=== PATIENT | male | born 1945 | race Caucasian/White ===

== ENCOUNTER 2016-10-30 10:42 | Inpatient (IN) | payer MEDICARE, OTHER ==
[~2016-10-30] VITALS: Ht 182.9 cm; Wt 93.4 kg
[~2016-10-30 10:42] MED LIST: AMPICILLIN 2 GM/2 G1 IV; ASPIRIN 81 MG E81 MG PO; ASPIRIN EC81 M1 PO; CATAPRES TTS-10.1 MG TD; CIPRO500 MG PO; COLACE100 MG PO; CORDARONE200 MG PO; CUBICIN500 MG IV; DEXTROSE 50%/WA50 M2 IV; DILAUD1MGAMP IV; DILAUDID 012 MG/30 M IV; DILAUDID2 MG PO; ELECTROLYTE MISC; ELIQUIS2.5 MG PO; FLORAJEN3 CAPS460 MG PO; FUROSEMIDE10 MG/M1 IV; FUROSEMIDE20 MG PO; FUROSEMIDE40 MG PO; GLUCAGEN1 MG/VIAL IM; GLUCAGEN1 MG/VIAL SC; GLUCOPHAGE1000 MG PO; GLUTOSE 1537.5 GM PO; HEP LOCK F IV; HUMALOG 30100 UNITS/ SC; HYDRALAZINE HCL25 MG PO; HYDRALAZINE20 MG/ML IV; HYDROCODONE-APA1 TAB PO; HYTRIN5 MG PO; HYZAAR 100-25 T1 TAB PO; IPRAT-ALBUT 0.5-3 ML UPD; K-DUR20 MEQ PO; K-TAB10 MEQ PO; KEFLEX500 MG PO; LOVENOX60 MG/0.6 SC; LYRICA75 MG PO; MAXIPIME 2 GM/D52 G1 IV; MERREM 1 GM/NS 11 G1 IV; MIRALAX17 GM PO; NALOXONE HC0.4 MG/M2 IV; NORCO 10/325 TA1 TA1; NYSTATIN1 PWD TOPICAL; OXYBUTYNIN CHLOR5 MG PO; OXYCODONE HCL5 MG PO; PERCOCET 10/3251 TA1 PO; PLAVIX75 MG PO; PRAVACHOL40 MG PO; PRINIVIL20 MG PO; PROTONIX40 MG PO; PROZAC40 MG PO; ROBAXIN500 MG PO; ROXICODONE15 MG PO; SALINE FLUSH10 ML IV; SANTYL30 GM TP; SLOW-MAG 64 MG64 MG PO; THERAGRAN M [BK1 TAB PO; TRICOR145 MG PO; VIBRAMYCIN 100100 MG PO; VIBRAMYCIN50 MG PO; XANAX0.25 MG PO; XANAX1 MG PO; ZOFRAN4 MG PO; ZOLOFT100 MG PO; ZYPREXA2.5 MG PO
[2016-10-30] MEDS ORDERED: ACIDOPHILUS LAC1 CAP PO (10:54)
[2016-10-30] MEDS ORDERED: MAG-OXIDE400 MG PO (10:56)
[2016-10-30] MEDS ORDERED: THEREMS-M1 TAB PO (10:57)
[2016-10-30] MEDS ORDERED: ESTER-C 500 MG1 TAB PO (10:59)
[2016-10-30] MEDS ORDERED: VITAMIN D5000 UNIT PO (11:00)
[2016-10-30] MEDS ORDERED: ARGININE500 MG PO (11:03)
[2016-10-30] MEDS ORDERED: ARGININE1 GM PO (11:06)
[2016-10-30] MEDS ORDERED: PRAVACHOL40 MG PO (11:09)
[2016-10-30] MEDS ORDERED: ZYPREXA5 MG PO (11:11)
[2016-10-30] MEDS ORDERED: CYMBALTA60 MG PO (11:13)
[2016-10-30] MEDS ORDERED: HYDRALAZINE HCL25 MG PO (11:14)
[2016-10-30] MEDS ORDERED: IPRAT-ALBUT 0.5-3 ML UPD (11:17)
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
[2016-10-30 13:51] VITALS: BP 162/70
--- NOTE | 2016-10-30 14:44 | NUR ---
WOUND CARE CONSULT: PT HAS OPEN WOUND ON RIGHT AKA SITE. MEASURES 5.5CM X 5.5CM X 0.5CM. WOUND BED IS RED/BEEFY. SURROUNDING SKIN IS NORMAL. NO TENDON, MUSCLE OR BONE EXPOSED. APPLIED WOUND VAC DRESSING. SETTINGS: -125MMHG/MOD/CONTINUOUS. ALSO NOTED STAGE 3 PRESSURE INJURY TO COCCYX 3.5CM X 2.5CM X 0.5CM ALSO STAGE 3 PRESSURE INJURY TO ISCHIAL TUBEROSITY MEASURING 2.1CM X 1CM X 0.4CM RECOMMEND MAXORB AG TO PRESSURE INJURIES. WILL CONTINUE TO MONITOR.
[2016-10-30 14:59] VITALS: BP 162/70
[2016-10-30 16:12] LABS: BASOPHILS 0.2 % (0.0-2.0); EOSINOPHILS 0.9 % (0-7); HEMATOCRIT 34.9 % (42.0-54.0); HEMOGLOBIN 11.1 g/dL (13.5-17.5); IMMATURE GRANULOCYTES 0.4 % (0-5); LYMPHOCYTES 18.6 % (15-50); MCH 28.6 pg (26.0-34.0); MCHC 31.8 g/dL (31.0-37.0); MCV 89.9 fL (80.0-100.0); MEAN PLATELET VOLUME 10.4 fL (7.4-10.4); MONOCYTES 7.8 % (2-11); NEUTROPHILS 72.1 % (40-80); PLATELET COUNT 195 10x3/uL (130-400); RBC 3.88 10x6/uL (4.20-6.10); RDW 17.4 % (11.5-14.5); WBC 4.5 10x3/uL (4.8-10.8)
[2016-10-30 16:34] LABS: HEMOGLOBIN A1C 5.7 % (4.8-6.0)
[2016-10-30 16:41] LABS: ALBUMIN 2.1 g/dL (3.4-5.0); ALKALINE PHOSPHATASE 54 U/L (46-116); ALT (SGPT) 15 U/L (10-68); BILIRUBIN - TOTAL 0.29 mg/dL (0.2-1.3); CALC OSMOLALITY 283 mosm/kg (275-300); CALCIUM 9.3 mg/dL (8.5-10.1); CARBON DIOXIDE 26.6 mmol/L (21.0-32.0); CHLORIDE - SERUM 108 mmol/L (98-107); CHOL - HDL RATIO 1.9 ratio (2.3-4.9); CHOLESTEROL, TOTAL 103 mg/dL (0-200); GLUCOSE 105 mg/dL (74-106); HDL CHOLESTEROL 53 mg/dL (32-96); LDL CHOLESTEROL 28 mg/dL (0-100); LDL-HDL RATIO 0.5 ratio (1.5-3.5); POTASSIUM - SERUM 3.8 mmol/L (3.5-5.1); PROTEIN - SERUM 6.4 g/dL (6.4-8.2); SODIUM 142 mmol/L (136-145); TRIGLYCERIDE 114 mg/dL (30-200); UREA NITROGEN 14 mg/dL (7-18); eGFR NON AFRICAN AMERICAN 78 mL/min (90-120)
--- NOTE | 2016-10-30 23:45 | NUR ---
B) Recieved laying in bed in his room, alert and oriented, calm and cooperative with assessment, tired and sleeping frequently, I) Administered perscribed medications whole with water, assessed wound vac. assessed FSBS, R) Medications compliant, friendly and pleasant, P) Continue plan of care, continue to monitor.
[2016-10-31 09:27] VITALS: BP 128/56
[2016-10-31 11:54] VITALS: Ht 182.9 cm; Wt 93.4 kg
--- NOTE | 2016-10-31 13:37 | NUR ---
RECEIVED IN BED THIS AM.WOUNDVAC TO RT.AKA INTACT WITH SCANT AMT.OF BLD TINGED DRAINAGE.DRESSING CHANGES DONE TO WOUNDS ON COCCYX AND LT BUTTOCK WITH MEPILEX DRESSING PER BERENICE DIGITAL PRINTER NURSE.IS ORIENTED ONLY TO SELF.STATES"WE ARE IN ASSISTED OR HALF-WAY." ATTEMPTS TO REORIENT TO PLACE AND TIME WITH POOR RESPONSE.LATER IN MORNING ASK "WHAT HAVE THEY CHARGED ME WITH?"IS CALM AND COOPERATIVE.WILL CONTINUE WITH PLAN OF CARE,MONITOR FOR CHANGES AND SAFETY.
--- NOTE | 2016-10-31 15:13 | NUR ---
PATIENT C/O BACK PAIN RATES PAIN 06/03, 15 MG OXYCONTIN PO PROVIDED N OW, WILL MONITOR.
--- NOTE | 2016-10-31 16:20 | NUR ---
SPOKE TO PATIENTS SPOUSE, SON AND DAUGHTER ABOUT PATIENTS STAY HERE AND THE MEDICATIONS, DID PRINT A MEDICATION LIST FOR THEM TO VIEW THE SON WAS VERY CURIOUS AND UPSET TO WHY HE IS ON ZYPREXA, ASKING "WELL, THAT'S FOR SCHIZOPHRENIA OR BIPOLAR, WOULD HE HAVE DEVELOPED IT?" TRIED TO REASSURE SON THAT ZYPREXA'S USE IN HIS DAD'S CASE IS TO HELP WITH THE HALLUCINATIONS AND THE AGGRESSION, EXPLAINED THAT ALL STAFF ARE MONITORING HIS BEHAVIOR AND WE WILL RELAY ALL ISSUES TO THE PSYCHIATRIST. FAMILY DO NO WANT PATIENT TO BE ON 17 MEDICATIONS AND THEY ARE IN HOPES THAT THE MEDICATIONS WILL BE DECREASED SOONER THAN LATER. REASSURED FAMILY THAT THE PSYCHIATRIST WILL ADJUST MEDICATIONS BASED ON HIS FINDINGS AND STAFF DO A REPORT WITH THE DAILY AND HE WILL SEE THE PATIENT DAILY EXCEPT TODAY. FAMILY VERBALIZED UNDERSTANDING.
[2016-10-31 19:45] VITALS: BP 140/56
--- NOTE | 2016-11-01 02:48 | NUR ---
B) Recieved sitting in a nae chair in the day room watching TV, Alert and oriented X 4, calm and cooperative with care, I) Administered perscribed medications, dressing changed on wound vac. two person assist to transfer with a dennis lift. R) medication compliant, resting quietly now, P) Continue plan of care, continue to monitor.
[2016-11-01 08:01] VITALS: BP 162/65
--- NOTE | 2016-11-01 14:26 | NUR ---
B) PATIENT IS AWAKE AND ALERT, ORIENTED TO PERSON AND TIME, I ASKED HIM "HOW ARE YOU" HE SAID "I ASKED MY WHY I COULDN'T GET OUT ON BAIL" EXPLAINED TO HIM THAT "YOU ARE NOT IN SNF, YOU ARE IN THE HOSPITAL, WE ARE TRYING TO MONITOR YOUR MEDICATIONS, THAT'S WHY YOU ARE HERE BECAUSE YOU WERE HALLUCINATING AND PARANOID AND AGGRESSIVE" HE NODDED HIS HEAD "YES". PATIENT IS CALM, BUT SEEING SOME CONFUSION TODAY. HE IS IN A [facility] CHAIR IN THE DAY ROOM, HE HAS RIGHT ABOVE THE KNEE AMPUTATION WITH WOUND VAC ON WOUND. I) PROVIDE PRESCRIBED MEDS, REDIRECT NEEDED. R) PATIENT IS COMPLIANT WITH MEDS, HE DID SHAVE AND BRUSH HIS TEETH. HE SAID HIS BOTTOM HURTS SO BAD THAT IF IT DIDN'T GET WELL SOON, HE WOULD JUST KILL HIMSELF, BUT HE SAID "IT JUST HURTS SO BAD, I HAVE TO SEE A SPECIALIST TO GET IT FIXED". P) CONTINUE PLAN OF CARE.
--- NOTE | 2016-11-01 17:50 | NUR ---
HAD MHT'S BRING PATIENT TO ROOM AND PUT HIM ON HIS SIDE HE IS STILL C/O PAIN IN HIS BUTTOCKS RATES IT 8/10 THE SAME PRIOR TO RECEIVING PAIN MEDICATION.
--- NOTE | 2016-11-01 18:03 | NUR ---
PATIENT IS IN HIS ROOM AND HE IS ON HIS LEFT SIDE OFF HIS BUTTOCKS, HE SAYS HIS BOTTOM IS EASING, BUT IT IS STILL PAINING HIM.
--- NOTE | 2016-11-01 21:16 | NUR ---
RECEIVED IN BEDROOM. LAYING IN BED WITH EYES CLOSED. RESPONDS TO VOICE. CALM AND COOPERATIVE WITH CARE AND ASSESSMENT. NO SIGNS OF HALLUCINATIONS. NO SIGNS OF PARANOIA. CONFUSED. REDIRECT AND REORIENT NEEDED. RESTING IN BED EYES CLOSED AT THIS TIME. CONTINUE PLAN OF CARE
--- NOTE | 2016-11-02 04:56 | NUR ---
In and out Goss cat to relieve urine at 0130, 850 ml laura colored urine collected.At 0212 gave PRN oxycodone 15 mg for back pain 8 of 10.
[2016-11-02 09:11] VITALS: BP 133/61
--- NOTE | 2016-11-02 10:15 | NUR ---
B.) Alert and oriented times three this am, answers questions appropriately. I.) Administer medications and monitor compliance, monitor for any abnormal behavior, redirect and reorient as need. R.) Compliant with medications, no aggression, calm and cooperative. Wound vac dressing in place to right AKA, chair alarm in place and functioning properly. P.) Continue plan of care.
[2016-11-02 12:12] LABS: VITAMIN D 25 HYDROXY 42.6 ng/mL (30.0-100.0)
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
[2016-11-02 20:34] VITALS: BP 135/55
--- NOTE | 2016-11-03 02:17 | NUR ---
RECEIVED IN BEDROOM. LAYING ON BED WITH EYES OPEN. NO SIGNS OF HALLUCINATIONS. NO SIGNS OF PARANOIA. CALM AND COOPERATIVE WITH CARE AND ASSESSMENT. NO SIGNS OF AGGRESSION. WOUND VAC ON. AIR MATTRESS ON. REINFORCE FALLS SAFETY. PM MEDS GIVEN ORDERED. RESTING EYES CLOSED AT THIS TIME. CONTINUE PLAN OF CARE
[2016-11-03 03:08] LABS: RAPID PLASMA REAGIN Non Reactive (Non Reactive)
[2016-11-03 06:13] LABS: FOLATE (FOLIC ACID) - SERUM 9.8 ng/mL (>3.0)
--- NOTE | 2016-11-03 09:19 | NUR ---
Nutrition Follow Up: Chart reviewed. Pt is well known to this RD from multiple previous admits. Pt has refused to eat Diabetic diet in the past and po intake greatly improved when diet was changed to Regular. Diet: Diabetic; Glucerna and Aaron BID PO Intake: 44% (9 meal avg) Stage III ulcer to coccyx; Open wound to R AKA site Wt stable +BM 11/03/16 Labs noted Meds: Humalog, Zofran, Vit D Pt with poor po intake at this time. Pt is not meeting est nutritional needs. Rec changing diet to Regular to promote po intake. Rec Zinc, MV, Vit C supplement daily to promote wound healing. Will continue to send Aaron and Glucerna BID. RD following.
[2016-11-03 12:33] VITALS: BP 131/67
--- NOTE | 2016-11-03 14:37 | NUR ---
(B)RECEIVED PATIENT SITTING IN A CHAIR AT THE NURSES STATION. ORIENTED TO SELF ONLY AEB RELATING HE IS IN "[facility] IN [place]" DAY "WEDNESDAY" AND MONTH "SEPTEMBER." POOR INSIGHT INTO THE REASON FOR HOSPITALIZATION RELATING "CAUSE I'M HURTING." WOUND VAC TO RIGHT AKA. STAGE 3 TO COCCYX AND DRESSING CHANGED PER ORDERS. FREQUENTLY SCOOTS DOWN IN CHAIR AND STAFF HAS TO REPOSITION HIM. FREQUENTLY ASKS TO GO TO THE BATHROOM AND WILL ONLY URINATE ABOUT THREE DROPS AND WILL ASK "WHY DO YOU ALL HAVE TO WATCH ME?" DELUSIONAL AND THINKS IS OUTSIDE TO GET HIM. (I)ADMINISTER MEDS AND MONITOR COMPLIANCE. REORIENT NEEDED. (R)MED COMPLIANT. POOR REORIENTATION DUE TO IMPAIRED ABILITY TO PROCESS AND RETAIN INFORMATION. CONTINUES TO BE CONFUSED AND DELUSIONAL. (P)CONTINUE POC AND MAINTAIN FALL PRECAUTIONS.
--- NOTE | 2016-11-03 14:57 | PN ---
PATIENT:SUGAR LIVE MEDICAL RECORD: [id number] LOCATION:[facility] ADMISSION DATE: 10/30/16 PROGRESS NOTE DATE OF SERVICE: 11/02/2016 SUBJECTIVE: The patient's case was discussed with staff. He has no new complaint. OBJECTIVE: The patient is in good behavioral control with limited insight about his condition. He does tolerate his medicines well. ASSESSMENT: No change in diagnoses. PLAN: The patient has no evidence of acute or direct dangerousness to himself or others if this level of improvement is maintained, I anticipate transitioning him of the hospital tomorrow morning. He should return to rehabilitation. His long-term prognosis is guarded. He is clearly much better since he was admitted and I am gathering that there was some factor affecting his cognition causing a delirium and that is what resulted in the aggressive behavior. TRANSINT:[id number] Voice Confirmation ID: [id number] DOCUMENT ID: [id number] RAFIA DEE MD at 1457 CC: [id number] DICTATION DATE: 11/02/16 1515 LASTING ROOM MACHINE OPERATOR: 11/02/16 1806 ADM IN [facility] [id number] [place] [address]
--- NOTE | 2016-11-03 15:10 | NUR ---
PATIENT DISCHARGED TO [facility] ACCOMPANIED BY AND KERSHAW STAFF VIA FACILITY [facility]AN. PERSONAL BELONGINGS SENT WITH FAMILY AND FACILITY STAFF. PAPERWORK SENT WITH FACILITY STAFF. CONDITION STABLE AT TIME OF DISCHARGE.
--- NOTE | 2016-11-04 12:46 | PN ---
PATIENT:SUGAR LIVE MEDICAL RECORD: [id number] LOCATION:[facility] ADMISSION DATE: 10/30/16 PROGRESS NOTE DATE OF SERVICE: 11/03/2016 SUBJECTIVE: The patient's case was discussed with staff. He has no new complaint. OBJECTIVE: The patient is no longer aggressive or hallucinating. The reason for improvement is uncertain. He will be transitioned out of the hospital and back into rehabilitative services today as he is no longer aggressive. TRANSINT:[id number] Voice Confirmation ID: [id number] DOCUMENT ID: [id number] RAFIA DEE MD at 1246 CC: [id number] DICTATION DATE: 11/03/16 1511 DELIVERY TECHNICIAN: 11/03/16 1531 DIS IN 11/03/16 [facility] [address] [place] [address]
--- NOTE | 2016-11-12 14:27 | DS ---
PATIENT:SUGAR LIVE :41 MEDICAL RECORD: [id number] DISCHARGE SUMMARY ADMISSION DATE: 10/30/16 DISCHARGE DATE: 11/03/16 IDENTIFYING DATA: The patient is 71 years old and he was admitted to the hospital on a voluntary basis secondary to aggression. The patient lives in a local intermediate and he has been aggressive and threatening toward the staff there. The patient says he does not recall any of this and goes on to make an explanation of how he has been mistreated there and the explanation does not really make any kind of logical, coherent sense. He endorsed numerous depressive symptoms. He denied that he was depressed. He clearly had evidence of significant cognitive impairment. He denied substance abuse. He denied psychotic symptoms as well as thoughts of harming himself or others. HOSPITAL COURSE: The patient was admitted to the hospital on a voluntary basis. He was found to be seriously and significantly demented. He was treated with both mood stabilizing and memory enhancing medications and he did show significant improvement through the course of his hospitalization. He was much less angry and labile and showed no evidence of acute or direct dangerousness as well as thoughts of self-harm when he was discharged. He was also treated with antidepressant medication. DISCHARGE DIAGNOSES: AXIS I: Major depression, severe, recurrent without psychotic features. Senile dementia of the Alzheimer's type. AXIS II: None. AXIS III: Diabetes and hypertension. AXIS IV: Moderate stressors. AXIS V: Global assessment of functioning is 35. PLAN: At the time of discharge, the patient was in good behavioral control. He had no evidence of acute or direct dangerousness to himself or others. He will be continued on current medications and follow up will be with his primary care physician. TRANSINT:[id number] Voice Confirmation ID: [id number] DOCUMENT ID: [id number] RAFIA DEE MD at 1427 CC: [id number] DICTATION DATE: 11/11/161705 TRACK REPAIRER HELPER: 11/11/16 171 DIS IN 11/03/16 [id number] [place] [address]
[2016-12-18] MEDS ORDERED: HYDROCODONE-APA1 TAB PO (14:58)
== END 2016-11-03 15:10 | DRG 885 ==
LOC: D.PSYCH 10:42
PROVIDERS: ADMIT Psychiatry & Neurology Psychiatry
DX: F33.2 Major depressive disorder, recurrent severe without psychotic features (principal); F02.81 Dementia in other diseases classified elsewhere, unspecified severity, with behavioral disturbance; G30.1 Alzheimer's disease with late onset; E11.22 Type 2 diabetes mellitus with diabetic chronic kidney disease; I12.9 Hypertensive chronic kidney disease with stage 1 through stage 4 chronic kidney disease, or unspecified chronic kidney disease; N18.3 Chronic kidney disease, stage 3 (moderate); Z79.4 Long term (current) use of insulin; E11.40 Type 2 diabetes mellitus with diabetic neuropathy, unspecified; E55.9 Vitamin D deficiency, unspecified; I73.9 Peripheral vascular disease, unspecified; I25.10 Atherosclerotic heart disease of native coronary artery without angina pectoris; M47.9 Spondylosis, unspecified; L89.159 Pressure ulcer of sacral region, unspecified stage; L89.319 Pressure ulcer of right buttock, unspecified stage; E78.5 Hyperlipidemia, unspecified; Z95.5 Presence of coronary angioplasty implant and graft; Z89.611 Acquired absence of right leg above knee

== ENCOUNTER 2016-11-07 12:48 | Inpatient (IN) | payer MEDICARE, OTHER ==
[~2016-11-07] VITALS: Ht 182.9 cm; Wt 94.8 kg
[~2016-11-07 12:48] MED LIST changes: +ACIDOPHILUS LAC1 CAP PO; +ARGININE1 GM PO; +ARGININE500 MG PO; +CYMBALTA60 MG PO; +ESTER-C 500 MG1 TAB PO; +MAG-OXIDE400 MG PO; +THEREMS-M1 TAB PO; +VITAMIN D5000 UNIT PO; +ZYPREXA5 MG PO
[2016-11-07 13:29] LABS: BASOPHILS 0.2 % (0.0-2.0); EOSINOPHILS 0 % (0-7); HEMATOCRIT 34.1 % (42.0-54.0); HEMOGLOBIN 10.6 g/dL (13.5-17.5); IMMATURE GRANULOCYTES 0.3 % (0-5); LYMPHOCYTES 2.8 % (15-50); MCHC 31.1 g/dL (31.0-37.0); MCV 90.2 fL (80.0-100.0); MEAN PLATELET VOLUME 9.7 fL (7.4-10.4); MONOCYTES 2.8 % (2-11); NEUTROPHILS 93.9 % (40-80); PLATELET COUNT 200 10x3/uL (130-400); RBC 3.78 10x6/uL (4.20-6.10); RDW 16.6 % (11.5-14.5)
[2016-11-07 13:47] LABS: ALBUMIN 2.1 g/dL (3.4-5.0); ANION GAP 11.4 mmol/L (8-16); BILIRUBIN - TOTAL 0.37 mg/dL (0.2-1.3); CALCIUM 8.9 mg/dL (8.5-10.1); CARBON DIOXIDE 26.7 mmol/L (21.0-32.0); CREATININE - SERUM 1.4 mg/dL (0.6-1.3); MAGNESIUM - SERUM 1.5 mg/dL (1.8-2.4); POTASSIUM - SERUM 3.1 mmol/L (3.5-5.1); PROTEIN - SERUM 6.1 g/dL (6.4-8.2)
[2016-11-07 14:48] LABS: APPEARANCE CLOUDY (CLEAR); BILIRUBIN NEGATIVE (NEGATIVE); COLOR YELLOW (YELLOW); GLUCOSE NEGATIVE (NEGATIVE); KETONE NEGATIVE (NEGATIVE); LEUKOCYTE ESTERASE 2+ (NEGATIVE); NITRITE NEGATIVE (NEGATIVE); PROTEIN 2+ mg/dL (NEGATIVE); SPECIFIC GRAVITY 1.015 (1.005-1.020); UROBILINOGEN NORMAL (NORMAL)
[2016-11-07 14:51] LABS: BACTERIA MANY /hpf (NONE SEEN); EPITHELIAL CELLS 0-5 /hpf (0-5); RED CELLS - URINE 0-5 /hpf (0-5)
--- NOTE | 2016-11-07 16:35 | NUR ---
A 73 YEAR OLD ADMITTED TO ROOM 2235 VIA CART FROM ER S/O C/C OF UTI SESPIS WOUND INFECTION AT PRESENT.PLAN OF CARE GONE OVER WITH PT AND .WOUND BUTTOCK AT PRESENT FOUL SMELLING AT PRESENT HOLE IN BUTTOCK HAS HOLE NOTED AT PRESENT.
[2016-11-07 16:39] VITALS: BP 94/38
[2016-11-07 19:00] VITALS: BP 113/55
--- NOTE | 2016-11-07 19:00 | NUR ---
SLEEPING QUIETLY AT PRESENT N/C AT PRESENT.
--- NOTE | 2016-11-07 20:00 | NUR ---
REC'D IN LYING IN BED AWAKE AND ALERT TO SELF. RESP EVEN AND UNLABORED WITH NO DISTRESS NOTED. CAN EXPRESS SOME NEEDS AND WANTS. IV NOTED TO RIGHT WRIST WITH NO REDNESS OR SWELLING NOTED. ASSESSMENT COMPLETED. C/L IN REACH AT BEDSIDE.
[2016-11-07 20:12] VITALS: BP 94/56; BMI 28.4
[2016-11-08] VITALS: BP 106/46
--- NOTE | 2016-11-08 01:19 | NUR ---
RESTING WELL AT THIS TIME WITH NO C/O NOTED OR VOICED. C/L IN REACH AT BEDSIDE.
--- NOTE | 2016-11-08 02:37 | NUR ---
PT IS ALSEEP WITH EASY RESPIRATIONS AND NO DISTRESS NOTED. HIS RT AKA IS DRESSED AND THERE IS TELEMETRY IN PLACE. THE BED IS LOW, RAILS UP X'S 2 WITH THE CALL LIGHT AT HAND.
[2016-11-08 04:00] VITALS: BP 143/72
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
[2016-11-08 07:37] LABS: BASOPHILS 0 % (0.0-2.0); EOSINOPHILS 0 % (0-7); HEMATOCRIT 32.3 % (42.0-54.0); HEMOGLOBIN 9.9 g/dL (13.5-17.5); IMMATURE GRANULOCYTES 0.2 % (0-5); MCH 27.8 pg (26.0-34.0); MCHC 30.7 g/dL (31.0-37.0); MCV 90.7 fL (80.0-100.0); MONOCYTES 1.2 % (2-11); NEUTROPHILS 93.6 % (40-80); PLATELET COUNT 183 10x3/uL (130-400); RBC 3.56 10x6/uL (4.20-6.10); RDW 16.8 % (11.5-14.5); WBC 8.6 10x3/uL (4.8-10.8)
[2016-11-08 07:56] LABS: ALBUMIN 1.9 g/dL (3.4-5.0); BILIRUBIN - TOTAL 0.3 mg/dL (0.2-1.3); CALCIUM 8.4 mg/dL (8.5-10.1); CARBON DIOXIDE 25.4 mmol/L (21.0-32.0); CREATININE - SERUM 1.4 mg/dL (0.6-1.3); PROTEIN - SERUM 6.1 g/dL (6.4-8.2)
[2016-11-08 07:57] LABS: ANION GAP 11.8 mmol/L (8-16); POTASSIUM - SERUM 4.2 mmol/L (3.5-5.1)
[2016-11-08 08:24] VITALS: BP 126/51
--- NOTE | 2016-11-08 11:05 | NUR ---
PATIENT IN BED WITH EYES OPENED. TELEMETRY PLACED BACK ON PATIENT. EXPLAINED NEEDED TO LEAVE ON PER DR. CHAVEZ. PATIENT CONFUSED AND NOT UNDERSTANDING WHAT TELEMETRY IS FOR. FAMILY AT BEDSIDE. CALL LIGHT WITHIN REACH.
[2016-11-08 11:52] VITALS: BP 129/82
--- NOTE | 2016-11-08 16:23 | NUR ---
NORMAL SALINE WET TO DRY DRESSING APPLIED TO RIGHT AKA USING 4X4 AND TAPE. WILL CONTINUE TO MONITOR.
[2016-11-08 16:27] VITALS: BP 146/44
[2016-11-08 19:00] VITALS: BP 156/80
--- NOTE | 2016-11-08 19:55 | NUR ---
RECIEVED PT LYING IN BED AWAKE, EXTREME CONFUSION NOTED, NO CURRENT ANXIETY OR SS OF DISTRESS NOTED, IV SITE TO R HAND WRAPPED FOR PROTECTION, SR'S UP X3, CL IN REACH, ALARM ON, DOOR OPEN FOR EASY VIEWING, WILL MONITOR
--- NOTE | 2016-11-08 21:23 | NUR ---
MEDS GIVEN PER MAR, RAIMUNDO WELL, SAFETY PRECATIONS IN PLACE, CL IN REACH
--- NOTE | 2016-11-09 03:30 | NUR ---
LYING IN BED AWAKE, REMAINS PLEASANTLY CONFUSED, NO DISTRESS NOTED, SAFETY PRECAUTIONS IN PLACE
[2016-11-09 04:00] VITALS: BP 171/78
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
--- NOTE | 2016-11-09 09:45 | NUR ---
PATIENTS ARRIVED AND PT SEEMS TO BE MORE CALM AND MORE ORIENTED TO WHAT IS GOING ON. HE WAS ABLE TO STATE THAT HE WAS IN THE HOSPOTAL AND DID NOT REMEMBER WHAT HAD HAPPENED EARLIER THIS MORNING. BED IN LOW POSITION AND CALL LIGHT WITHIN REACH. WILL CONTINUE TO MONITOR.
[2016-11-09 10:20] VITALS: BP 151/89
--- NOTE | 2016-11-09 11:30 | NUR ---
PLACED PT ON CONTACT ISOLATION PER TR AT THIS TIME.
--- NOTE | 2016-11-09 12:06 | NUR ---
WOUND CARE CONSULT: NOTED STAGE 3 PRESSURE INJURY TO SACRUM MEASURING 3.5CM X 2CM X 1.5CM X 1CM FROM 10-2 OCLOCK. WOUND BED IS PINK AND SHINY WITH ODOR. MODERATE SEROUS DRAINAGE NOTED. CLEANSED WELL WITH WOUND CRM COORDINATOR AND LOOSELY PACKED WITH KERLIX SOAKED WITH NS. WILL DISCUSS WITH DR. WHITE/DR. ANTUNEZ ABOUT POSSIBLE WOUND VAC PLACEMENT. ALSO NOTED REDNESS TO LEFT SACRAL AREA BLANCHABLE. RIGHT SACRAL AREA STAGE 3 PRESSURE INJURY MEASURES 1.5CM X 1CM/YELLOW/PINK WOUND BED. SMALL SEROUS DRAINAGE. RIGHT AKA LOOKS GOOD. WOUND VAC WAS D/C'D LAST WEEK. WOUND MEASURES 5CM X 3CM WITH RED GRANULATING WOUND BED. NO ODOR NOTED. SMALL SEROUS DRAINAGE. WILL CONTINUE TO MONITOR.
[2016-11-09 13:50] VITALS: BP 165/56
--- NOTE | 2016-11-09 14:16 | NUR ---
Patient Name: SUGAR LIVE Admission Status: ER Accout number: [id number] Admission Date: 11-07-2016 : 1945 Admission Diagnosis: Attending: CLAIRE Current LOS: 2 Anticipated DC Date: 11-13-2016 [facility]position[facility] Primary Insurance: MEDICARE A & B Discharge Planning Comments: CM MET WITH PATIENT AND (ASHLEY) REGARDING D/C NEEDS AND PLANS. PATIENT IS CURRENTLY IN [facility] AND WILL GO THERE AT DISCHARGE IF DOES NOT GO HOME. PATIENT IS WANTING TO GO HOME WITH HOME HEALTH AT DISCHARGE IF DOCTOR AGREES TO THAT PLAN INSTEAD OF BACK TO REHAB. PATIENT STATED HE HAS A FLAT ENTRANCE TO HIS HOME AND NO STAIRS INSIDE. PATIENTS PCP IS DR. SY AND USES [facility]. PATIENT STATED HE IS PARTIAL INDEPENDENT WITH HIS CARE THAT HIS HELPS HIM WITH BATHING AND DRESSING. PATIENTS PCP IS DR. SY AND PHARMACY IS [facility]. CM TOLD WE WOULD NEED TO PICK A HOME HEALTH IF HE GOES HOME AND A LIST WAS GIVEN TO HER. CM WILL CONTINUE TO FOLLOW PATIENT WITH D/C NEEDS AND PLANS. PCP DR. SY [facility]- [phone] JEAN (SPOUSE) [phone] Website Designer: Bev Rodriguez Is the patient Alert and Oriented? No 0 * How many steps to enter\exit or inside your home? 0 0 * PCP DR. SY 0 * Pharmacy [facility] 0 * Preadmission Environment [facility] 0 * Facility Name [facility] 0 * ADLs Partial Dependent 0 * Partial ADLs (Assistance needed) Bathing Dressing Medication Management Toileting Transfers 0 * Equipment Walker Wheelchair 0 * Other Equipment [facility] 0 * List name and contact numbers for known caregivers / representatives who currently or will assist patient after discharge: JEAN [phone] * Additional services required to return to the preadmission environment? Yes 0 * Can the patient safely return to the preadmission environment? Yes 0 * Has this patient been hospitalized within the prior 30 days at any hospital? Yes 0 Grand Total: 0
[2016-11-09 14:20] LABS: BASOPHILS 0 % (0.0-2.0); EOSINOPHILS 0 % (0-7); HEMATOCRIT 31.4 % (42.0-54.0); IMMATURE GRANULOCYTES 0.4 % (0-5); LYMPHOCYTES 4.9 % (15-50); MCH 28.4 pg (26.0-34.0); MCHC 31.8 g/dL (31.0-37.0); MCV 89.2 fL (80.0-100.0); MONOCYTES 4.3 % (2-11); NEUTROPHILS 90.4 % (40-80); PLATELET COUNT 201 10x3/uL (130-400); RBC 3.52 10x6/uL (4.20-6.10); RDW 16.7 % (11.5-14.5); WBC 6.7 10x3/uL (4.8-10.8)
[2016-11-09 14:34] LABS: ALKALINE PHOSPHATASE 38 U/L (46-116); ALT (SGPT) 22 U/L (10-68); BILIRUBIN - TOTAL 0.34 mg/dL (0.2-1.3); CALC OSMOLALITY 291 mosm/kg (275-300); CALCIUM 8.9 mg/dL (8.5-10.1); CARBON DIOXIDE 25.8 mmol/L (21.0-32.0); CHLORIDE - SERUM 108 mmol/L (98-107); GLUCOSE 148 mg/dL (74-106); POTASSIUM - SERUM 4.3 mmol/L (3.5-5.1); PROTEIN - SERUM 5.8 g/dL (6.4-8.2); SODIUM 143 mmol/L (136-145); UREA NITROGEN 23 mg/dL (7-18)
[2016-11-09 14:35] LABS: CREATININE - SERUM 0.9 mg/dL (0.6-1.3); eGFR NON AFRICAN AMERICAN 88 mL/min (90-120)
[2016-11-09 16:58] VITALS: BP 136/92
--- NOTE | 2016-11-09 17:37 | NUR ---
QUIET IN ROOM AT PRESENT DENIES ANY NEEDS AT BEDSIDE.
--- NOTE | 2016-11-09 19:37 | NUR ---
FIRST STEP OVERLAY BED NOT APPLIED DURING DAY SHIFT. TASK PASSED ON IN REPORT TO CHRISTIANO TAVERA.
--- NOTE | 2016-11-09 20:13 | NUR ---
PT LYING IN BED AWAKE, ASSESSMENT COMPLETED, CONFUSION WITH PARANOIA NOTED, NO ACUTE DISTRESS, SAFETY MEASURES IN PLACE, WILL MONITOR
[2016-11-09 21:00] VITALS: BP 171/68
--- NOTE | 2016-11-09 21:32 | NUR ---
ROUTINE MEDS GIVEN PER MAR ALONG WITH 2 UNITS OF INSULIN PER SLIDING SCALE FOR BS OF 198, RAIMUNDO WELL, WILL CONTINUE TO MONITOR
--- NOTE | 2016-11-09 23:40 | NUR ---
LYING IN BED AWAKE, NO DISTRESS NOTED, DENIES NEEDS, SAFETY MEASURES IN PLACE
[2016-11-10] VITALS (9 sets, daily range): BP systolic 122–173; BP diastolic 58–80; Ht 182.9 cm; Wt 94.8 kg
[2016-11-10 05:48] LABS: BASOPHILS 0.2 % (0.0-2.0); EOSINOPHILS 0 % (0-7); HEMATOCRIT 30.8 % (42.0-54.0); HEMOGLOBIN 9.8 g/dL (13.5-17.5); IMMATURE GRANULOCYTES 0.7 % (0-5); LYMPHOCYTES 9.4 % (15-50); MCH 28.3 pg (26.0-34.0); MCHC 31.8 g/dL (31.0-37.0); MEAN PLATELET VOLUME 9.8 fL (7.4-10.4); MONOCYTES 5.5 % (2-11); NEUTROPHILS 84.2 % (40-80); PLATELET COUNT 198 10x3/uL (130-400); RBC 3.46 10x6/uL (4.20-6.10); RDW 16.9 % (11.5-14.5)
[2016-11-10 06:04] LABS: WBC 4.3 10x3/uL (4.8-10.8)
[2016-11-10 06:13] LABS: ALBUMIN 1.9 g/dL (3.4-5.0); ANION GAP 11.8 mmol/L (8-16); BILIRUBIN - TOTAL 0.2 mg/dL (0.2-1.3); CALCIUM 8.7 mg/dL (8.5-10.1); CARBON DIOXIDE 24.6 mmol/L (21.0-32.0); CREATININE - SERUM 1.1 mg/dL (0.6-1.3); POTASSIUM - SERUM 4.4 mmol/L (3.5-5.1); PROTEIN - SERUM 5.8 g/dL (6.4-8.2)
--- NOTE | 2016-11-10 07:35 | NUR ---
TELEPHONE CONSENT OBTAINED WITH CHRISTIANO BAUMAN A WITNESS FOR PROCEDURE, BLOOD AND ANESTHESIA CONSENT. SPOKE WITH PT'S , ASHLEY.
--- NOTE | 2016-11-10 08:05 | NUR ---
MEPILEX DRESSING APPLIED TO PT'S BUTTOCK AT THIS TIME. HIBICLENS BATH PROVIDED AND DRESSING TO RIGH STUMP PERFORMED PER ORDER. IV TO RIGHT HAND PATENT. PT ALERT AND ORIENTED X3. 1ST STEP OVERLAY APPLIED TO PT'S BED AND SCD APPLIED TO LLE. ASSESSMENT PERFORMED PER FLOWSHEET. PRN PERCOCET ADMINISTERED PER ORDER WELL SOLU MEDROL. MEDICATION GIVEN WITH SMALL SIP OF WATER. CALL LIGHT IN REACH AND RAMILA MAT ALARM IN USE FOR FALL PRECAUTION . DOOR OPEN, SRX2 AND BED IN LOWEST POSITION AND LOCKED. REMAINS IN CONTACT ISOLATION. WILL CONTINUE WITH PLAN OF CARE.
--- NOTE | 2016-11-10 10:06 | NUR ---
SPOKE WITH OSITO IN SURGERY AND EXPLAINED THAT NO ORDERS WERE AVAILABLE FOR PRE OPERATIVE MEDICATIONS. HE STATED, "CHECK AGAIN IN 10-15 MINUTES."
--- NOTE | 2016-11-10 10:29 | NUR ---
ARMANDO FROM SURGERY HERE FOR PT AT THIS TIME. EXPLAINED THAT NO PRE OP MEDS ORDERED AND ALREADY SPOKE WITH SURGERY REGARDING THIS. NOTE PLACED TO FRONT OF CHART THAT PRE OP MED NOT GIVEN BECAUSE NONE WERE ORDERED. TO OR AT THIS TIME. WILL MONITOR PT WHEN HE RETURNS.
--- NOTE | 2016-11-10 13:00 | NUR ---
RECEIVED BACK TO ROOM 2235 AT THIS TIME FROM RECOVERY VIA BED. AND FAMILY MEMBER AT BEDSIDE. WOUND VAC PRESENT TO COCCYX AND FRIEND PATENT AND DRAINING TO GRAVITY. IV TO RIGHT HAND PATENT. C/O PAIN. REMAINS IN ISOLATION. WILL CONTINUE WITH PLAN OF CARE. POST OP VITALS INITIATED PER PROTOCOL.
--- NOTE | 2016-11-10 14:43 | NUR ---
PRN PERCOCET-5 ADMINISTERED FOR PAIN PER ORDER AT THIS TIME. PAIN 4/10 IN SACRAL AREA. REMAINS AT BEDSIDE. WILL CONTINE WITH PLAN OF CARE.
--- NOTE | 2016-11-10 16:59 | NUR ---
MAGGIE SET UP ON PT'S BED AT THIS TIME. FRIEND CARE PROVIDED WITH FRIEND CARE WIPES AND STICKER PLACED ON FRIEND CASSETTE. REMAINS AT BEDSIDE. CONTINUES TO FOLLOW CONTACT ISOLATION PROCEDURES. DENIES NEED FOR PAIN MEDICATIONS. WOUND VAC PRESENT AND PATENT TO SACRUM. CALL LIGHT IN REACH, RAMILA MAT ALARM IN USE. SCD TO LEFT LEG. WILL CONTINUE WITH PLAN OF CARE.
--- NOTE | 2016-11-10 20:23 | NUR ---
ASSESSMENT COMPLETED, NO ACUTE DISTRESS NOTED, WOUND VAC IN PLACE SUCTIONING AT 125MM/HG, SAFETY MEASURES IN PLACE, CL IN REACH, DOOR OPEN FOR EASY MONITORING
--- NOTE | 2016-11-10 21:25 | NUR ---
MEDS GIVEN PER MAR, INSULIN HELD PER SLIDING SCALE FOR BS OF 103, SAFETY MEASURES IN PLACE, WILL MONITOR
--- NOTE | 2016-11-10 23:28 | NUR ---
PRN PERCOCET AND ZOFRAN GIVEN FOR C/O PAIN AND NAUSEA, RAIMUNDO WELL, NO OTHER NEEDS NOTED, SAFETY MEASURES IN PLACE
--- NOTE | 2016-11-11 01:33 | NUR ---
RESTING WITH EYES CLOSED, RESP WITH EASE, NO DISTRESS NOTED, SAFETY MEASURES IN PLACE, CL IN REACH
[2016-11-11 04:00] VITALS: BP 152/73
[2016-11-11 06:50] LABS: BASOPHILS 0 % (0.0-2.0); EOSINOPHILS 0 % (0-7); HEMATOCRIT 31.6 % (42.0-54.0); HEMOGLOBIN 9.9 g/dL (13.5-17.5); IMMATURE GRANULOCYTES 1.4 % (0-5); LYMPHOCYTES 8.9 % (15-50); MCHC 31.3 g/dL (31.0-37.0); MCV 89.3 fL (80.0-100.0); MEAN PLATELET VOLUME 10.3 fL (7.4-10.4); MONOCYTES 6.7 % (2-11); PLATELET COUNT 235 10x3/uL (130-400); RBC 3.54 10x6/uL (4.20-6.10); RDW 16.9 % (11.5-14.5); WBC 4.2 10x3/uL (4.8-10.8)
[2016-11-11 07:14] LABS: ANION GAP 12.1 mmol/L (8-16); BILIRUBIN - TOTAL 0.2 mg/dL (0.2-1.3); CALCIUM 8.5 mg/dL (8.5-10.1); CREATININE - SERUM 1.1 mg/dL (0.6-1.3); POTASSIUM - SERUM 4.1 mmol/L (3.5-5.1); PROTEIN - SERUM 5.4 g/dL (6.4-8.2)
--- NOTE | 2016-11-11 07:45 | NUR ---
REMAINS IN CONTACT ISOLATION. ALERT AND ORIENTED. DENIES NEEDS AT THIS TIME. CALL LIGHT IN REACH, DOOR OPEN AND RAMILA MAT ALARM IN USE. WILL CONTINUE WITH PLAN OF CARE.
[2016-11-11 08:24] VITALS: BP 148/70
--- NOTE | 2016-11-11 09:19 | NUR ---
SCHEDULED MEDICATIONS ADMINISTERED AT THIS TIME. PRN PERCOCET-5 ADMINISTERED FOR PAIN. FRIEND CATHETER CARE PROVIDED WITH CATHETER CARE WIPES. DRESSING CHANGE TO RIGHT STUMP PERFORMED PER ORDER. AT BEDSIDE. PT REMAINS IN CONTACT ISOLATION. WILL CONTINUE WITH PLAN OF CARE.
[2016-11-11 12:43] VITALS: BP 141/87
--- NOTE | 2016-11-11 15:34 | NUR ---
CM REASSESSMENT NOTE: CM SPOKE WITH PATIENT AND REGARDING HOME HEALTH AND A HOSPITAL BED WITH AIR MATTRESS. PATIENT CHOSE [facility] AND SIGNED THE [facility]OUTH FORM. PATIENT AND WANTS TO SPEAK TO DR. FRIEDMAN TOMORROW REGARDING THE HOSPITAL BED AND AIR MATTRESS. CM WILL CONTINUE TO FOLLOW PATIENT WITH D/C NEEDS AND PLANS.
--- NOTE | 2016-11-11 15:34 | NUR ---
SCHEDULED MEDICATIONS ADMINISTERED AT THIS TIME. PRN PERCOCET-5 ADMINISTERED PER ORDER FOR PAIN 6/10 INCISIONALLY. AT BEDSIDE. REMAINS IN CONTACT ISOLATION.
[2016-11-11 16:21] VITALS: BP 143/74
[2016-11-11 19:00] VITALS: BP 170/76
[2016-11-12 04:00] VITALS: BP 157/69
--- NOTE | 2016-11-12 04:00 | NUR ---
RN NOTE: PT RESTING QUIETLY IN SEMI MEDINA'S POSITION. SIDE RAILS UP X2 FOR SAFETY. CALL LIGHT WITHIN REACH.
[2016-11-12 05:25] LABS: BASOPHILS 0.2 % (0.0-2.0); EOSINOPHILS 0 % (0-7); HEMATOCRIT 29.8 % (42.0-54.0); HEMOGLOBIN 9.2 g/dL (13.5-17.5); IMMATURE GRANULOCYTES 3.5 % (0-5); LYMPHOCYTES 19.1 % (15-50); MCH 27.8 pg (26.0-34.0); MCHC 30.9 g/dL (31.0-37.0); MEAN PLATELET VOLUME 10.1 fL (7.4-10.4); MONOCYTES 8.5 % (2-11); NEUTROPHILS 68.7 % (40-80); PLATELET COUNT 209 10x3/uL (130-400); RBC 3.31 10x6/uL (4.20-6.10); RDW 16.9 % (11.5-14.5); WBC 5.2 10x3/uL (4.8-10.8)
[2016-11-12 06:08] LABS: ALBUMIN 1.9 g/dL (3.4-5.0); ALKALINE PHOSPHATASE 45 U/L (46-116); ALT (SGPT) 20 U/L (10-68); CALC OSMOLALITY 284 mosm/kg (275-300); CALCIUM 9.1 mg/dL (8.5-10.1); CARBON DIOXIDE 29.2 mmol/L (21.0-32.0); CHLORIDE - SERUM 108 mmol/L (98-107); POTASSIUM - SERUM 3.8 mmol/L (3.5-5.1); PROTEIN - SERUM 5.4 g/dL (6.4-8.2); SODIUM 142 mmol/L (136-145); UREA NITROGEN 19 mg/dL (7-18); eGFR NON AFRICAN AMERICAN 78 mL/min (90-120)
[2016-11-12 06:09] LABS: GLUCOSE 94 mg/dL (74-106)
--- NOTE | 2016-11-12 07:30 | NUR ---
PATIENT IN SEMIFOWLER POSITION WITH EYES OPENED, TALKING ON THE PHONE. ASSESSMENT COMPLETED AT THIS TIME. NO NEEDS VOICED EXCEPT FOR A CUP OF ICE. CUP OF ICE WAS GIVEN.
[2016-11-12 08:35] VITALS: BP 135/63
--- NOTE | 2016-11-12 10:25 | NUR ---
PATIENTS PAIN IS NOT CONTROLLED WITH HIS PERCOCET AND MORPHINE. PAIN LEVEL DROPPED "FOR A FEW MINUTES" BUT IS "STAYING AROUND A 7 OR HIGHER". CALL WAS PLACED TO MARIA C SUN WITH DR FRIEDMAN. NEW ORDERS RECEIVED.
--- NOTE | 2016-11-12 12:39 | NUR ---
NUTRITION MONITORING & EVAL CHART REVIEWED. PT REMAINS IN ISOLATION. TOLERATING DIABETIC DIET. 75% INTAKE RECENT MEALS. RD FOLLOWING
[2016-11-12 12:48] VITALS: BP 124/56
--- NOTE | 2016-11-12 16:12 | NUR ---
HAVE DISCUSSED WITH HOW THE ELEVATED BLOOD SUGARS HINDER HEALING, YET KEEPS GIVING PATIENT FOODS THAT HE SHOULD NOT EAT.
[2016-11-12 16:37] VITALS: BP 127/56
[2016-11-12 22:41] VITALS: BP 147/92
[2016-11-13] VITALS: BP 161/60
[2016-11-13 06:07] VITALS: BP 112/34
[2016-11-13 06:47] LABS: BASOPHILS 0.1 % (0.0-2.0); EOSINOPHILS 0 % (0-7); HEMATOCRIT 31.4 % (42.0-54.0); HEMOGLOBIN 9.9 g/dL (13.5-17.5); IMMATURE GRANULOCYTES 4.2 % (0-5); LYMPHOCYTES 9.7 % (15-50); MCH 28.3 pg (26.0-34.0); MCHC 31.5 g/dL (31.0-37.0); MCV 89.7 fL (80.0-100.0); MEAN PLATELET VOLUME 10.2 fL (7.4-10.4); PLATELET COUNT 231 10x3/uL (130-400); RDW 16.7 % (11.5-14.5)
[2016-11-13 06:49] LABS: WBC 6.7 10x3/uL (4.8-10.8)
[2016-11-13 07:05] LABS: ALBUMIN 1.9 g/dL (3.4-5.0); ALKALINE PHOSPHATASE 66 U/L (46-116); ALT (SGPT) 18 U/L (10-68); CALCIUM 8.6 mg/dL (8.5-10.1); CARBON DIOXIDE 25.3 mmol/L (21.0-32.0); CHLORIDE - SERUM 106 mmol/L (98-107); CREATININE - SERUM 0.9 mg/dL (0.6-1.3); PROTEIN - SERUM 5.5 g/dL (6.4-8.2); SODIUM 139 mmol/L (136-145); UREA NITROGEN 22 mg/dL (7-18); eGFR NON AFRICAN AMERICAN 88 mL/min (90-120)
[2016-11-13 07:06] LABS: CALC OSMOLALITY 285 mosm/kg (275-300); GLUCOSE 194 mg/dL (74-106); POTASSIUM - SERUM 4.5 mmol/L (3.5-5.1)
[2016-11-13 08:31] VITALS: BP 153/82
--- NOTE | 2016-11-13 09:00 | NUR ---
SCHEDULED MEDICATIONS ADMINSITERED AT THIS TIME. CHIEF SUBSTATION OPERATOR IN USE FOR PAIN CONTROL. REMAINS IN CONTACT ISOLATION. FRIEND PATENT AND DRAINING TO GRAVITY. ALERT AND ORIENTED. IV TO RIGHT HAND PATENT WITH NO S/S OF INFILTRATION. ASSESSMENT PERFORMED PER FLOWSHEET. ON 1ST STEP OVERLAY. SCD TO LEFT LEG IN USE AND IN WORKING ORDER. RAMILA MAT ALARM FOR FALL PRECAUTIONS. CALL LIGHT IN REACH, WILL CONTINUE WITH PLAN OF CARE.
--- NOTE | 2016-11-13 09:31 | NUR ---
PT APPEARS TO BE SLEEPING. WOUND VAC TO BUTTOCKS. NO DISTRESS NOTED. WILL CONTINUE TO MONITOR.
[2016-11-13 11:36] VITALS: BP 137/69
--- NOTE | 2016-11-13 11:50 | NUR ---
MEDICATIONS ADMINISTERED PER ORDER AT THIS TIME. DRESSING TO RIGHT STUMP PER ORDER. WOUND VAC REMAINS PATENT TO SACRUM. DRESSING TO RIGHT HAND IV CHANGED AT THIS TIME. IV TUBING CHANGED PER PROTOCOL AND FRIEND CARE PROVIDED WITH FRIEND CARE WIPES. DENIES FURTHER NEEDS. POSITIONED UPRIGHT IN BED AND POSITIONED ON RIGHT SIDE. AT BEDSIDE. REMAINS IN CONTACT ISOLATION. WILL CONTINUE WITH PLAN OF CARE.
--- NOTE | 2016-11-13 14:08 | NUR ---
WOUND VAC DRESSING CHANGE: WOUND TYPE: SURGICALLY DEBRIDED PRESSURE ULCERS WOUND LOCATION: COCCYX AND RIGHT COCCYX WOUND AGE IN MONTHS:PRESSURE ULCERS PRESENT FOR SEVERAL MONTHS DEBRIDEMENT ATTEMPTED IN LAST 10 DAYS? DATE/TYPE: YES/SURGICAL DEBRIDEMENT 11/10/16 SERIAL DEBRIDEMENTS REQUIRED? UNKNOWN MEASUREMENT DATE: 11/13/16 1: COCCYX 4CM X 4CM X 2.5CM X 1.5CM FROM 6 TO 12 OCLOCK 2: RIGHT COCCYX 2CM X 4CM X 0.1CM FULL THICKNESS? YES MUSCLE, TENDON OR BONE EXPOSED? MUSCLE UNDERMINING? YES SEE ABOVE TUNNELING/SINUS? NO APPEARANCE OF WOUND BED : COCCYX: RED/PINK RIGHT COCCYX: PINK/YELLOW EXUDATE (AMOUNT, COLOR, ODOR): SMALL SEROUS NO ODOR FOAM TYPE: BLACK # OF PIECES USED: 2 PIECES EDUCATION:
[2016-11-13 15:30] VITALS: BP 132/65
[2016-11-13 16:14] LABS: AEROBE ID Final report (()); RESULT 1 Escherichia coli (())
[2016-11-13 16:14] LABS: AEROBE ID Final report (()); RESULT 1 Escherichia coli (())
[2016-11-13 16:14] LABS: AEROBE ID Final report (()); RESULT 1 Escherichia coli (())
--- NOTE | 2016-11-13 20:16 | NUR ---
PT RESTING IN BED RECEIVING RESP TX AT THIS TIME. PT IS A&OX4. PT DENIES NEEDS AT THIS TIME. BED LOW. CL IN REACH.
[2016-11-13 20:20] VITALS: BP 128/96
[2016-11-14 00:36] VITALS: BP 157/66
[2016-11-14 04:34] VITALS: BP 161/79
[2016-11-14 05:51] LABS: BASOPHILS 0.2 % (0.0-2.0); EOSINOPHILS 0 % (0-7); HEMATOCRIT 32.4 % (42.0-54.0); HEMOGLOBIN 10.1 g/dL (13.5-17.5); LYMPHOCYTES 7.9 % (15-50); MCH 28.1 pg (26.0-34.0); MCHC 31.2 g/dL (31.0-37.0); MEAN PLATELET VOLUME 10.2 fL (7.4-10.4); NEUTROPHILS 81.9 % (40-80); PLATELET COUNT 233 10x3/uL (130-400); RDW 17.2 % (11.5-14.5); WBC 6.6 10x3/uL (4.8-10.8)
[2016-11-14 06:25] LABS: ALKALINE PHOSPHATASE 121 U/L (46-116); ALT (SGPT) 14 U/L (10-68); BILIRUBIN - TOTAL 0.17 mg/dL (0.2-1.3); CALC OSMOLALITY 288 mosm/kg (275-300); CALCIUM 8.9 mg/dL (8.5-10.1); CARBON DIOXIDE 24.5 mmol/L (21.0-32.0); CHLORIDE - SERUM 107 mmol/L (98-107); GLUCOSE 199 mg/dL (74-106); POTASSIUM - SERUM 4.8 mmol/L (3.5-5.1); PROTEIN - SERUM 5.8 g/dL (6.4-8.2); SODIUM 140 mmol/L (136-145); UREA NITROGEN 23 mg/dL (7-18); eGFR NON AFRICAN AMERICAN 78 mL/min (90-120)
--- NOTE | 2016-11-14 07:10 | NUR ---
LYING SUPINE WITH EYES CLOSED AND RESPIRATIONS EVEN AND NON LABORED. REMAINS IN CONTACT ISOLATION. CALL LIGHT IN REACH, WILL CONTINUE WITH PLAN OF CARE.
[2016-11-14 09:30] VITALS: BP 141/70
--- NOTE | 2016-11-14 09:54 | NUR ---
SCHEDULED MEDICATIONS ADMINISTERED AT THIS TIME. IV TO RIGHT HAND PATENT. ASSESSMENT PERFORMED PER FLOWSHEET. DRESSING TO RIGHT STUMP PERFORMED PER ORDERS. FRIEND CARE PROVIDED USING FRIEND CARE WIPES. SNOW RANGER IN USE FOR PAIN AT THIS TIME. CALL LIGHT IN REACH. SCD OFF PER PT. WILL CONTINUE WITH PLAN OF CARE.
--- NOTE | 2016-11-14 12:14 | NUR ---
SCHEDULED FLORAJEN ADMINISTERED AT THIS TIME. FSBS 149, SO NO INSULIN ADMINISTERED AT THIS TIME.
[2016-11-14 12:42] VITALS: BP 186/70
--- NOTE | 2016-11-14 15:06 | NUR ---
MORPHINE DEVELOPMENTAL BEHAVIORAL PHYSICIAN SYRINGE FILLED BY CHRISTIANO HANEY AT THIS TIME. PT REMAINS IN CONTACT ISOLATION AND AT BEDSIDE.
--- NOTE | 2016-11-14 16:27 | NUR ---
SCHEDULED MEDICATIONS ADMINISTERED AT THIS TIME. FSBS 168 AND COVERED WITH 2 UNITS OF HUMALOG PER SLIDING SCALE. DENIES PAIN AT THIS TIME. REMAINS AT BEDSIDE AND PT REMAINS IN CONTACT ISOLATION.
[2016-11-14 17:22] VITALS: BP 130/60
[2016-11-15] VITALS: BP 171/63
--- NOTE | 2016-11-15 02:30 | NUR ---
PATIENT SLEEPING IN SEMI-FOWLERS POSITION. NO VISUAL SIGNS OF DISTRESS.
[2016-11-15 04:00] VITALS: BP 193/86
--- NOTE | 2016-11-15 07:41 | NUR ---
PATIENT IS RESTING IN BED. PATIENT IS AWAKE, ALERT, AND ORIENTED X4. PATIENT IS ON CONTACT ISOLATION. SCD NOTED TO PATIENT'S LEFT LOWER EXTREMITY. OLD RIGHT AKA NOTED. PATIENT IS ON A FIRST STEP OVERLAY MATTRESS. PATIENT DENIES ANY NEEDS AT PRESENT TIME. TURN EVERY 2 HOURS. CALL LIGHT IN PATIENT'S REACH. WILL MONITOR.
[2016-11-15 08:25] VITALS: BP 156/70
--- NOTE | 2016-11-15 10:07 | NUR ---
PATIENT RESTING IN BED. PATIENT IS AWAKE, ALERT, AND ORIENTED X4. ASSESSMENT COMPLETED PER FLOWSHEET. SCHEDULED MORNING MEDICATIONS GIVEN TO PATIENT. PATIENT TOLERATED WELL WITH ORANGE JUICE. PATIENT IS ON CONTACT ISOLATION. SCD NOTED TO RIGHT LOWER EXTREMITY. RIGHT AKA NOTED. FRIEND PATENT AND DRAINING CLEAR DAVID COLORED URINE. TURN EVERY 2 HOURS. PATIENT IS ON A FIRST STEP OVERLAY MATTRESS. WOUND VAC IN PLACE TO PATIENT'S COCCYX AREA. PATIENT DENIES ANY NEEDS AT PRESENT TIME. CALL LIGHT IN REACH. WILL MONITOR.
[2016-11-15 11:48] LABS: BASOPHILS 0.1 % (0.0-2.0); EOSINOPHILS 0 % (0-7); HEMOGLOBIN 9.8 g/dL (13.5-17.5); IMMATURE GRANULOCYTES 1.6 % (0-5); LYMPHOCYTES 8.7 % (15-50); MCH 28.4 pg (26.0-34.0); MCHC 30.6 g/dL (31.0-37.0); MEAN PLATELET VOLUME 9.7 fL (7.4-10.4); MONOCYTES 3.3 % (2-11); NEUTROPHILS 86.3 % (40-80); PLATELET COUNT 203 10x3/uL (130-400); RBC 3.45 10x6/uL (4.20-6.10); RDW 17.9 % (11.5-14.5)
[2016-11-15 11:52] LABS: MCV 92.8 fL (80.0-100.0); WBC 13.3 10x3/uL (4.8-10.8)
[2016-11-15 12:08] LABS: ALBUMIN 1.8 g/dL (3.4-5.0); ALKALINE PHOSPHATASE 82 U/L (46-116); ALT (SGPT) 14 U/L (10-68); BILIRUBIN - TOTAL 0.21 mg/dL (0.2-1.3); CALC OSMOLALITY 291 mosm/kg (275-300); CALCIUM 8.6 mg/dL (8.5-10.1); CARBON DIOXIDE 25.9 mmol/L (21.0-32.0); CHLORIDE - SERUM 108 mmol/L (98-107); GLUCOSE 189 mg/dL (74-106); POTASSIUM - SERUM 4.5 mmol/L (3.5-5.1); PROTEIN - SERUM 5.1 g/dL (6.4-8.2); SODIUM 142 mmol/L (136-145); UREA NITROGEN 23 mg/dL (7-18); eGFR NON AFRICAN AMERICAN 78 mL/min (90-120)
[2016-11-15 12:48] VITALS: BP 138/63
[2016-11-15 16:24] VITALS: BP 145/72
--- NOTE | 2016-11-15 19:35 | NUR ---
RECIEVED SHIFT REPORT. PT IS LYING IN BED. ALERT AND ORIENTED AND ABLE TO VERBALIZE NEEDS. IV IS PATENT AND FLUIDS RUNNING AT K[facility]. SCD TO LEFT LEG. FRIEND IS DRAINING URINE BY GRAVITY. PT REQUIRES ASSISTANCE TURNING IN BED FOR COMFORT AND SKIN CARE. PT STATES PAIN IS 9/10 WITH GEOSCIENCES FACULTY MEMBER PUMP. ISOLATION PRECAUTIONS IN PLACE. NO NEEDS ARE VERBALIZED AT THIS TIME. WILL CONTINUE TO MONITOR. SIDE RAILS ARE UP X 2. BED IS IN LOWEST POSITION. CALL LIGHT IS WITHIN REACH.
--- NOTE | 2016-11-15 20:43 | NUR ---
SHIFT ASSESSMENT COMPLETED. NIGHT MEDS GIVEN WITH NO PROBLEMS. PT RECIEVED 4 UNITS INSULIN PER SLIDING SCALE FOR WEBW=961. NO NEEDS ARE VOICED. WILL MONITOR. SIDE RAILS X 2. BED LOW. CALL LIGHT IN REACH.
[2016-11-16] VITALS: BP 167/66
--- NOTE | 2016-11-16 03:35 | NUR ---
PT ACCIDENTALLY PULLED IV TO RIGHT FOREARM OUT. D/C'D WITH TIP INTACT. NEW IV RESITED IN CLOSE PROXIMITY TO OLD IV SITE TO RIGHT FOREARM X 1 ATTEMPT. GOOD BLOOD RETURN. FLUSHES W/O DIFFICULTY. FLUIDS ARE SNOW REMOVER HOOKED BACK UP PER ORDER. DENIES NEEDS. WILL MONITOR. SIDE RAILS X 2. BED LOW. CALL LIGHT IN REACH.
[2016-11-16 04:00] VITALS: BP 154/60
[2016-11-16 06:41] LABS: BASOPHILS 0.1 % (0.0-2.0); EOSINOPHILS 0 % (0-7); HEMATOCRIT 29.7 % (42.0-54.0); HEMOGLOBIN 9.1 g/dL (13.5-17.5); LYMPHOCYTES 6.5 % (15-50); MCH 27.8 pg (26.0-34.0); MCHC 30.6 g/dL (31.0-37.0); MONOCYTES 3.6 % (2-11); NEUTROPHILS 87.8 % (40-80); PLATELET COUNT 215 10x3/uL (130-400); RBC 3.27 10x6/uL (4.20-6.10); RDW 17.7 % (11.5-14.5)
[2016-11-16 06:42] LABS: MCV 90.8 fL (80.0-100.0); WBC 9.1 10x3/uL (4.8-10.8)
[2016-11-16 07:09] LABS: ALBUMIN 1.8 g/dL (3.4-5.0); ALKALINE PHOSPHATASE 87 U/L (46-116); ALT (SGPT) 14 U/L (10-68); CALC OSMOLALITY 287 mosm/kg (275-300); CALCIUM 8.3 mg/dL (8.5-10.1); CARBON DIOXIDE 28.8 mmol/L (21.0-32.0); CHLORIDE - SERUM 105 mmol/L (98-107); CREATININE - SERUM 0.9 mg/dL (0.6-1.3); GLUCOSE 194 mg/dL (74-106); POTASSIUM - SERUM 4.5 mmol/L (3.5-5.1); PROTEIN - SERUM 5.3 g/dL (6.4-8.2); SODIUM 140 mmol/L (136-145); UREA NITROGEN 24 mg/dL (7-18); VANCOMYCIN - TROUGH 13.8 ug/mL (10.0-20.0); eGFR NON AFRICAN AMERICAN 88 mL/min (90-120)
--- NOTE | 2016-11-16 08:12 | NUR ---
AWAKE AND ALERT. ORIENTED X3. NO C/O AT THIS TIME. LUNGS HAVE CRACKLES THROUGHOUT LUNG MARTIN. NO COUGH NOTED AT THIS TIME. SKIN IS INTACT WITHOUT REDNESS EXCEPT WOUND TO RIGHT AKA AND STAGE 4 TO COCCYX WHICH HAS A DRY INTACT DRESSING IN PLACE. SCSD'S IN PLACE TO LEFT LEG. FRIEND PATNET WITH CLEAR YELLOW URINE. IV TO RIGHT FOREARM IS PATENT WITHOUT REDNESS AT INSERTION SITE. PATIENT ON FIRST STEP OVERLAY. DENIES NEEDS.
--- NOTE | 2016-11-16 11:09 | NUR ---
WOUND VAC DRESSING CHANGE WOUND TYPE: surgically debrided pressure ulcers WOUND LOCATION:#1 Coccyx #2 right coccyx WOUND AGE IN MONTHS: months DEBRIDEMENT ATTEMPTED IN LAST 10 DAYS? DATE/TYPE: 11/10/16 surgical debridement SERIAL DEBRIDEMENTS REQUIRED? unknown MEASUREMENT DATE: 11/16/16 FULL THICKNESS?#1 coccyx 4cm x 3cm x 2.5cm x 2.1cm from 6-12 oclock #2 right coccyx 1cm x 1cm x 0.2cm MUSCLE, TENDON OR BONE EXPOSED? muscle (#1) UNDERMINING? see above measurements TUNNELING/SINUS? no APPEARANCE OF WOUND BED : #1 red/yellow #2 pink/yellow EXUDATE (AMOUNT, COLOR, ODOR): small, brown no odor FOAM TYPE: black # OF PIECES USED: 2 (wound beds) 1 for bridge EDUCATION: pressure relief. JENNIE wound is healing well. Pt tolerated well.
--- NOTE | 2016-11-16 12:28 | NUR ---
FSBS WNL NO COVERAGE REQUIRED. DENIES NEEDS. AT BEDSIDE.
[2016-11-16 12:38] VITALS: BP 159/62
[2016-11-16 16:48] VITALS: BP 148/74
--- NOTE | 2016-11-16 18:46 | NUR ---
PICC TO RIGHT UPPER ARM IN GOOD POSITION PER JHONNY HSIEH RN. IV TO RIGHT FOREARM D/C WITH CATHETER INTACT. DENIES NEEDS. NO CHANGES NOTED.
[2016-11-16 19:00] VITALS: BP 165/66
--- NOTE | 2016-11-16 22:48 | NUR ---
REC'D. DURING WALKINK ROUNDS IN BED ALERT ORIENTED X3,DRSG. DRY AND INTACT TO RT.AKA WITH WOUND VAC TO SACRAL AREA STAGE IV DECUB.WILL CONTINUE TO MONITOR NEURO VASCULAR STATUS AND FOLLOW CURRENT PLAN OF CARE,
--- NOTE | 2016-11-16 23:50 | NUR ---
RESTING WITH EYES CLOSED, RESP WITH EASE, WOUND VAC OPERATING WITH NO DIFFICULTY, FALL AND ISOLATION PRECAUTIONS IN PLACE, CL IN REACH
[2016-11-17 04:00] VITALS: BP 156/72
[2016-11-17 05:53] LABS: BASOPHILS 0.1 % (0.0-2.0); EOSINOPHILS 0.1 % (0-7); HEMATOCRIT 32.5 % (42.0-54.0); HEMOGLOBIN 9.9 g/dL (13.5-17.5); IMMATURE GRANULOCYTES 1.9 % (0-5); LYMPHOCYTES 11.3 % (15-50); MCH 27.9 pg (26.0-34.0); MCHC 30.5 g/dL (31.0-37.0); MCV 91.5 fL (80.0-100.0); MEAN PLATELET VOLUME 10.1 fL (7.4-10.4); MONOCYTES 5.1 % (2-11); NEUTROPHILS 81.5 % (40-80); PLATELET COUNT 210 10x3/uL (130-400); RBC 3.55 10x6/uL (4.20-6.10); RDW 17.9 % (11.5-14.5); WBC 9.7 10x3/uL (4.8-10.8)
[2016-11-17 05:59] LABS: ALBUMIN 1.7 g/dL (3.4-5.0); ALKALINE PHOSPHATASE 89 U/L (46-116); ALT (SGPT) 13 U/L (10-68); CALC OSMOLALITY 286 mosm/kg (275-300); CALCIUM 8.1 mg/dL (8.5-10.1); CARBON DIOXIDE 29.4 mmol/L (21.0-32.0); CHLORIDE - SERUM 106 mmol/L (98-107); CREATININE - SERUM 0.9 mg/dL (0.6-1.3); POTASSIUM - SERUM 4.2 mmol/L (3.5-5.1); PROTEIN - SERUM 5.3 g/dL (6.4-8.2); SODIUM 141 mmol/L (136-145); UREA NITROGEN 23 mg/dL (7-18); eGFR NON AFRICAN AMERICAN 88 mL/min (90-120)
[2016-11-17 06:00] LABS: GLUCOSE 140 mg/dL (74-106)
[2016-11-17 08:31] VITALS: BP 165/81
--- NOTE | 2016-11-17 08:36 | NUR ---
PT ASSESSMENT COMPLETE AWAKE AND ALERT HAS RHONCHI NOTED BILATERAL UPPER LOBES AND DIMINISHED BASES NOTED TO HAVE INSPIRATORY AND EXPIRATORY WHEEZES. WOUND VAC NOTED TO COCCYX AND SCD TO LEFT LE HAS DRESSING INTACT TO RAKA. ON 1ST STEP OVERLAY MATRESS. HAS MIDLINE PICC NOTED TO RIGHT AC PATENT TO NS AT KVO WELL MORPHINE MANAGER REVIEW.
--- NOTE | 2016-11-17 10:00 | NUR ---
PT NOTED TO FEEL WARM TO TOUCH TEMP CHECKED NOTED TO BE 102.1 TYLENOL PER ORDER GIVEN MD NOTIFIED NEW ORDERS FOR CXR AND BC X 2 WILL MONITOR
[2016-11-17 12:59] VITALS: BP 145/65
--- NOTE | 2016-11-17 16:19 | NUR ---
PT RESTING IN BED WITH FAMILY AT SIDE NO ACUTE DISTRESS NTOED VOICES ALL NEEDS TO STAFF
[2016-11-17 16:29] VITALS: BP 123/82
--- NOTE | 2016-11-18 00:35 | NUR ---
RESTING WITH EYES CLOSED, RESP WITH EASE, NO DISTRESS NOTED, CL IN REACH
[2016-11-18 04:00] VITALS: BP 140/52
[2016-11-18 06:46] LABS: BASOPHILS 0.1 % (0.0-2.0); EOSINOPHILS 0.4 % (0-7); HEMATOCRIT 30.1 % (42.0-54.0); HEMOGLOBIN 9.2 g/dL (13.5-17.5); IMMATURE GRANULOCYTES 1.6 % (0-5); LYMPHOCYTES 10.9 % (15-50); MCH 28.1 pg (26.0-34.0); MCHC 30.6 g/dL (31.0-37.0); MEAN PLATELET VOLUME 9.9 fL (7.4-10.4); MONOCYTES 3.9 % (2-11); NEUTROPHILS 83.1 % (40-80); PLATELET COUNT 191 10x3/uL (130-400); RBC 3.27 10x6/uL (4.20-6.10); WBC 8.4 10x3/uL (4.8-10.8)
[2016-11-18 07:14] LABS: ALBUMIN 1.5 g/dL (3.4-5.0); ALKALINE PHOSPHATASE 100 U/L (46-116); ALT (SGPT) 12 U/L (10-68); BILIRUBIN - TOTAL 0.22 mg/dL (0.2-1.3); CALC OSMOLALITY 283 mosm/kg (275-300); CALCIUM 8.9 mg/dL (8.5-10.1); CARBON DIOXIDE 32.3 mmol/L (21.0-32.0); CHLORIDE - SERUM 105 mmol/L (98-107); GLUCOSE 116 mg/dL (74-106); POTASSIUM - SERUM 4.1 mmol/L (3.5-5.1); PROTEIN - SERUM 5.1 g/dL (6.4-8.2); SODIUM 140 mmol/L (136-145); UREA NITROGEN 24 mg/dL (7-18); eGFR NON AFRICAN AMERICAN 78 mL/min (90-120)
--- NOTE | 2016-11-18 08:00 | NUR ---
CLAMPED FRIEND CATHETER FOR BLADDER TRAINING
[2016-11-18 08:33] VITALS: BP 147/74
--- NOTE | 2016-11-18 10:27 | NUR ---
WOUND VAC DRESSING CHANGE WOUND TYPE:surgically debrided pressure injuries WOUND LOCATION:#1 coccyx #2 right coccyx WOUND AGE IN MONTHS: months/prior to debridement DEBRIDEMENT ATTEMPTED IN LAST 10 DAYS? DATE/TYPE: 11/10/16 surgical debridement SERIAL DEBRIDEMENTS REQUIRED? unknown MEASUREMENT DATE: 11/18/16 #1 3.5cm x 3.5cm x 2.7cm x 2.5cm from 9-3 oclock #2 1cm x 1cm x 0.1 cm (left open to air FULL THICKNESS? #1 yes MUSCLE, TENDON OR BONE EXPOSED? muscle (#1) UNDERMINING? yes see above measurements TUNNELING/SINUS? no APPEARANCE OF WOUND BED : red/pink/yellow EXUDATE (AMOUNT, COLOR, ODOR): small/serous/no odor FOAM TYPE: black # OF PIECES USED: 1 piece EDUCATION: pressure relief/staying off bottom. Pt voiced understanding.
[2016-11-18 11:55] VITALS: BP 149/62
--- NOTE | 2016-11-18 14:33 | NUR ---
NUTRITION MONITORING & EVAL CHART REVIEWED. PT REMAINS IN ISOLATION. TOLERATING ADA DIET. 50 TO 100% INTAKE RECENT MEALS. GLUCERNA BID. WILL CONTINUE TO PROVIDE DIET, GLUCERNA SHAKE. RD FOLLOWING
--- NOTE | 2016-11-18 16:25 | NUR ---
PATIENT URINATED AROUND CATHETER. D/C CATHETER. PATIENT VERBALIZED ANGER FOR GETTING CATHETER D/C. EXPLAINED TO PATIENT IT IS A PORTAL TO INFECTION. PATIENT STILL ANGERY. CLEANED PATIENT UP, CHANGED LINENS. AT BEDSIDE.
[2016-11-18 16:53] VITALS: BP 155/51
[2016-11-19] VITALS: BP 158/64
[2016-11-19 04:00] VITALS: BP 163/59
[2016-11-19 05:48] LABS: BASOPHILS 0 % (0.0-2.0); EOSINOPHILS 0 % (0-7); HEMATOCRIT 30.6 % (42.0-54.0); HEMOGLOBIN 9.5 g/dL (13.5-17.5); LYMPHOCYTES 6.8 % (15-50); MCH 28.1 pg (26.0-34.0); MCV 90.5 fL (80.0-100.0); MEAN PLATELET VOLUME 10.1 fL (7.4-10.4); MONOCYTES 4.6 % (2-11); NEUTROPHILS 86.6 % (40-80); PLATELET COUNT 192 10x3/uL (130-400); RBC 3.38 10x6/uL (4.20-6.10); RDW 17.8 % (11.5-14.5)
[2016-11-19 06:07] LABS: ALBUMIN 1.6 g/dL (3.4-5.0); ALKALINE PHOSPHATASE 123 U/L (46-116); BILIRUBIN - TOTAL 0.16 mg/dL (0.2-1.3); CALCIUM 8.5 mg/dL (8.5-10.1); CARBON DIOXIDE 28.5 mmol/L (21.0-32.0); CHLORIDE - SERUM 104 mmol/L (98-107); CREATININE - SERUM 0.9 mg/dL (0.6-1.3); POTASSIUM - SERUM 4.4 mmol/L (3.5-5.1); PROTEIN - SERUM 4.8 g/dL (6.4-8.2); SODIUM 138 mmol/L (136-145); UREA NITROGEN 21 mg/dL (7-18); eGFR NON AFRICAN AMERICAN 88 mL/min (90-120)
[2016-11-19 06:09] LABS: ALT (SGPT) 16 U/L (10-68); CALC OSMOLALITY 284 mosm/kg (275-300); GLUCOSE 204 mg/dL (74-106)
--- NOTE | 2016-11-19 08:00 | NUR ---
PT ASSESSMENT COMPLETE NO ACUTE DISTRESS NOTED VOICES ALL NEEDS TO STAFF ALL ADLS PER STAFF TOTAL CARE. DRESSING INTACT TO RIGHT STUMP CVL DRESSING CHANGED PER STERILE TECHNIQUE TO MIDLINE PICC. REMAINS ON 1ST STEP OVERLAY MATTRESS. WOUND VAC NOTED TO COCCYX 125 MMHG SUCTION NOTED. PT DENEIS PAIN THIS AM NO TEMP NOTED CHECKED PER THIS NURSE TEMP 97.1 WILL CONTINUE TO MONITOR.
[2016-11-19 08:04] VITALS: BP 177/70
--- NOTE | 2016-11-19 09:58 | NUR ---
PT CONTINUES TO REST IN BED AT BEDSIDE AT THIS TIME. NO ACUTE DISTRESS NOTED VOICES ALL NEEDS CALL LIGHT IN REACH SIDE RAILS UP X 2
[2016-11-19 11:43] VITALS: BP 154/77
--- NOTE | 2016-11-19 13:42 | NUR ---
PT RESTING WELL WITH EYES CLOSED EVEN AND UNLABORED RESPIRATIONS NOTED. REMAINS ON 1ST STEP OVERLAY.
[2016-11-19 16:56] VITALS: BP 178/76
--- NOTE | 2016-11-19 19:54 | NUR ---
ASSESSED, PT IS ASLEEP WITH LIGHTS DIM.
[2016-11-19 20:00] VITALS: BP 163/67
[2016-11-20 02:00] VITALS: BP 155/72
[2016-11-20 04:00] VITALS: BP 177/80
[2016-11-20 06:58] LABS: BASOPHILS 0.1 % (0.0-2.0); EOSINOPHILS 0 % (0-7); HEMATOCRIT 33.5 % (42.0-54.0); HEMOGLOBIN 10.3 g/dL (13.5-17.5); IMMATURE GRANULOCYTES 1.2 % (0-5); LYMPHOCYTES 4.7 % (15-50); MCH 28.1 pg (26.0-34.0); MCHC 30.7 g/dL (31.0-37.0); MCV 91.5 fL (80.0-100.0); MEAN PLATELET VOLUME 9.9 fL (7.4-10.4); MONOCYTES 3.7 % (2-11); NEUTROPHILS 90.3 % (40-80); PLATELET COUNT 198 10x3/uL (130-400); RBC 3.66 10x6/uL (4.20-6.10); RDW 17.8 % (11.5-14.5); WBC 8.1 10x3/uL (4.8-10.8)
[2016-11-20 07:15] LABS: ALBUMIN 1.9 g/dL (3.4-5.0); ALKALINE PHOSPHATASE 73 U/L (46-116); ALT (SGPT) 16 U/L (10-68); BILIRUBIN - TOTAL 0.27 mg/dL (0.2-1.3); CALC OSMOLALITY 285 mosm/kg (275-300); CALCIUM 9.1 mg/dL (8.5-10.1); CARBON DIOXIDE 31.1 mmol/L (21.0-32.0); CHLORIDE - SERUM 105 mmol/L (98-107); CREATININE - SERUM 0.9 mg/dL (0.6-1.3); GLUCOSE 180 mg/dL (74-106); POTASSIUM - SERUM 4.6 mmol/L (3.5-5.1); PROTEIN - SERUM 5.5 g/dL (6.4-8.2); SODIUM 140 mmol/L (136-145); UREA NITROGEN 19 mg/dL (7-18); eGFR NON AFRICAN AMERICAN 88 mL/min (90-120)
[2016-11-20 08:34] VITALS: BP 158/73
--- NOTE | 2016-11-20 11:33 | NUR ---
WOUND VAC DRESSING CHANGE WOUND TYPE: surgical debridement WOUND LOCATION: #1 coccyx #2 right coccyx WOUND AGE IN MONTHS: months/prior to debridement DEBRIDEMENT ATTEMPTED IN LAST 10 DAYS? DATE/TYPE:11/10/16 surgical debridement SERIAL DEBRIDEMENTS REQUIRED?unknown MEASUREMENT DATE: 11/20/16 #1 3.5cm x 3.5cm x 2.5cm x 2cm from 9-3 oclock #2 1cm x 0.5cm x 0.1cm FULL THICKNESS? #1 MUSCLE, TENDON OR BONE EXPOSED? #1 muscle UNDERMINING? yes TUNNELING/SINUS? no APPEARANCE OF WOUND BED : #1 red/yellow pink #2 pink/yellow EXUDATE (AMOUNT, COLOR, ODOR): small serous no odor FOAM TYPE: black # OF PIECES USED:2 pieces EDUCATION: pressure relief Wound on right AKA is improving. Red/beefy healing. Wound care will continue to monitor.
--- NOTE | 2016-11-20 11:59 | NUR ---
LYING IN BED,WITHOUT DISTRESS.CALL LIGHT IN REACH.FAMILY AT BEDSIDE
--- NOTE | 2016-11-20 13:01 | NUR ---
Nutrition Follow Up: Chart reviewed. Pt is eating 94% on ADA diet. +BM 11/16/16. No new wt to assess. Meds: Vit D, Humalog, Solu-Medrol, Zofran. Labs noted - Glucose continues elevated. Noted sacral ulcer with wound vac per chart. Rec continue current diet. Will continue to send Glucerna BID. Rec MV, Vit C, Zinc supplement daily. Will send Aaron BID to promote wound healing. RD following.
[2016-11-20] MEDS ORDERED: INVANZ 1 GM/NS 11 G1 IV (14:38)
[2016-11-20] MEDS ORDERED: CUBICIN500 MG IV (14:38)
[2016-11-20] MEDS ORDERED: MUCINEX600 MG PO (14:39)
[2016-11-20 16:48] VITALS: BP 167/79
--- NOTE | 2016-11-20 17:18 | NUR ---
Patient Name: SUGAR LIVE Encounter No: [id number] : 1945 Primary Insurance: MEDICARE A & B Anticipated DC Date: 11-13-2016 Planned Disposition: Fdc Facility External Planned Provider: : DCP follow-up note: INDIO spoke with "Jose" at [facility] ([phone]) and discharge orders faxed via [employer]. INDIO also spoke with "Laura" at [facility] ([phone]) and discharge orders faxed via [employer]. CM spoke with "Ekaterina" at [facility] ([phone]) who will contact patient's spouse and arrange a time to deliver DME equipment including hospital bed this afternoon prior to patient's discharge. Case management will follow and assist as needed. Roxie Saucedo RN/CM
--- NOTE | 2016-11-20 18:00 | NUR ---
PT ASSESSMENT COMPLETED THIS AM SEE FLOWSHEET WOUND VAC DRESSING CHANGED PER WOUND CARE NURSE THIS SHIFT PLANS FOR DISCHARGE TO HOME IN AM CM HAS HOME HEALTH CARE SET UP. DISCHARGE ORDERS ARE IN FOR AM. VOIDS TO URINAL PER SELF DRESSING CHANGED TO RIGHT AKA. CALL LIGHT IN REACH SIDE RAILS UP X 2
[2016-11-20 20:00] VITALS: BP 165/69
--- NOTE | 2016-11-20 20:00 | NUR ---
ASSESSMENT PER FLOWSHEET. IV PATENT RT ARM PICC OF NS AT 10CC'S/HR HEALTH DATA ADMINISTRATOR OF MORPHINE WITH SETTINGS AT 1MG Q10MIN W/10MG Q4HR L/O.WOUND VAC TO COCCYX AREA IN PLACE. DRESSING TO RT STUMP C/D/I. SCD TO LEFT LEG. PT ON FIRST STEP AIR BED. SR UP X3 CALL LIGHT WITHIN REACH. PT IS IN CONTACT ISOLATION FOR MRSA.
--- NOTE | 2016-11-20 22:00 | NUR ---
MEDS GIVEN PER DEC. ZVJW=906. 4 UNITS HUMALOG INSULIN GIVEN PER S/S TO RT ARM.
[2016-11-21] VITALS: BP 138/68
--- NOTE | 2016-11-21 | NUR ---
REPOSITIONED IN BED SR UP X3 CALL LIGHT WITHIN REACH.
[2016-11-21 01:00] LABS: APPEARANCE CLEAR (CLEAR); BILIRUBIN NEGATIVE (NEGATIVE); COLOR YELLOW (YELLOW); GLUCOSE NEGATIVE (NEGATIVE); KETONE NEGATIVE (NEGATIVE); LEUKOCYTE ESTERASE NEGATIVE (NEGATIVE); NITRITE NEGATIVE (NEGATIVE); PROTEIN NEGATIVE (NEGATIVE); SPECIFIC GRAVITY 1.015 (1.005-1.020); UROBILINOGEN NORMAL (NORMAL)
--- NOTE | 2016-11-21 02:00 | NUR ---
RESTING QUIETLY DENIES NEEDS.
--- NOTE | 2016-11-21 03:45 | NUR ---
AWAKE WATCHING TV.
[2016-11-21 04:00] VITALS: BP 155/81
--- NOTE | 2016-11-21 05:48 | NUR ---
EYES CLOSED RESPIRATIONS WITH EASE AND UNLABORED.
[2016-11-21 06:44] LABS: BASOPHILS 0.1 % (0.0-2.0); EOSINOPHILS 0.1 % (0-7); HEMATOCRIT 33.9 % (42.0-54.0); HEMOGLOBIN 10.4 g/dL (13.5-17.5); IMMATURE GRANULOCYTES 1.7 % (0-5); LYMPHOCYTES 8.2 % (15-50); MCH 28.4 pg (26.0-34.0); MCHC 30.7 g/dL (31.0-37.0); MCV 92.6 fL (80.0-100.0); MEAN PLATELET VOLUME 9.8 fL (7.4-10.4); MONOCYTES 5.1 % (2-11); NEUTROPHILS 84.8 % (40-80); PLATELET COUNT 194 10x3/uL (130-400); RBC 3.66 10x6/uL (4.20-6.10); RDW 17.8 % (11.5-14.5); WBC 7.1 10x3/uL (4.8-10.8)
[2016-11-21 07:08] LABS: ALKALINE PHOSPHATASE 79 U/L (46-116); ALT (SGPT) 17 U/L (10-68); CALC OSMOLALITY 281 mosm/kg (275-300); CALCIUM 8.8 mg/dL (8.5-10.1); CARBON DIOXIDE 31.6 mmol/L (21.0-32.0); CHLORIDE - SERUM 103 mmol/L (98-107); CREATININE - SERUM 0.9 mg/dL (0.6-1.3); GLUCOSE 134 mg/dL (74-106); POTASSIUM - SERUM 4.8 mmol/L (3.5-5.1); PROTEIN - SERUM 5.4 g/dL (6.4-8.2); SODIUM 138 mmol/L (136-145); UREA NITROGEN 25 mg/dL (7-18); eGFR NON AFRICAN AMERICAN 88 mL/min (90-120)
--- NOTE | 2016-11-21 08:00 | NUR ---
PT ASSESSMENT COMPLETE, NO COMPLAINTS OR DISTRESS NOTED. WOUND VAC IN PLACE AND SUCTIONING AT 125MM/HG, SAFETY MEASURES IN PLACE, CALL LIGHT IN REACH, REMAINS IN CONTACT ISOLATION, ALERT & ORIENTED, DENIES NEEDS AT THIS TIME, WILL CONTIUE PLAN OF CARE.
[2016-11-21 08:26] VITALS: BP 177/78
--- NOTE | 2016-11-21 10:15 | NUR ---
PT ALERT & ORIENTED, FRIEND CATHETER CARE PREFORMED FRIEND CARE WIPES, AT BEDSIDE, BANDAGE CHANGED TO RIGHT AKA PER ORDERS. PT REMAINS IN CONTACT ISOLATION. WILL CONTINUE WITH PLAN OF CARE.
[2016-11-21 11:52] VITALS: BP 154/70
[2016-11-21 14:33] VITALS: BP 163/78
--- NOTE | 2016-11-21 16:15 | NUR ---
DISCHARGE INSTRUCTIONS COMPLETED WITH PATIENT AND . VERBALIZED STEPS TO FLUSHING PICC LINE, EDUCATED ON KEEPING TOP OF SYRINGE STERILE AND PICC LINE LUMENS. AND PATIENT VERBALIZED UNDERSTANDING. DEMONSTRATED FLUSHING THE PICC LINE WITH 10ML OF SALINE, USING A PULSATING MOTION. OBSERVED AND VERBALIZED UNDERSTANDING. THEN RETURNED DEMONSTRATION FLUSHING THE OTHER LUMEN WITH 10ML OF SALINE. DEMONSTRATION CURRECT. DENIES QUESTIONS. EDUCATED AND PATIENT ON THE WOUND VAC. EXPLAINED THAT THE WOUND VAC IS A RENTAL AND WHERE TO FIND INFORMATION FOR RETURNING AND WHAT HAS TO BE RETURNED. SHOWED HOW TO FARM CONTRACTOR BUYER AND UNHOOK WOUND VAC TUBING. EXPLAINED THAT THE WOUND VAC MUST BE ON AT ALL TIMES, WITH EXCEPTION OF UNHOOKING FOR A MATTER OF SECONDS WHEN CHANGING CLOTHS. PATIENT VERBALIZED UNDERSTANDING. EXPLAINED HOW TO TELL IF THERE IS A LEAK IN THE DRESSING SEAL, AND TO APPLY THE CLEAR WOUND VAC DRESSING OVER LEAK IF IT OCCURS. VERBALIZED "I HAVE A WHOLE BUNCH OF THAT STUFF AT HOME, FROM WHEN HE WAS HERE BEFORE IT GATHERED UP ALL THE EXTRA, AND I TOOK IT HOME. I HAVE BEEN WATCHING SHANNAN EVERY WEEK CHANGING HIS DRESSING I KNOW HOW TO PUT THAT CLEAR DRESSING ON." MARIKA ATWOOD VERBALIZED THE STEPS FOR APPLYING THE CLEAR DRESSING. VERBALIZED UNDERSTANDING. PATIENT VERBALIZED STEPS FOR CHANGING WET TO DRY DRESSING ON PATIENT'S STUMP. ALL STEPS WERE VERBALIZED CURRECTLY. AND PATIENT DENY QUESTIONS. EXPLAINED TO THAT HOME HEALTH WILL CHANGE DRESSINGS, BUT WE ARE SENDING STUFF WITH PATIENT FOR CHANGING STUMP DRESSING TOMORROW IN CASE HOME HEALTH DOES NOT COME UNTIL WEDNESDAY. EXPLAINED TO FLUSH PICC LINE EVERY 8 HOURS, BEFORE AND AFTER MEDS. EXPLAINED THAT [employer] WILL BE SUPPLYING THE FLUSHES AND WE ARE SENDING 10 FLUSHES TO MAKE IT THROUGH TOMORROW.
--- NOTE | 2016-11-21 16:31 | NUR ---
CALLED [employer].
--- NOTE | 2016-11-21 18:45 | NUR ---
PATIENT LEFT VIA STRETCHER WITH [employer].
--- NOTE | 2016-11-21 21:18 | NUR ---
vLate Entry TC to [facility]. Patient was scheduled to be seen Wednesday AM. Primary nurse, Tierra, spoke with home health nurse regarding IV antibiotics. TC to [facility]. They were awaiting discharge to deliver patient's medications. TC to [facility] for assistance w/ proof of delivery form. Information provided. Home wound vac set up obtained and delivered to the unit. CM obtained the 's signature as the patient was receiving care from the nurse. Signed form faxed back to [facility] and to Materials management. Patient's advised that [facility] had contacted her this afternoon. CM spoke w/ the . Patient to be transported via ambulance. PCS form completed and given to primary nurse , Tierra. CM also requested the nurse to send dressing supplies for the stump wound care. Patient to receive all iv antibiotic dosages for the day prior to discharge. Primary nurse is aware. Drsg change had been completed.
[2016-12-18] MEDS ORDERED: HYDROCODONE-APA1 TAB PO (14:58)
--- NOTE | 2016-12-23 10:17 | OP ---
PATIENT NAME: SUGAR LIVE MEDICAL RECORD: [id number] :41 LOCATION:[id number] ADMISSION DATE:11/07/16 SURGEON: ESSIE WHITE MD DATE OF OPERATION: 11/10/2016 PREOPERATIVE DIAGNOSIS: Stage IV decubitus ulcer of the sacrum. 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 Please see the dimensions below. PROCEDURES: 1. Excisional debridement of infected stage IV decubitus ulcer of the sacrum with osteomyelitis. Dimensions of debridement, including margins, measures 3.9 in the cephalad caudad dimension, 3.2 cm in the medial lateral dimension, and 1.9 cm in depth. The debrided tissues included skin, subcutaneous tissue, ligamentous tissue as well as bone. I rongeured back a lot of particularly infected coccyx. 2. Placement of wound VAC. PROCEDURE IN DETAIL: The patient was conveyed to the operating room electively on 11/10/2016. General anesthesia was induced by the anesthesia staff. The patient was positioned prone. The debridement was carried out utilizing a scalpel, electrocautery as well as with a rongeur. This was sharp debridement. I debrided back to healthy bleeding tissue. Meticulous hemostasis was achieved with electrocautery. Cultures were obtained. I then irrigated the wound with hydrogen peroxide. I then plugged the wound VAC's black sponge and placed it in the wound. Cellophane-type dressings were applied over the wound VAC sponge and then I bridged this out on to the right buttock. I then cut a strip of black sponge and bridged this out on to the right buttock. A small defect was created in the sponge laterally. A wound VAC disc was applied. I attached the disc to suction. It held a good "raisin" indicating a good suction without any leakage. The patient was then extubated and was having some difficulty breathing in the recovery room. TRANSINT:[id number] Voice Confirmation ID: [id number] DOCUMENT ID: [id number] ESSIE WHITE MD at 1017 CC: [id number] DICTATION DATE: 11/10/16 1244 BARREL FILLER: 11/10/16 1328 DIS IN 11/21/16 [place] [id number]
--- NOTE | 2016-12-23 10:17 | CN ---
PATIENT NAME:SUGAR LIVE MEDICAL RECORD: [id number] : 41 LOCATION:[facility] [id number] ADMIT DATE: 11/07/16 ACCOUNT: [id number] CONSULTING PHYSICIAN: ESSIE WHITE MD REFERRING PHYSICIAN: ROLDAN SY M.D. DATE OF CONSULTATION: 11/09/2016 Addendum CHIEF COMPLAINT: None. Today, Mr. Live is confused. I discussed this case personally with Dr. Roldan Silverio. The patient has a right AKA with an open wound. He has got a stage IV sacral decubitus ulcer with some exudate as well as some necrotic material within the decubitus ulcer. I am going to plan to excise this in the operating room and place a wound VAC tomorrow. The risks, possible complications and alternatives to procedure were explained to the patient. He elects to proceed. Symptoms are of recent onset. Palpation aggravates. Nothing alleviates. Symptoms are nonradiating. This is a consultation note addendum. For the portion of the consult note, please see the chart. This would include the past medical and surgical history, current medications, social history as well as allergies. REVIEW OF SYSTEMS: Unreliable due to the patient's confusion. PHYSICAL EXAMINATION: GENERAL: The patient does appear acutely ill. Also appears chronically ill. VITAL SIGNS: Reviewed. HEAD: External ears appear normal. EYES: Extraocular movements are intact. NECK: Trachea is midline. CHEST: No intercostal retractions. PULMONARY: Nonlabored, no stridor. ABDOMEN: Nontender. EXTREMITIES: No peripheral cyanosis. INTEGUMENT: Ulceration as described above. PSYCHIATRIC: Anxious affect. NEUROLOGIC: The patient is confused. BACK: No thoracic kyphosis. LYMPHATICS: No lymphangitic streaking of the exposed extremities. IMPRESSION: Necrosis within a stage IV decubitus ulcer of the sacrum. PLAN: Will be excisional debridement in the operating room with placement of a wound VAC. TRANSINT:[id number] Voice Confirmation ID: [id number] DOCUMENT ID: [id number] CONSULT REPORT [id number] MARIA TSUGAR MONTOYA ESSIE CLAY MD at 1017 CC: [id number] DICTATION DATE: 11/09/16 1318 HOTEL CASINO FLOORPERSON: 11/09/16 1501 DIS IN 11/21/16 [facility] [address] [facility] [place] [address]
== END 2016-11-21 18:59 | disposition home health service (06) | DRG 853 ==
LOC: D.ER 12:48 → D.MS 15:40
PROVIDERS: Emergency Medicine; Family Medicine; Student in an Organized Health Care Education/Training Program; ADMIT Family Medicine
DX: A41.51 Sepsis due to Escherichia coli [E. coli] (principal); L89.154 Pressure ulcer of sacral region, stage 4; J15.9 Unspecified bacterial pneumonia; R53.2 Functional quadriplegia; M46.28 Osteomyelitis of vertebra, sacral and sacrococcygeal region; N39.0 Urinary tract infection, site not specified; M86.9 Osteomyelitis, unspecified; E87.6 Hypokalemia; D63.8 Anemia in other chronic diseases classified elsewhere; E11.22 Type 2 diabetes mellitus with diabetic chronic kidney disease; I12.9 Hypertensive chronic kidney disease with stage 1 through stage 4 chronic kidney disease, or unspecified chronic kidney disease; N18.3 Chronic kidney disease, stage 3 (moderate); E11.40 Type 2 diabetes mellitus with diabetic neuropathy, unspecified; Z89.611 Acquired absence of right leg above knee; I25.10 Atherosclerotic heart disease of native coronary artery without angina pectoris; F03.90 Unspecified dementia, unspecified severity, without behavioral disturbance, psychotic disturbance, mood disturbance, and anxiety; N40.0 Benign prostatic hyperplasia without lower urinary tract symptoms

== ENCOUNTER 2016-12-04 17:33 | Emergency (ER) | payer MEDICARE, OTHER ==
[2016-11-10 14:11] VITALS: BMI 28.3
[~2016-12-04 17:33] MED LIST changes: +INVANZ 1 GM/NS 11 G1 IV; +MUCINEX600 MG PO
[2016-12-18] MEDS ORDERED: HYDROCODONE-APA1 TAB PO (14:58)
== END 2016-12-04 18:42 | disposition home or self-care (01) ==
LOC: D.ER 17:33
DX: T85.698A Other mechanical complication of other specified internal prosthetic devices, implants and grafts, initial encounter (principal); E87.6 Hypokalemia; E11.9 Type 2 diabetes mellitus without complications; N18.3 Chronic kidney disease, stage 3 (moderate)

== ENCOUNTER → 2016-12-18 13:19 | Outpatient (CLI) | payer MEDICARE, OTHER ==
[~2016-12-18] VITALS: Ht 182.9 cm; Wt 94.1 kg
[~2016-12-18 13:19] MED LIST changes: +ATIVAN0.5 MG PO; +COZAAR100 MG PO; +LASIX40 MG PO; +MACROBID100 MG PO; +PROAIR HFA8.5 GM INH; +ZOLOFT50 MG PO
[2016-12-18 15:07] VITALS: BP 172/65; Ht 182.9 cm; Wt 94.1 kg
--- NOTE | 2016-12-18 16:51 | NUR ---
1540 PROCEDURE DONE BY JHONNY HSIEH RN, NO PROBLEMS NOTED, INTACT, TO CALL FOR LIFTING HELP TO GET PATIENT IN WHEELCHAIR. 1550 PATIENT DISCHARGED HOME WITH INSTRUCTIONS TO CALL IF ANY PROBLEMS
== END | disposition home or self-care (01) ==
LOC: D.OPS 13:19
DX: M86.9 Osteomyelitis, unspecified (principal)

== ENCOUNTER 2017-01-03 14:58 | Inpatient (IN) | payer MEDICARE, OTHER ==
[~2017-01-03] VITALS: Ht 182.9 cm; Wt 121.6 kg
[~2017-01-03 14:58] MED LIST changes: -ATIVAN0.5 MG PO; -COZAAR100 MG PO; -LASIX40 MG PO; -MACROBID100 MG PO; -PROAIR HFA8.5 GM INH; -ZOLOFT50 MG PO
[2017-01-03 16:01] LABS: BASOPHILS 0.7 % (0.0-2.0); EOSINOPHILS 2.3 % (0-7); HEMATOCRIT 32.8 % (42.0-54.0); HEMOGLOBIN 10.4 g/dL (13.5-17.5); IMMATURE GRANULOCYTES 0.7 % (0-5); MCH 27.4 pg (26.0-34.0); MCHC 31.7 g/dL (31.0-37.0); MCV 86.5 fL (80.0-100.0); MEAN PLATELET VOLUME 9.8 fL (7.4-10.4); MONOCYTES 7.8 % (2-11); NEUTROPHILS 70.5 % (40-80); RBC 3.79 10x6/uL (4.20-6.10); RDW 14.1 % (11.5-14.5); WBC 6.8 10x3/uL (4.8-10.8)
[2017-01-03 16:02] LABS: PLATELET COUNT 333 10x3/uL (130-400)
[2017-01-03 16:04] LABS: APPEARANCE CLEAR (CLEAR); BILIRUBIN NEGATIVE (NEGATIVE); COLOR YELLOW (YELLOW); GLUCOSE NEGATIVE (NEGATIVE); KETONE NEGATIVE (NEGATIVE); LEUKOCYTE ESTERASE NEGATIVE (NEGATIVE); NITRITE NEGATIVE (NEGATIVE); PROTEIN TRACE mg/dL (NEGATIVE); SPECIFIC GRAVITY 1.015 (1.005-1.020); UROBILINOGEN NORMAL (NORMAL)
[2017-01-03 16:25] LABS: ALBUMIN 2.5 g/dL (3.4-5.0); ANION GAP 11.1 mmol/L (8-16); BILIRUBIN - TOTAL 0.23 mg/dL (0.2-1.3); CALCIUM 9.3 mg/dL (8.5-10.1); CREATININE - SERUM 1.3 mg/dL (0.6-1.3); POTASSIUM - SERUM 4.1 mmol/L (3.5-5.1); PROTEIN - SERUM 7.3 g/dL (6.4-8.2)
[2017-01-03 16:59] LABS: AMYLASE - SERUM 56 U/L (25-115); CREATINE KINASE 92 UL (21-232); LIPASE 158 U/L (73-393); PRO BNP 98 pg/mL (0-125); THYROID STIMULATING HORMONE 1.71 uIU/mL (0.36-3.74)
[2017-01-03 17:06] LABS: TROPONIN-I < 0.017 ng/mL (0.000-0.060)
[2017-01-03] MEDS ORDERED: ZOFRAN4 MG PO (22:55)
[2017-01-03] MEDS ORDERED: ATIVAN0.5 MG PO (22:57)
[2017-01-03] MEDS ORDERED: COZAAR100 MG PO (22:58)
[2017-01-03] MEDS ORDERED: PLAVIX75 MG PO (22:59)
[2017-01-03] MEDS ORDERED: ZOLOFT50 MG PO (23:00)
[2017-01-03] MEDS ORDERED: LASIX40 MG PO (23:01)
[2017-01-03] MEDS ORDERED: MACROBID100 MG PO (23:02)
[2017-01-03] MEDS ORDERED: MUCINEX600 MG PO (23:08)
[2017-01-03] MEDS ORDERED: PROAIR HFA8.5 GM INH ×2 (23:09→23:10)
--- NOTE | 2017-01-04 00:01 | NUR ---
RT AT [facility] FOR UPDRAFT.
--- NOTE | 2017-01-04 00:13 | NUR ---
HS MEDS GIVEN WITH SIP OF PTS DR CARVAJAL. DANITZA 1 TAB GIVEN FOR C/O PAINTO RIGHT STUMP. SON AT BED SIDE.
[2017-01-04 00:27] VITALS: BP 157/62; BMI 28.4
--- NOTE | 2017-01-04 03:25 | NUR ---
TABLE COVER FOLDER AT BEDSIDE FOR VS. NEEDS ADDRESSED, CALL LIGHT IN REACH. WILL CONT TO MONITOR.
[2017-01-04 03:49] VITALS: BP 138/69
--- NOTE | 2017-01-04 05:38 | NUR ---
PT INCONTINENT OF URINE, PT CLEANED AND LINEN CHANGE COMPELTE.
[2017-01-04 08:17] VITALS: BP 148/74
--- NOTE | 2017-01-04 09:18 | NUR ---
IV PATENT. WOUND VAC INTACT. BED ALRM ON. CALL LIGHT IN REACH. WILL CONT. PLAN OF CARE.
--- NOTE | 2017-01-04 11:58 | NUR ---
WOUND CARE CONSULT/VAC CHANGE PT HAS WOUND VAC TO COCCYX WOUND WHICH IS A SURGICALLY DEBRIDED STAGE 3 PRESSURE INJURY. IT MEASURES 4CM X 3CM X 3CM. REMOVED OLD DRESSING AND APPLIED NEW ONE USING BLACK FOAM AND -125MMHG MODERATE CONTINUOUS PRESSURE. PTS ENTIRE BUTTOCKS ARE RED - SLOWLY BLANCHABLE. HE HAS HABIT OF STAYING ON HIS BOTTOM AND NOT TURNING OR STAYING TURNED. HE IS INCONTINENT. HE IS CONFUSED. PT ALSO HAS AN OPEN WOUND ON RIGHT STUMP (AKA) - HE HAD SURGERY SEVERAL MONTHS AGO. WOUND WAS NEARLY HEALED BUT PT FELL AT HOME X2 IN THE PAST WEEK AND THE WOUND HAS REOPENED. IT MEASURES 5CM X 5CM AND BONE CAN BE PROBED. CLEANSED AND COVERED WITH 4X4S / ABD PAD AND SECURED WITH MEDIPORE TAPE. WOUND CARE WILL CONTINUE TO MONITOR. PT TOLERATED WELL.
[2017-01-04 12:31] VITALS: BP 139/62
[2017-01-04 13:43] VITALS: Ht 182.9 cm; Wt 121.6 kg
[2017-01-04 15:55] VITALS: BP 108/88
--- NOTE | 2017-01-04 19:15 | NUR ---
INITIAL ROUNDS MADE. PT LYING IN BED WATCHING TV WITH FAMILY IN ROOM. PT CONFUSED AT THIS TIME. BED ALARM ON. SCD TO LEFT LEG. MIDLINE IV TO LEFT ARM PATENT. CALL LIGHT IN REACH. WILL CONT TO MONITOR.
[2017-01-04 20:00] VITALS: BP 146/63
--- NOTE | 2017-01-04 20:10 | NUR ---
COMES OUT OF ROOM VERY UPSET. STATES "I'M LEAVING, GOING HOME. WAS GOING TO STAY WITH HIM TONIGHT BUT I AM NOT GOING TO SIT THERE AND LISTEN TO HIM TALK TO ME LIKE THAT. HE IS IN THERE CUSSING AT ME AND I CAN'T TAKE IT".
[2017-01-05] VITALS: BP 188/61
--- NOTE | 2017-01-05 00:26 | NUR ---
CROSSBAR FRAME WIRER AT BEDSIDE FOR VS, NEEDS ADDRESSED. CALL LIGHT IN REACH. WILL CONT TO MONITOR.
[2017-01-05 04:00] VITALS: BP 158/59
[2017-01-05 05:55] LABS: BASOPHILS 0.5 % (0.0-2.0); EOSINOPHILS 2.5 % (0-7); HEMATOCRIT 29.2 % (42.0-54.0); HEMOGLOBIN 8.9 g/dL (13.5-17.5); IMMATURE GRANULOCYTES 0.5 % (0-5); LYMPHOCYTES 15.3 % (15-50); MCH 26.7 pg (26.0-34.0); MCHC 30.5 g/dL (31.0-37.0); MCV 87.7 fL (80.0-100.0); MEAN PLATELET VOLUME 9.5 fL (7.4-10.4); MONOCYTES 8.6 % (2-11); NEUTROPHILS 72.6 % (40-80); PLATELET COUNT 289 10x3/uL (130-400); RBC 3.33 10x6/uL (4.20-6.10); RDW 14.4 % (11.5-14.5); WBC 5.6 10x3/uL (4.8-10.8)
[2017-01-05 06:19] LABS: ANION GAP 9.8 mmol/L (8-16); CALCIUM 8.9 mg/dL (8.5-10.1); CARBON DIOXIDE 30.4 mmol/L (21.0-32.0); CREATININE - SERUM 1.4 mg/dL (0.6-1.3)
[2017-01-05 06:20] LABS: POTASSIUM - SERUM 3.2 mmol/L (3.5-5.1)
[2017-01-05 08:08] VITALS: BP 111/91
--- NOTE | 2017-01-05 09:42 | NUR ---
SPEECH THERAPY AT FOR NIC KIRBY WILL MONITOR.
--- NOTE | 2017-01-05 10:15 | NUR ---
DRSG CHANGED TO RIGHT STUMP.
[2017-01-05 12:03] VITALS: BP 125/61
--- NOTE | 2017-01-05 14:01 | NUR ---
PT AT [facility]. DANITZA GIVEN FOR BACK PAIN. WILL CONT. PLAN OF CARE.
--- NOTE | 2017-01-05 15:23 | HP ---
PATIENT: SUGAR LIVE MEDICAL RECORD: [id number] ACCOUNT: [id number] LOCATION:[facility] D[facility]2117 : 43 ADMISSION DATE: 01/03/17 HISTORY AND PHYSICAL EXAMINATION HISTORY OF PRESENT ILLNESS: Mr. Live is a 71-year-old white male, patient of Dr. He with multiple ongoing problems, had a recent right above-knee amputation and has required wound VAC and extensive rehabilitation. He has been at home since late October. The wound VAC had already been removed. Now, he started getting some confusion a few days ago, has fallen a couple times at home. He comes to the Emergency Room where he was found to have pneumonia. He is admitted for further treatment. PAST MEDICAL HISTORY: Significant for known hypertension, gout, diabetes, coronary artery disease, PAD, peripheral vascular disease, cardiac arrhythmia, stage IV decubitus on sacrum, chronic kidney disease, anemia of chronic disease, COPD, history of sacral osteomyelitis, multiple infections. PAST SURGICAL HISTORY: Include recent right AKA, angioplasty/stents, gallbladder surgery, T&A, several shoulder surgeries. ALLERGIES: IODINE CONTRAST MEDIA AND IODINE. HOME MEDICATIONS: Include amiodarone 200 mg a day, clonidine TTS patch weekly, pantoprazole 40 mg b.i.d., Zofran p.r.n., lorazepam 0.5 q.6, losartan 100 mg daily, clopidogrel 75 daily, sertraline 50 mg a day, furosemide 40 mg a day, nitrofurantoin, guaifenesin, albuterol ProAir inhaler, fenofibrate 145 daily, hydralazine 25 t.i.d., terazosin 5 mg a day, Iraan 10 p.r.n., Lyrica 75 t.i.d., Lactinex, vitamin C, vitamin D, pravastatin 40 daily, and Cymbalta 60 at bedtime. He has also been on [facility]. FAMILY HISTORY: Significant for cardiovascular disease. SOCIAL HISTORY: The patient is . Former smoker. REVIEW OF SYSTEMS: His provides most of that, he is a little bit confused today and rambling in his speech, but she reports recent increasing confusion, some cough, not really had any fever at home. No recent change in bladder or bowel. PHYSICAL EXAMINATION: VITAL SIGNS: Temperature 98.1, pulse 87, respirations 18, BP 139/62, pulse ox is 95% on 2 liters. HEENT: Head is normocephalic, sclerae nonicteric. NECK: Soft and supple. HEART: Regular. LUNGS: Clear. ABDOMEN: Soft. EXTREMITIES: Right stump with dressing on the of it. He has got a wound VAC to the sacrum.. IMPRESSION: 1. Pneumonia. 2. Peripheral vascular disease status post recent right above-knee amputation with wound dehiscence, generalized weakness, hypertension, decubitus, gout, HISTORY AND PHYSICAL [id number] SUGAR LIVE chronic renal disease, chronic anemia, diabetes. PLAN: Admit, IV antibiotics, cultures. See orders for plan. TRANSINT:[id number] Voice Confirmation ID: [id number] DOCUMENT ID: [id number] MAYO MELARA DO at 1523 CC: [id number] DICTATION DATE: 01/04/17 1636 MODERN DANCER: 01/04/172031 ADM IN [place] [id number] [place] [address]
[2017-01-05 16:34] VITALS: BP 169/79; BP 90/55
--- NOTE | 2017-01-05 19:15 | NUR ---
INITIAL ROUNDS MADE. PT CONFUSED, TRYING TO CLIMB OUT OF BED. ATTEMPTS TO REORIENT ARE UNSUCCESSFUL. BED ALARM ON. CALL LIGHT IN REACH.CONT TO MONITOR.
--- NOTE | 2017-01-05 20:30 | NUR ---
PT INCONT STOOL. SECOND BM THIS SHIFT. PT CLEANED AND LINENS CHANGED.
[2017-01-05 21:03] VITALS: BP 161/63
--- NOTE | 2017-01-05 22:30 | NUR ---
PT INCONT STOOL AGAIN, CLEANED AND LINENS CHANGED. DRSG TO RIGHT AKA CHANGED WELL WET TO DRY DRSG ON BUTTOCK. BED ALARM ON. PT REMAINS CONFUSED.
--- NOTE | 2017-01-05 22:40 | NUR ---
PT BED ALARM GOING OFF. KITCHEN STEWARD/STEWARDESS GETS TO DOOR, PT CLIMBING OUT OF BED AND SLIPS TO FLOOR. NOTIFIED.
--- NOTE | 2017-01-05 23:05 | NUR ---
DR MELARA/HEIDI PAGED TO NOTIFY OF FALL.
--- NOTE | 2017-01-05 23:20 | NUR ---
HERE AT BEDSIDE. PT BELIGERANT AND AGITATED.
--- NOTE | 2017-01-05 23:22 | NUR ---
ATIVAN 0.5MG GIVEN IV ORDERED ONE TIME DOSE BY HEIDI HOLGUIN
--- NOTE | 2017-01-06 01:30 | NUR ---
PT RESTING WELL WITH EYES CLOSED. LEAVING. PT'S BED ALARM ON.
--- NOTE | 2017-01-06 03:55 | NUR ---
LEDGER CLERK AT BEDSIDE FOR VS. NEEDS ADDRESSED, CALL LIGHT IN REACH. CONT TO MONITOR.
--- NOTE | 2017-01-06 03:59 | NUR ---
MIDLINE IV TO LEFT UPPER ARM APPEARS TO BE LEAKING. PT'S GOWN SLEEVE AND SHEET WET. STOPPING IVF AT THIS TIME UNTIL PLACEMENT VERIFIED.
[2017-01-06 05:39] LABS: BASOPHILS 0.6 % (0.0-2.0); EOSINOPHILS 3.7 % (0-7); HEMATOCRIT 30.5 % (42.0-54.0); HEMOGLOBIN 9.4 g/dL (13.5-17.5); IMMATURE GRANULOCYTES 0.6 % (0-5); LYMPHOCYTES 19.1 % (15-50); MCH 27.1 pg (26.0-34.0); MCHC 30.8 g/dL (31.0-37.0); MCV 87.9 fL (80.0-100.0); MEAN PLATELET VOLUME 9.6 fL (7.4-10.4); MONOCYTES 9.3 % (2-11); NEUTROPHILS 66.7 % (40-80); PLATELET COUNT 297 10x3/uL (130-400); RBC 3.47 10x6/uL (4.20-6.10); RDW 14.5 % (11.5-14.5); WBC 5.1 10x3/uL (4.8-10.8)
[2017-01-06 05:47] LABS: C-REACTIVE PROTEIN 9.7 mg/dL (0.0-0.9); CALCIUM 9.2 mg/dL (8.5-10.1); CHLORIDE - SERUM 108 mmol/L (98-107); GLUCOSE 89 mg/dL (74-106); POTASSIUM - SERUM 3.3 mmol/L (3.5-5.1); SODIUM 144 mmol/L (136-145); eGFR NON AFRICAN AMERICAN 78 mL/min (90-120)
[2017-01-06 05:49] LABS: CALC OSMOLALITY 284 mosm/kg (275-300); UREA NITROGEN 11 mg/dL (7-18)
[2017-01-06 06:00] VITALS: BP 160/73
[2017-01-06 07:06] LABS: ERYTHROCYTE SEDIMENTATION RATE 97 mm/hr (0-20)
[2017-01-06 08:05] VITALS: BP 163/59
[2017-01-06 12:07] VITALS: BP 157/62
--- NOTE | 2017-01-06 14:24 | NUR ---
Nutrition follow-up: Diet: ADA consistent CHO PO intake ~60% average of meals at this time. Labs reviewed +BM Wt: 204# Fell out of bed last evening. RDN will order Glucerna Shake with meals to increase kcal/protein intake. RDN following.
--- NOTE | 2017-01-06 14:25 | NUR ---
IV ACCESS-22 GAUGE INSERTED IN LEFT WRIST AREA FOR SALINE. JHONNY HSIEH RN
--- NOTE | 2017-01-06 14:35 | NUR ---
PATIENT IS CONFUSED.HE THINKS HE IS ON SOME TYPE MACHINE AND WANTS OFF. I DO NOT SEE ANY MACHINE. PATIENT IS CONFUSE AND UNABLE TO ANSWER QUESTIONS ABOUT DISCHARGE PLANNING. NO FAMILY IS PRESENT TO INTERVIEW.
[2017-01-06 16:00] VITALS: BP 117/69
--- NOTE | 2017-01-06 19:50 | NUR ---
Received report on patient from MED 2 nurse that I would be receiving patient into room 1918.
[2017-01-06 20:00] VITALS: BP 166/65
--- NOTE | 2017-01-06 22:05 | NUR ---
Received patient into room 2106 at this time via bed accompanied by and two dust brush assembler. Patient is on oxygen @2L/min, air hammer operator on, rhythm SR, bed alarm set to on, NS infusing @75ml/min, right AKA dressing clean, dry and intact. Somewhat confused and CHILKAT. Settled into room, has not been given his HS medications, will do so now.
--- NOTE | 2017-01-06 23:10 | NUR ---
Receiving bed bath by two marine fireman to help promote relaxation and sleep. Has been given routine dose of Lyrica for pain relief.
[2017-01-07] VITALS: BP 163/58
--- NOTE | 2017-01-07 01:15 | NUR ---
has left, patient in bed with eyes colsed, respirations easy and regular, deemed to be sleeping.
--- NOTE | 2017-01-07 02:55 | NUR ---
Reported by AUTO DAMAGE ADJUSTER that patient had slid out of bed between upper and lower side rail, landing on his buttocks, no injuries noted. English Faculty Member, Lori notified. Patient is very confused, waving hands in the air picking at unseen objects, slurring words, other times words clear asking for persons not there. Bed alarm had sounded but staff could not get to patient in time. Will notify in am.
--- NOTE | 2017-01-07 03:33 | NUR ---
Given Leedey tab for generalized pain, unable to state level of severity, will monitor for effectiveness. Continues to try to crawl out of bed, swinging his leg over side rails. Staff frequently in room assisting patient to stay in bed and repositioning him.
[2017-01-07 05:36] LABS: ANION GAP 11.2 mmol/L (8-16); CALCIUM 8.7 mg/dL (8.5-10.1); CARBON DIOXIDE 25.2 mmol/L (21.0-32.0); CREATININE - SERUM 1.1 mg/dL (0.6-1.3); POTASSIUM - SERUM 3.4 mmol/L (3.5-5.1)
[2017-01-07 05:49] LABS: BASOPHILS 0.8 % (0.0-2.0); HEMATOCRIT 29.6 % (42.0-54.0); HEMOGLOBIN 9.2 g/dL (13.5-17.5); IMMATURE GRANULOCYTES 0.6 % (0-5); MCH 27.1 pg (26.0-34.0); MCHC 31.1 g/dL (31.0-37.0); MCV 87.3 fL (80.0-100.0); MEAN PLATELET VOLUME 9.5 fL (7.4-10.4); MONOCYTES 7.6 % (2-11); PLATELET COUNT 305 10x3/uL (130-400); RBC 3.39 10x6/uL (4.20-6.10); RDW 14.5 % (11.5-14.5)
--- NOTE | 2017-01-07 06:25 | NUR ---
Given potassium supplement per protocol for K+ = 3.4
--- NOTE | 2017-01-07 08:08 | NUR ---
0740-PATIENT IS IN CONTACT ISOLATION, TRYING TO CLIMB OUT OF BED. ON 1ST STEP OVERLAY MATTRESS. ON EP, POTASSIUM WAS COVERED AND WILL BE REDRAWN. LEFT HAND WITH NS INFUSING AT 75. ON 2L PER NC. OLD RIGHT AKA. WILL CONTINUE TO MONITOR. BED ALARM IS SET.
--- NOTE | 2017-01-07 08:14 | NUR ---
Notified patient's , Nichole of patient's fall out of bed, made aware that no injuries were noted and of patient's confusion.
--- NOTE | 2017-01-07 08:32 | NUR ---
Attempted to page MARIA C Shipman regarding events of last night, patient's confusion, patient's hallucinating and patient's fall incident. Per answering service, will need to call back after 0845.
[2017-01-07 08:45] VITALS: BP 171/67
[2017-01-07 12:38] VITALS: BP 182/72
[2017-01-07 16:07] VITALS: BP 166/64
[2017-01-07 20:00] VITALS: BP 190/69
--- NOTE | 2017-01-07 20:48 | NUR ---
PT FELL ONTO FLOOR. PT IS CONFUSED AND STUBBORN AND DOESNT FOLLOW DIRECTIONS. PT DOESNT HAVE ANY NEW SKIN BREAKDOWN AND DENIES ANY PAIN. PT FELL STRAIGHT ON HIS BOTTOM. CALLED AND SHE IS AWARE AND REQUESTING US RESTRAIN HIM. SHE APPARENTLY STAYED LAST NIGHT AND IS EXHAUSTED AND CANT STAY WITH HIM /. PT IS IN MY LINE OF VISION FROM NURSES STATION AND ALL FALL PRECAUTIONS ARE IN PLACE HOWEVER WITHOUT RESTRAINTS WE CANT KEEP PT IN BED. CALLED READING COACH MARIA C GORDON AND REC'D VERBAL ORDERS FOR RAMILA BED R/T PT HAVING MULTIPLE FALLS WITHIN THE PAST COUPLE OF DAYS. WILL NOW CONTINUE WITH ORDER.
--- NOTE | 2017-01-07 22:00 | NUR ---
TRANSFERRED PT INTO RAMILA BED AND EXPLAINED REASONING. PT PLEASANTLY CONFUSED AND STATES "OKAY I WANT TO BE SAFE AND NOT FALL OOB" WILL CONTINUE WITH ALL PROTOCOL ORDERS AND Q2H DOCUMENTATION AND VITALS CHECK.
[2017-01-08] VITALS: BP 151/71
--- NOTE | 2017-01-08 03:42 | NUR ---
INITIATED PTS IVPB ZOSYN ORDERED. CHANGED OUT IV FLUIDS OF NS INFUSING @75ML/HR AND ADJUSTED TIMES R/T BAG JUST NOW FINISHING. PT IS RESTING QUIETLY IN RAMILA BED WITH EYES CLOSED AND SNORING. RR NONLABORED ON RA. CL IN REACH, BED IN LOWEST. WILL CPOC.
[2017-01-08 04:00] VITALS: BP 160/93
[2017-01-08 05:45] LABS: BASOPHILS 0.9 % (0.0-2.0); EOSINOPHILS 2.3 % (0-7); HEMATOCRIT 28.3 % (42.0-54.0); HEMOGLOBIN 8.8 g/dL (13.5-17.5); IMMATURE GRANULOCYTES 0.9 % (0-5); LYMPHOCYTES 26.4 % (15-50); MCH 26.9 pg (26.0-34.0); MCHC 31.1 g/dL (31.0-37.0); MCV 86.5 fL (80.0-100.0); MEAN PLATELET VOLUME 9.6 fL (7.4-10.4); NEUTROPHILS 61.5 % (40-80); PLATELET COUNT 279 10x3/uL (130-400); RBC 3.27 10x6/uL (4.20-6.10); RDW 14.4 % (11.5-14.5); WBC 4.4 10x3/uL (4.8-10.8)
[2017-01-08 05:52] LABS: ANION GAP 11.4 mmol/L (8-16); CALCIUM 8.8 mg/dL (8.5-10.1); CARBON DIOXIDE 25.7 mmol/L (21.0-32.0); CREATININE - SERUM 1.1 mg/dL (0.6-1.3); POTASSIUM - SERUM 3.1 mmol/L (3.5-5.1)
--- NOTE | 2017-01-08 06:45 | NUR ---
POTASSIUM PLACED PER ELECTROLYTE PROTOCOL. PT DRANK LIQUID MIXED WITH OJ. PT REQUESTING AND WAS PROVIDED WITH PRN NORCO FOR PAIN WELL. PT SOILED ALL LINENS WITH URINE AND BEDDING WAS CHANGED. PT NOW RESTING AND IS CLEAN AND DRY NOW DENIES ANY FURTHER NEEDS AT THIS TIME. CL IN REACH, BED IN LOWEST, CLOSURE BED ZIPPED. WILL CPOC.
[2017-01-08 08:56] VITALS: BP 172/69
[2017-01-08 12:00] VITALS: BP 173/63
[2017-01-08 17:41] VITALS: BP 153/60
[2017-01-08 20:00] VITALS: BP 119/77
[2017-01-09] VITALS (7 sets, daily range): BP systolic 114–202; BP diastolic 70–155
--- NOTE | 2017-01-09 06:06 | NUR ---
PT IS MORE ALERT AND ORIENTED THIS AM. PT DID USE HIS URINAL AND ANSWERS APPROPRIATELY. PT SLEPT WELL, DENIES ANY ACUTE NEEDS. CONTINUE TO MONITOR CLOSELY. ENCLOSURE BED OPEN TO THE LEFT SIDE. PT HAS DIET COKE FROM HOME AT THIS TIME. BED LOW, CALL LIGHT IN REACH, HOB 20 DEGREES.
[2017-01-09 06:29] LABS: BASOPHILS 1.5 % (0.0-2.0); EOSINOPHILS 5.3 % (0-7); HEMATOCRIT 28.5 % (42.0-54.0); HEMOGLOBIN 8.8 g/dL (13.5-17.5); LYMPHOCYTES 30.2 % (15-50); MCH 27.2 pg (26.0-34.0); MCHC 30.9 g/dL (31.0-37.0); MCV 88.2 fL (80.0-100.0); MEAN PLATELET VOLUME 9.3 fL (7.4-10.4); MONOCYTES 9.1 % (2-11); NEUTROPHILS 51.9 % (40-80); PLATELET COUNT 265 10x3/uL (130-400); RBC 3.23 10x6/uL (4.20-6.10); RDW 14.8 % (11.5-14.5)
[2017-01-09 06:54] LABS: ANION GAP 11.7 mmol/L (8-16); CALCIUM 8.6 mg/dL (8.5-10.1); CARBON DIOXIDE 24.9 mmol/L (21.0-32.0); CREATININE - SERUM 1.1 mg/dL (0.6-1.3)
[2017-01-09 06:55] LABS: POTASSIUM - SERUM 3.6 mmol/L (3.5-5.1)
--- NOTE | 2017-01-09 07:00 | NUR ---
RECEIVED REPORT. ASSUMED CARE OF PATIENT. RAMILA BED PATENT. RESP EVEN AND UNLABORED. PATIENT WITH EYES CLOSED, RESTING PEACEFULLY AT THIS TIME. IV FLUIDS INFUSING ORDERED. NO DISTRESS.
--- NOTE | 2017-01-09 09:10 | NUR ---
DRESSING PLACED TO SACRAL WOUND. WOUND FOUND WITH NO DRESSING, NO WOUND VAC. PATIENT ALERT/ORIENTED BUT COULD NOT TELL THIS LICENSED FINAL EXPENSE AGENTS EXACT DRESSING TO BE APPLIED AND LAST NOTE FROM WOUND CARE REFERENCES WOUND VAC. WOUND CLEANSED AND COVERED WITH DRY DRESSING. PATIENT IS ALERT/ORIENTED AT THIS TIME. PATIENT MAKING THREATS OF KICKING AND TEARING DOWN RAMILA BED IF AT LEAST ONE SIDE IS NOT LEFT OPEN HE FEELS TO ENCLOSED. NURSE CLEANING MATRON MADE AWARE AT THIS TIME.
--- NOTE | 2017-01-09 10:20 | NUR ---
MEDICATED FOR PAIN AT THIS TIME.
--- NOTE | 2017-01-09 11:31 | NUR ---
SCARFER CALLED REQUESTING 1ST STEP OVERLAY FOR PATIENT HE WAS TAKEN OFF OF HIS BED YESTERDAY FOR WOUND MANAGEMENT WHEN PLACED IN RAMILA BED. SCARFER TO BRING UP 1ST STEP OVERLAY.
--- NOTE | 2017-01-09 14:05 | NUR ---
1ST STEP OVERLAY PLACED TO PATIENTS RAMILA ENCLOSURE BED AT THIS TIME. TOLERATED MATTRESS PLACEMENT WELL. CALL LIGHT WIHTIN REACH. DIET SODA PROVIDED AT THIS TIME. NO DISTRESS. EYES OPEN WITH ATTENTION TOWARD TELEVSION AT THIS TIME.
--- NOTE | 2017-01-09 16:33 | NUR ---
VANILLA ICE CREAM PROVIDED TO PATIENT UPON REQUEST AT THIS TIME. NO DISTRESS. CALL LIGHT WITHIN REACH.
--- NOTE | 2017-01-09 19:19 | NUR ---
REPORT GIVEN TO ONCOMING NURSE. NO DISTRESS. RESTING WITH EYES OPEN IN RAMILA BED. CALL LIGHT WITHIN REACH.
--- NOTE | 2017-01-09 19:30 | NUR ---
ASSESSMENT COMPLETE, DENIES NEEDS AT THIS TIME. HOB UP IN RAMILA BED TO PREVENT FURTHER INJURY, RELEASED Q 2 HOURS PER RESTRAINT PROTOCOL. 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 DRSGS CDI. ON A FIRST STEP MATTRESS, ON RA WITH NS INFUSING W/O DIFF VIA PUMP TO LEFT WRIST IV SITE WITH NO R/S NOTED. CONTINUE TO MONITOR. CLOSELY.
[2017-01-10 00:37] VITALS: BP 198/75
--- NOTE | 2017-01-10 01:20 | NUR ---
SON AND DAUGHTER IN LAW NOW HERE, IN ROOM ATTEMPTING TO REORIENT, CONTINUES TO REFUSE TELEMETRY.HE IS WEARING O2, THO.C/L IN REACH.
--- NOTE | 2017-01-10 03:40 | NUR ---
EYES CLOSED, RESP UNLAB WITH NO S/S OF ACUTE DISTRESS NOTED. C/L IN REACH.
[2017-01-10 04:23] VITALS: BP 151/95
--- NOTE | 2017-01-10 07:00 | NUR ---
RECEIVED REPORT. ASSUMED CARE OF PATIENT. CALL LIGHT WITHIN REACH. PATIENT REMAINS IN RAMILA BED AT THIS TIME. ALERT/ORIENTED X 4. RESP EVEN AND UNLABORED. REQUESTING DIET COKE THIS AM. NO DISTRESS. IV FLUIDS INFUSING ORDERED.
--- NOTE | 2017-01-10 07:30 | NUR ---
DIET COKE PROVIDED UPON REQUEST. NO DISTRESS. DENIES ANY OTHER NEEDS. CALL LIGHT WITHIN REACH. SIDES OF RAMILA BED OPEN AT THIS TIME.
[2017-01-10 09:00] VITALS: BP 189/89
--- NOTE | 2017-01-10 09:00 | NUR ---
WOUND CARE PROVIDED TO RIGHT AKA AND SACRUM ORDERED. PATIENT PULLED DRESSINGS OFF AND WERE FOUND LYING IN BED AT THIS TIME DURING MED PASS. PATIENT STATED HE TOOK THEM OFF BECAUSE THE DRESSING HAD NOT BEEN CHANGED TODAY AND HE WANTED TO MAKE SURE THAT A NEW DRESSING WAS REPLACED. NEW DRESSINGS APPLIED. CALL LIGHT WITHIN REACH. DENIES NEEDS AT THIS TIME.
--- NOTE | 2017-01-10 11:30 | NUR ---
RESTING WITH EYES OPEN IN RAMILA BED WITH SIDES UNZIPPED. PATIENTS AT BEDSIDE. PATIENT REMAINS ALERT/ORIENTED X 4. IV FLUIDS INFUSING ORDERED. CALL LIGHT WITHIN REACH. DENIES NEEDS. NO DISTRESS.
--- NOTE | 2017-01-10 13:23 | NUR ---
MEDICATED FOR PAIN AT THIS TIME. NO DISTRESS.
--- NOTE | 2017-01-10 13:43 | NUR ---
NOTIFIED TRAFFIC COORDINATOR THAT A REGULAR BED IS NEEDED FOR PATIENT HIS RAMILA BED HAS BEEN DISCONTINUED BY . SUPERVISORING NOTIFYING EVS AT THIS TIME.
--- NOTE | 2017-01-10 14:21 | NUR ---
PATIENT HAS NOW BEEN PLACED ON A REGULAR [facility] BED WITH A 1ST STEP OVERLAY MATTRESS. PATIENT TOLERATED MOVING FROM RAMILA BED TO REGULAR BED WELL. PATIENT DENIES ANY NEEDS AT THIS TIME. CALL LIGHT WITHIN REACH. NO DISTRESS. PATIENT WITH ATTENTION TOWARD TELEVISION AT THIS TIME. 1ST STEP OVERLAY PATENT.
[2017-01-10 16:00] VITALS: BP 129/72
--- NOTE | 2017-01-10 17:20 | NUR ---
WOUND CARE TO SACRAL/COCCYX TISSUE INJURY PROVIDED AGAIN AT THIS TIME. DR. MELARA HERE FOR ROUNDS DURING WOUND CARE. TOLERATED WOUND CARE WELL. CALL LIGHT WITHIN REACH. PATIENTS SPOUSE AT BEDSIDE. NO DISTRESS.
--- NOTE | 2017-01-10 17:57 | NUR ---
MEDICATED FOR PAIN AT THIS TIME. SPOUSE AT BEDSIDE. NO DISTRESS. CALL LIGHT WITHIN REACH.
--- NOTE | 2017-01-10 19:30 | NUR ---
LYING ON BACK ON FIRST STEP MATTRESS ON REGULAR BED. SR UP X2, C/L IN REACH. BED ALARM ON AND WORKING FOR SAFETY. RT AKA NOTED WITH DREGGS CDI. CONTINUE TO MONITOR.
[2017-01-11] VITALS: BP 190/75
[2017-01-11 04:00] VITALS: BP 172/78
[2017-01-11 08:00] VITALS: BP 145/95
[2017-01-11 12:00] VITALS: BP 143/70
[2017-01-11 16:00] VITALS: BP 175/73
--- NOTE | 2017-01-11 20:10 | NUR ---
PT AWAKE, ALERT, ORIENTED, REQUESTING PAIN MEDICATION, STATES HIS R AKA STUMP HAS BEEN HURTING QUITE A BIT LATELY. DENIES ANY OTHER NEEDS. CONTINUE TO MONITOR CLOSELY.
[2017-01-11 21:40] VITALS: BP 175/66
[2017-01-12 02:00] VITALS: BP 169/77
--- NOTE | 2017-01-12 03:00 | NUR ---
PT LYING IN BED, AWAKE, ALERT, ORIENTED, C/O GREAT PAIN IN HIS RLE. DRESSING CHANGED ON RLE STUMP, AND ALSO WET TO DRY DAKINS TO HIS SACRAL WOUND. PRN NORCO GIVEN, WHICH PT STATES IT IS NOT CURRENTLY HELPING HIS PAIN. DENIES ANY OTHER NEEDS. CONTINUE TO MONITOR CLOSELY.
[2017-01-12 04:20] LABS: BASOPHILS 0.8 % (0.0-2.0); EOSINOPHILS 3.1 % (0-7); HEMOGLOBIN 9.8 g/dL (13.5-17.5); IMMATURE GRANULOCYTES 1.4 % (0-5); LYMPHOCYTES 28.2 % (15-50); MCH 27.2 pg (26.0-34.0); MCHC 30.6 g/dL (31.0-37.0); MCV 88.9 fL (80.0-100.0); MONOCYTES 9.2 % (2-11); NEUTROPHILS 57.3 % (40-80); PLATELET COUNT 290 10x3/uL (130-400); RDW 15.7 % (11.5-14.5); WBC 5.1 10x3/uL (4.8-10.8)
[2017-01-12 04:46] LABS: ANION GAP 12.1 mmol/L (8-16); C-REACTIVE PROTEIN 3.4 mg/dL (0.0-0.9); CALCIUM 8.6 mg/dL (8.5-10.1); CARBON DIOXIDE 26.1 mmol/L (21.0-32.0); CREATININE - SERUM 1.2 mg/dL (0.6-1.3); POTASSIUM - SERUM 3.2 mmol/L (3.5-5.1)
[2017-01-12 06:01] LABS: ERYTHROCYTE SEDIMENTATION RATE 65 mm/hr (0-20)
--- NOTE | 2017-01-12 06:15 | NUR ---
GAVE 40MEQ OF K+ PER EP
--- NOTE | 2017-01-12 08:16 | NUR ---
AM ROUNDING- PT LAYING IN BED ON BACK WITH EYES OPEN RESTING. IN CONTACT ISOLATION FOR MRSA IN PTS WOUND ON SACRUM AREA. ON FIRST STEP OVERLAY MATTRESS. ON EP. CHRISTIANO MYERS TX PTS POTASSIUM (3.2) THIS AM PER PROTOCOL. CLEAN, DRY, AND INTACT DRESSING SEEN TO RIGHT AKA STUMP AREA THAT WAS CHANGED BY CHRISTIANO MYERS (APPLICATIONS SCIENTIST NURSE). NO MONITOR. ROOM AIR. IV SEEN TO LEFT WRIST WITH NS RUNNING AT 75CC/HR. PER REPORT PT IS INCONTINENT AT TIMES. WILL CONTINUE TO MONITOR AND CONTINUE WITH PLAN OF CARE.
[2017-01-12 08:19] VITALS: BP 144/110
--- NOTE | 2017-01-12 11:16 | NUR ---
RESTARTED WOUND VAC THERAPY. THE COCCYX WOUND HAS IMPROVED AND IS MEASURING SMALLER. TODAY IT IS 3CM X 2CM X 1.8CM. WOUND BED IS RED. THERE IS SLIGHT MACERATION AROUND WOUND EDGES FROM WET TO DRY DRESSING. APPLIED 1 PIECE OF BLACK SPONGE TO WOUND BED AND PIGTAILED SPONGE TO RIGHT HIP AND PLACED THE TRAC PAD THERE. THIS WAS TO DECREASE PRESSURE ON COCCYX. PT TOLERATED WELL.
--- NOTE | 2017-01-12 11:29 | NUR ---
CHRISTIANO CAMPBELL WITH WOUND CARE IN PTS ROOM NOW DOING DRESSING WITH WOUND VAC TO PTS WOUND IN SACRUM AREA.
[2017-01-12 12:05] VITALS: BP 126/73
--- NOTE | 2017-01-12 15:02 | NUR ---
Nutrition follow-up: Diet: Consistent CHO PO intake 100% of most meals Recieving Glucerna Shake with meals Labs reviewed Wt: 266# PO intake remains good at this time. RDN following.
[2017-01-12 16:04] VITALS: BP 124/73
--- NOTE | 2017-01-12 17:20 | NUR ---
CHANGED PTS DRESSING TO RIGHT AKA. MEASUREMENTS OF WOUND ARE 6CM X 4CM X 0.2CM. YELLOW TISSUE SEEN. NO ODOR AND NO DRAINAGE. COVERED WITH DRY ADAPTIC PADS AND 4X4 GAUZE PADS, WRAPPED WITH KERLIX AND SECURED WITH PAPER TAPE. TOLERATED WELL. WILL CONTINUE TO MONITOR.
--- NOTE | 2017-01-12 17:47 | NUR ---
Patient Name: SUGAR LIVE Admission Status: ER Accout number: [id number] Admission Date: 01-03-2017 : 1945 Admission Diagnosis:PNEUMONIA, UNSPECIFIED ORGANISM Attending: IVAN Current LOS: 9 Anticipated DC Date: Planned Disposition: Home with Home Health Primary Insurance: MEDICARE A & B PLANNED EXTERNAL PROVIDER: [facility] Discharge Planning Comments: * Is the patient Alert and Oriented? Yes 0 * How many steps to enter\exit or inside your home? NONE 0 * PCP DR. SY 0 * Pharmacy [place] 0 * Preadmission Environment Home with Family 0 * ADLs Partial Dependent 0 * Partial ADLs (Assistance needed) Medication Management Transfers 0 * Equipment Hospital Bed Trapeze Wheelchair Wound Vac 0 * Other Equipment HOVERROUND SCOOTER, AIR MATTRESS NO MEDICAL EQUIPMENT PROVIDER PREFERENCE 0 * List name and contact numbers for known caregivers / representatives who currently or will assist patient after discharge: JEAN LIVE, SPOUSE, 0 * Community resources currently utilized Home Health 0 * Please name any agencies selected above. [facility], 0 * Additional services required to return to the preadmission environment? No 0 * Can the patient safely return to the preadmission environment? Yes 0 * Has this patient been hospitalized within the prior 30 days at any hospital? No 0 CM MET WITH PT IN ROOM TO DISCUSS DISCHARGE PLANNING AND NEEDS. PT REPORTS LIVING AT HOME DEPENDENT UPON SPOUSE. PT REPORTS HAVING ALL NEEDED MEDICAL EQUIPMENT ALONG WITH A WOUND VAC FROM [facility]; PT HAS HOME HEALTH WITH [facility]. CM DISCUSSED AVAILABILITY OF HOME HEALTH, REHAB SERVICES AND MEDICAL EQUIPMENT. PT WILL NOT CONSIDER REHAB AND REPORTS PLAN TO DISCHARGE HOME WITH ASSISTANCE OF HIS AND HOME HEALTH, REPORTS HIS WILL PICK HIM UP FOR DISCHARGE HOME. IMPORTANT MESSAGE FROM MEDICARE PROVIDED AND EXPLAINED. PT PLANS TO DISCHARGE HOME WITH SPOUSE AND RESUMPTION OF [facility]. TO RESUME HOME HEALTH AT DISCHARGE, NOTIFY [facility] AT [phone], FAX DISCHARGE INFORMATION TO [facility] AT [phone]. CM TO CONTINUE TO FOLLOW AND ASSIST IF NEEDED. [employer] Developer: Juanito Phillips
--- NOTE | 2017-01-12 18:16 | NUR ---
PT LAYING IN BED ON BACK WITH EYES CLOSED WATCHING TV. DENIES ANY NEED AT CURRENT TIME. WILL CONTINUE TO MONITOR.
[2017-01-12 20:00] VITALS: BP 146/78
[2017-01-13 04:00] VITALS: BP 164/67
--- NOTE | 2017-01-13 04:51 | NUR ---
NURSE ROUNDS 19:30 - PT AWAKE, ALERT, ORIENTED. DENIED ANY ACUTE NEEDS. CONTINUE TO MONITOR CLOSELY. BED LOW, CALL LIGHT IN REACH, SIDE RAILS X 2, HOB 15 DEGREES.
[2017-01-13 05:37] LABS: BASOPHILS 1.1 % (0.0-2.0); EOSINOPHILS 4.2 % (0-7); HEMATOCRIT 30.8 % (42.0-54.0); HEMOGLOBIN 9.4 g/dL (13.5-17.5); LYMPHOCYTES 31.7 % (15-50); MCH 27.4 pg (26.0-34.0); MCHC 30.5 g/dL (31.0-37.0); MCV 89.8 fL (80.0-100.0); MEAN PLATELET VOLUME 10.1 fL (7.4-10.4); MONOCYTES 10.3 % (2-11); NEUTROPHILS 50.7 % (40-80); PLATELET COUNT 242 10x3/uL (130-400); RBC 3.43 10x6/uL (4.20-6.10); RDW 15.9 % (11.5-14.5); WBC 4.5 10x3/uL (4.8-10.8)
[2017-01-13 05:56] LABS: ANION GAP 11.2 mmol/L (8-16); CALCIUM 8.4 mg/dL (8.5-10.1); CARBON DIOXIDE 28.4 mmol/L (21.0-32.0); CREATININE - SERUM 1.1 mg/dL (0.6-1.3); POTASSIUM - SERUM 3.6 mmol/L (3.5-5.1)
--- NOTE | 2017-01-13 07:55 | NUR ---
AM ROUNDING- PT LAYING IN BED ON BACK WITH EYES OPEN RESTING. IN CONTACT ISOLATION FOR MRSA IN PTS WOUND. ON EP, WILL CHECK AM LABS AND TX PER PROTOCOL. CLEAN, DRY, AND INTACT DRESSING SEEN TO PTS RIGHT AKA. WOUND VAC SEEN TO PTS WOUND IN LOWER MID BACK AREA, SHANNAN WITH WOUND CARE DID WOUND VAC YESTERDAY PER REPORT. ON ROOM AIR. NO MONITOR. IV SEEN TO LEFT WRIST WITH NS RUNNING AT 75CC/HR. ON FIRST STEP OVERLAY MATTRESS WITH A TRAPEZE BAR. NO NEED AT CURRENT TIME. WILL CONTINUE TO MONITOR.
[2017-01-13 08:21] VITALS: BP 167/73
[2017-01-13 12:36] VITALS: BP 136/66
[2017-01-13 15:35] VITALS: BP 173/73
--- NOTE | 2017-01-13 15:52 | NUR ---
Patient Name: SUGAR LIVE Encounter No: [id number] : 1945 Primary Insurance: MEDICARE A & B Anticipated DC Date: 01-13-2017 Planned Disposition: Home with Home Health External Planned Provider: [facility] DCP follow-up note: CM RECEIVED DISCHARGE ORDER, CALLED [facility] AND NOTIFIED NAIMA AT [phone], FAXED DISCHARGE INFORMATION TO NAIMA AT [phone]. PT NOTIFIED, IN AGREEMENT WITH DISCHARGE HOME WITH HOME HEALTH RESUMPTION. HOME HEALTH TO RESUME TOMORROW. PT'S FAMILY TO TRANSPORT PT HOME. Locks Tender: Juanito Phillips
--- NOTE | 2017-01-13 17:00 | NUR ---
1600- D/C PAPERWORK EXPLAINED TO PT, SIGNED BY PTS , AND PLACED IN CHART. IV TO LEFT WRIST REMOVED WITH CATH TIP INTACT. TOLERATED WELL. WAYLON RN ASSISTED ME WITH CLAMPING PTS WOUND TO WOUND VAC. PT WILL BE USING WOUND VAC AT HOME WITH HELP OF [facility]. WOUND VAC TUBING WRAPPED AND SECURED WITH RUBBER BAND UNTIL PT GETS HOME. CALLED [facility], AWAITING AMBULANCE TO TAKE PT HOME. 1700- [facility] HERE TO TAKE PT HOME. PT D/C VIA STRETCHER WITH EMS STAFF.
== END 2017-01-13 17:04 | disposition home health service (06) | DRG 564 ==
LOC: D.ER 14:58 → D.M2 21:05
PROVIDERS: Family Medicine; ADMIT Family Medicine Adult Medicine
DX: T87.81 Dehiscence of amputation stump (principal); J18.9 Pneumonia, unspecified organism; R53.2 Functional quadriplegia; L89.153 Pressure ulcer of sacral region, stage 3; G93.41 Metabolic encephalopathy; M86.8X8 Other osteomyelitis, other site; J44.0 Chronic obstructive pulmonary disease with (acute) lower respiratory infection; F05 Delirium due to known physiological condition; J98.11 Atelectasis; E44.0 Moderate protein-calorie malnutrition; J44.1 Chronic obstructive pulmonary disease with (acute) exacerbation; W19.XXXA Unspecified fall, initial encounter; E11.40 Type 2 diabetes mellitus with diabetic neuropathy, unspecified; E11.22 Type 2 diabetes mellitus with diabetic chronic kidney disease; I12.9 Hypertensive chronic kidney disease with stage 1 through stage 4 chronic kidney disease, or unspecified chronic kidney disease; N18.3 Chronic kidney disease, stage 3 (moderate); Z79.4 Long term (current) use of insulin; I25.10 Atherosclerotic heart disease of native coronary artery without angina pectoris; I73.9 Peripheral vascular disease, unspecified; D63.8 Anemia in other chronic diseases classified elsewhere; W06.XXXA Fall from bed, initial encounter; Y92.230 Patient room in hospital as the place of occurrence of the external cause; B96.20 Unspecified Escherichia coli [E. coli] as the cause of diseases classified elsewhere; B95.62 Methicillin resistant Staphylococcus aureus infection as the cause of diseases classified elsewhere; E87.6 Hypokalemia; E78.5 Hyperlipidemia, unspecified; Z68.28 Body mass index [BMI] 28.0-28.9, adult; Z87.891 Personal history of nicotine dependence

== ENCOUNTER 2017-08-21 17:19 | Emergency (ER) | payer MEDICARE, OTHER ==
[2017-01-04 13:43] VITALS: BMI 28.3
[~2017-08-21 17:19] MED LIST changes: +ATIVAN0.5 MG PO; +COZAAR100 MG PO; +LASIX40 MG PO; +MACROBID100 MG PO; +PROAIR HFA8.5 GM INH; +ZOLOFT50 MG PO
== END 2017-08-21 18:56 | disposition home or self-care (01) ==
LOC: D.ER 17:19
DX: S52.125A Nondisplaced fracture of head of left radius, initial encounter for closed fracture (principal); V00.148A Other scooter (nonmotorized) accident, initial encounter; Y93.89 Activity, other specified; Y92.029 Unspecified place in mobile home as the place of occurrence of the external cause; E11.9 Type 2 diabetes mellitus without complications; S20.219A Contusion of unspecified front wall of thorax, initial encounter; N18.9 Chronic kidney disease, unspecified

== ENCOUNTER 2017-08-25 13:57 | Inpatient (IN) | payer MEDICARE, OTHER ==
[~2017-08-25] VITALS: Ht 182.9 cm; Wt 109.7 kg
[2017-08-25 14:16] LABS: BASOPHILS 0.1 % (0-2); EOSINOPHILS 0 % (0-7); HEMATOCRIT 40.4 % (42.0-54.0); HEMOGLOBIN 12.4 g/dL (13.5-17.5); IMMATURE GRANULOCYTES 0.5 % (0-5); LYMPHOCYTES 7.1 % (15-50); MCH 29.1 pg (26.0-34.0); MCHC 30.7 g/dL (31.0-37.0); MCV 94.8 fL (80.0-100.0); MEAN PLATELET VOLUME 10.4 fL (7.4-10.4); MONOCYTES 5.2 % (2-11); NEUTROPHILS 87.1 % (40-80); PLATELET COUNT 253 10x3/uL (130-400); RBC 4.26 10x6/uL (4.20-6.10); RDW 14.8 % (11.5-14.5)
[2017-08-25 14:36] LABS: ALBUMIN 2.6 g/dL (3.4-5.0); ANION GAP 15.6 mmol/L (8-16); BILIRUBIN - TOTAL 0.45 mg/dL (0.2-1.3); CALCIUM 9.9 mg/dL (8.5-10.1); CARBON DIOXIDE 26.9 mmol/L (21.0-32.0); CREATININE - SERUM 2.6 mg/dL (0.6-1.3); POTASSIUM - SERUM 4.5 mmol/L (3.5-5.1); PROTEIN - SERUM 7.3 g/dL (6.4-8.2)
[2017-08-25 15:15] LABS: MAGNESIUM - SERUM 1.8 mg/dL (1.8-2.4); PRO BNP 3217 pg/mL (0-125); TROPONIN-I 0.058 ng/mL (0.000-0.060)
[2017-08-25 15:17] LABS: CKMB 9.6 U/L (0.0-3.6); CREATINE KINASE 1978 UL (21-232)
--- NOTE | 2017-08-25 17:09 | NUR ---
ARRIVE TO ROOM VIA STRETCHER FROM ER ACCOMPANIED BY FAMILY. ALERT AND ORIENTED X4. MAX ASSIST TRANSFER FROM STRETCHER TO BED X2 NURSES. WHEEZES HEARD. DYSPNEA WITH ACTIVITY. SCD ON LT LEG. RT BKA. CONTINUE ADMISSION PROCESS. OXYGEN AT 4L NC. BED LOCKED AND LOW. CALL LIGHT IN REACH. TWO SIDERAILS UP. BED ALARM ON.
[2017-08-25] MEDS ORDERED: GLUCOPHAGE1000 MG PO (17:23)
[2017-08-25] MEDS ORDERED: HYZAAR 100-25 T1 TAB PO (17:25)
[2017-08-25] MEDS ORDERED: K-TAB10 MEQ PO (17:27)
[2017-08-25] MEDS ORDERED: ROXICODONE15 MG PO (17:30)
[2017-08-25] MEDS ORDERED: DILAUDID4 MG PO (17:34)
[2017-08-25 17:52] VITALS: BP 134/53; BMI 34.0
[2017-08-25 19:00] VITALS: BP 143/52
--- NOTE | 2017-08-25 20:17 | NUR ---
SPOKE WITH HEIDI DAVIS PTS HOME MEDICATIONS, ORDER GIVEN FOR NORCO 5/325 1 TAB TO BE GIVEN EVERY 6 HOURS NEEDED.
--- NOTE | 2017-08-26 01:02 | NUR ---
NORCO 1 TAB GIVEN FOR C/O PAIN TO CHEST, RATES PAIN AT 6 ON PAIN SCALE.
--- NOTE | 2017-08-26 02:25 | NUR ---
CALL LIGHT IN REACH. WILL CONTINUE WITH PLAN OF CARE.
--- NOTE | 2017-08-26 04:35 | NUR ---
RESTING WITH EYES CLOSED, RESPERATIONS, NO S/S DISTRESS NOTED.
--- NOTE | 2017-08-26 05:30 | NUR ---
ENTERED ROOM TO ADMINISTER AM LASIX, IV TO RIGHT HAND OUT, PT STATED THAT HE WASNT SURE WHAT HAPPENED, RESITED IV TO RIGHT FOREARM, 22 GUAGE, FIRST ATTEMPT. PT TOLERATED WELL. AFTER IV SITE REASTABLISHED, LASIX THEN GIVEN SLOW IVP.
[2017-08-26 05:52] LABS: BASOPHILS 0.2 % (0-2); EOSINOPHILS 0.1 % (0-7); HEMATOCRIT 34.5 % (42.0-54.0); HEMOGLOBIN 11.2 g/dL (13.5-17.5); IMMATURE GRANULOCYTES 0.2 % (0-5); LYMPHOCYTES 10.2 % (15-50); MCH 30.1 pg (26.0-34.0); MCHC 32.5 g/dL (31.0-37.0); MEAN PLATELET VOLUME 10.1 fL (7.4-10.4); NEUTROPHILS 82.3 % (40-80); RBC 3.72 10x6/uL (4.20-6.10); RDW 14.7 % (11.5-14.5)
[2017-08-26 06:14] LABS: MCV 92.7 fL (80.0-100.0); PLATELET COUNT 202 10x3/uL (130-400); WBC 9.8 10x3/uL (4.8-10.8)
[2017-08-26 06:15] LABS: ALBUMIN 2.4 g/dL (3.4-5.0); ANION GAP 14.5 mmol/L (8-16); BILIRUBIN - TOTAL 0.34 mg/dL (0.2-1.3); CALCIUM 8.7 mg/dL (8.5-10.1); CARBON DIOXIDE 27.6 mmol/L (21.0-32.0); CREATININE - SERUM 2.6 mg/dL (0.6-1.3); POTASSIUM - SERUM 4.1 mmol/L (3.5-5.1)
--- NOTE | 2017-08-26 07:12 | NUR ---
AM ROUNDS- PT IN BED, RESP EVEN AND UNALABORED. NAD NOTED, PT DENIES ANY NEEDS AT THIS TIME. BED LOW AND WHEELS LOCKED, BEDSIDE RAILS X2, CALL LIGHT IN REACH, WILL CONTINUE PLAN OF CARE.
--- NOTE | 2017-08-26 09:11 | NUR ---
AM MEDS GIVEN AT THIS TIME. APARTMENT COORDINATOR'S JUST FINISHED GIVING PT A BED BATH. PT DENIES ANY NEEDS AT THIS TIME. CALL LIGHT IN REACH, NAD NOTED, WILL CONTINUE TO MONITOR.
[2017-08-26 10:22] VITALS: BP 158/68
[2017-08-26 12:08] VITALS: BP 122/65
[2017-08-26 13:16] VITALS: Ht 182.9 cm; Wt 109.7 kg
--- NOTE | 2017-08-26 13:38 | NUR ---
PT RESPOSITONED IN BED, DENIES ANY NEEDS AT THIS TIME. HEIDI HOLGUIN AT BEDSIDE TO ASSESS PT. NAD NOTED, FAMILY AT BEDSIDE, WILL CONTINUE TO MONITOR.
[2017-08-26 15:26] VITALS: BP 125/68
--- NOTE | 2017-08-26 17:02 | NUR ---
CALLED PHARMACY AND SPOKE WITH ANDRAE, ASKED HER ABOUT PT'S UNASYN. ANDRAE STATED THAT THEY HAVE NOT MIXED IT YET, SOON ITS READY PHARMACY WILL BRING IT UP.
--- NOTE | 2017-08-26 19:12 | NUR ---
PATIENT IS ALERT IN BED, RR, SR ON MONITOR, DENIES NEEDS OR PAIN AT THIS TIME. CALL LIGHT IS IN REACH.
[2017-08-26 20:00] VITALS: BP 129/54
[2017-08-27] VITALS: BP 149/59
--- NOTE | 2017-08-27 05:39 | NUR ---
LYING IN BED WITH CALL LIGHT IN REACH. WILL CONTINUE WITH PLAN OF CARE.
[2017-08-27 05:53] LABS: BASOPHILS 0 % (0-2); EOSINOPHILS 0 % (0-7); HEMATOCRIT 31.5 % (42.0-54.0); IMMATURE GRANULOCYTES 0.3 % (0-5); LYMPHOCYTES 11.9 % (15-50); MCH 28.7 pg (26.0-34.0); MCHC 31.7 g/dL (31.0-37.0); MEAN PLATELET VOLUME 10.2 fL (7.4-10.4); MONOCYTES 7.4 % (2-11); NEUTROPHILS 80.4 % (40-80); PLATELET COUNT 225 10x3/uL (130-400); RBC 3.48 10x6/uL (4.20-6.10); RDW 14.5 % (11.5-14.5)
[2017-08-27 06:02] LABS: MCV 90.5 fL (80.0-100.0); WBC 5.8 10x3/uL (4.8-10.8)
[2017-08-27 06:12] LABS: ALBUMIN 2.2 g/dL (3.4-5.0); ANION GAP 13.2 mmol/L (8-16); BILIRUBIN - TOTAL 0.23 mg/dL (0.2-1.3); CALCIUM 9.2 mg/dL (8.5-10.1); CARBON DIOXIDE 29.4 mmol/L (21.0-32.0); POTASSIUM - SERUM 3.6 mmol/L (3.5-5.1); PROTEIN - SERUM 6.9 g/dL (6.4-8.2)
[2017-08-27 08:00] VITALS: BP 180/53
--- NOTE | 2017-08-27 08:01 | NUR ---
ASSESSMENT DONE. DENIES NEEDS.
--- NOTE | 2017-08-27 08:51 | NUR ---
ASSISTED ON BEDPAN FOR BM. CALL LIGHT IN REACH. WILL MONITOR.
--- NOTE | 2017-08-27 10:35 | CN ---
PATIENT NAME:SUGAR LIVE MEDICAL RECORD: [id number] : [birth year] LOCATION:D.M2 D.2127 ADMIT DATE: 08/25/17 ACCOUNT: [id number] CONSULTING PHYSICIAN: HALIE RAYA MD REFERRING PHYSICIAN: MAYO MELARA DO DATE OF CONSULTATION: 08/26/2017 CONSULT REQUESTING PHYSICIAN: MAYO MELARA DO REASON FOR CONSULTATION: Pneumonia, most likely aspiration pneumonia; and COPD exacerbation. HISTORY OF PRESENT ILLNESS: Mr. Live is a 72-year-old gentleman. Yesterday, the patient started throwing up. He had full-mouth vomiting and he was lying in the bed at the same time and he has aspirated as well. Since then, he has shortness of breath and coughing. The patient was seen in the ER and admitted for pneumonia, possible aspiration pneumonia; and COPD exacerbation. Also, his creatinine was high. REVIEW OF THE SYSTEMS: As in history of present illness. PAST MEDICAL HISTORY: 1. COPD. 2. History of mental status changes with previous hospitalization. 3. Hypertension. 4. Coronary artery disease. 5. Diabetes mellitus type 2. 6. Peripheral vascular disease. 7. History of sacral myelitis. PAST SURGICAL HISTORY: 1. Cholecystectomy. 2. Shoulder surgery. 3. Right above-knee amputation. ALLERGIES: HE IS ALLERGIC TO IV DYE. MEDICATIONS: [employer] was reviewed. PERSONAL AND SOCIAL HISTORY: The patient is and lives with his . He is an ex-smoker. He is nondrinker. FAMILY HISTORY: Noncontributory. PHYSICAL EXAMINATION: GENERAL: Now, the patient is lying comfortably in bed. He is not in acute distress. VITAL SIGNS: The blood pressure is 125/68, pulse is 94, respirations are 18, temperature 97.9, and SpO2 of 94% on 6 liters nasal cannula. HEENT: Conjunctivae pink. Sclerae not icteric. NECK: Supple. No JVD. CHEST: Excursion is minimal on both sides. There are wheezing and bibasal crackles. HEART: Rhythm regular. Normal sounds. No murmur. ABDOMEN: Soft. Bowel sounds present. No hepatosplenomegaly. CONSULT REPORT [id number] SUGAR LIVE RECTAL: Deferred. EXTREMITIES: No cyanosis, no clubbing, and no pedal edema. SKIN: The skin is warm. Normal turgor. CENTRAL NERVOUS SYSTEM: The patient is awake and alert. There is no obvious cranial nerve abnormality. The gait was not tested. CHEST RADIOGRAPH: There is bibasilar infiltrate. There is also trace left pleural effusion. LABORATORY DATA: CBC; WBC is 17,000, hemoglobin 12.4, hematocrit 40.4, and platelet count 253. Chemistry; sodium 142, potassium 4.5, BUN is 55, and creatinine 2.6. IMPRESSION: 1. Acute hypoxic respiratory failure. 2. Pneumonia, most likely aspiration pneumonia while the patient was vomiting. 3. Acute exacerbation of COPD. 4. Acute mental status changes, most likely secondary to metabolic encephalopathy. 5. Acute renal failure. 6. Possible secondary to dehydration. 7. Left pleural effusion. RECOMMENDATION: 1. Continue Levaquin. I will add Unasyn for anaerobes and gram-negative rods. 2. Methylprednisolone IV. 3. Albuterol/ipratropium nebulizer. 4. Brovana and budesonide nebulizer. 5. Mucinex DM. 6. Followup labs and chest radiograph in the morning. 7. Speech pathologist evaluation for any chronic aspiration. Dr. Melara, thank you for involving me in the care of Mr. Live. TRANSINT:[id number] Voice Confirmation ID: [id number] DOCUMENT ID: [id number] HALIE RAYA MD at 1035 CC: MAYO MELARA DO [id number] DICTATION DATE: 08/26/17 1537 CRANE MECHANIC: 08/26/17 1635 ADM IN [facility] [address] [place] [address]
[2017-08-27 12:00] VITALS: BP 165/76
[2017-08-27 18:02] VITALS: BP 149/67
--- NOTE | 2017-08-27 18:22 | NUR ---
WITHOUT CHANGES OR DISTRESS NOTED AT THIS TIME. YASMANI NEEDS.
--- NOTE | 2017-08-27 19:25 | NUR ---
PATIENT IS ALERT WATCHING TV, NEW IV ACCESS STARTED TO THE RIGHT AC. PATIENT DENIES NEEDS OR PAIN AT THIS TIME. CALL LIGHT IN REACH.
[2017-08-27 20:00] VITALS: BP 164/59
--- NOTE | 2017-08-27 21:54 | NUR ---
PT AWAKE; DENIES ANY DISCOMFORT. WILL CONTINUE TO MONITOR.
[2017-08-28] VITALS: BP 157/60
[2017-08-28 04:00] VITALS: BP 155/61
[2017-08-28 05:22] LABS: BASOPHILS 0 % (0-2); EOSINOPHILS 0 % (0-7); HEMATOCRIT 32.4 % (42.0-54.0); HEMOGLOBIN 10.5 g/dL (13.5-17.5); IMMATURE GRANULOCYTES 0.7 % (0-5); MCH 29.3 pg (26.0-34.0); MCHC 32.4 g/dL (31.0-37.0); MCV 90.5 fL (80.0-100.0); MEAN PLATELET VOLUME 10.1 fL (7.4-10.4); MONOCYTES 8.4 % (2-11); NEUTROPHILS 77.9 % (40-80); PLATELET COUNT 251 10x3/uL (130-400); RBC 3.58 10x6/uL (4.20-6.10); RDW 14.6 % (11.5-14.5); WBC 6.1 10x3/uL (4.8-10.8)
[2017-08-28 05:45] LABS: ALBUMIN 2.2 g/dL (3.4-5.0); ANION GAP 14.8 mmol/L (8-16); BILIRUBIN - TOTAL 0.16 mg/dL (0.2-1.3); CALCIUM 9.4 mg/dL (8.5-10.1); CARBON DIOXIDE 26.8 mmol/L (21.0-32.0); CREATININE - SERUM 1.8 mg/dL (0.6-1.3); POTASSIUM - SERUM 3.6 mmol/L (3.5-5.1); PROTEIN - SERUM 6.9 g/dL (6.4-8.2)
--- NOTE | 2017-08-28 05:48 | NUR ---
IV RESTARTED #22 TO INNER LFA WITH ATTEMPT X2. PT TOLERATED PROCEDURE WELL.
--- NOTE | 2017-08-28 07:15 | NUR ---
REPORT RECEIVED. RR EVEN AND UNLABORED. PT REPORTS WANTING TO GO HOME TODAY. PT SHOWS NO SIGNS OF DISTRESS. CALL LIGHT IN REACH, BED IN LOWEST POSTION, WILL CTM.
[2017-08-28 08:16] VITALS: BP 177/49
[2017-08-28 11:23] VITALS: BP 165/66
[2017-08-28 15:46] VITALS: BP 166/80
--- NOTE | 2017-08-28 18:30 | NUR ---
PT RESTING QUIETLY, RR EVEN AND UNLAOBRED. PT DENIES NEEDS AT THIS TIME. WILL GIVE REPORT ON PT CONDTION FOR THE DAY.
[2017-08-28 20:00] VITALS: BP 168/69
[2017-08-29] VITALS: BP 167/51
--- NOTE | 2017-08-29 01:31 | NUR ---
PT RESTING WELL WITHOUT C/O OR DISTRESS NTOED. CALL LIGHT WITHIN REACH. WILL CONT TO MONITOR.
[2017-08-29 06:37] LABS: BASOPHILS 0 % (0-2); EOSINOPHILS 0 % (0-7); HEMATOCRIT 34.6 % (42.0-54.0); IMMATURE GRANULOCYTES 1.9 % (0-5); LYMPHOCYTES 14.1 % (15-50); MCH 28.4 pg (26.0-34.0); MCHC 31.8 g/dL (31.0-37.0); MCV 89.2 fL (80.0-100.0); MONOCYTES 7.3 % (2-11); NEUTROPHILS 76.7 % (40-80); PLATELET COUNT 271 10x3/uL (130-400); RBC 3.88 10x6/uL (4.20-6.10); RDW 14.8 % (11.5-14.5); WBC 6.3 10x3/uL (4.8-10.8)
[2017-08-29 07:03] LABS: ALBUMIN 2.4 g/dL (3.4-5.0); ANION GAP 16.9 mmol/L (8-16); BILIRUBIN - TOTAL 0.27 mg/dL (0.2-1.3); CALCIUM 9.4 mg/dL (8.5-10.1); CARBON DIOXIDE 24.8 mmol/L (21.0-32.0); CREATININE - SERUM 1.8 mg/dL (0.6-1.3); POTASSIUM - SERUM 3.7 mmol/L (3.5-5.1); PROTEIN - SERUM 7.2 g/dL (6.4-8.2); URIC ACID 10.2 mg/dL (2.6-7.2)
--- NOTE | 2017-08-29 07:23 | NUR ---
AM ROUNDING- RECEIVED REPORT FROM BILINGUAL [employer]DLE SCHOOL TEACHER NURSE RUPA. PT IS CURRENTLY LAYING IN BED ON BACK WITH EYES OPEN RESTING. PT IS C/0 10/10 PAIN (PRN PAIN MEDICATION ORDERED NOT DUE AT THIS TIME). PT IS ON 02 AT 4L VIA NC. ON MONITOR SHOWING SR, HR 66. IV SEEN TO LEFT FOREARM WITH NS RUNNING AT KVO (10CC). NO NEED AT THIS CURRENT TIME. WILL CONTINUE TO MONITOR AND CONTINUE WITH PLAN OF CARE.
[2017-08-29 08:00] VITALS: BP 187/69
--- NOTE | 2017-08-29 11:15 | NUR ---
TURNED PT ON SIDE. PTS BUTTOCK AREA HAS BLANCHABLE RED SKIN. BUTTOCK AREA AROUND THE CRACK HAS WHAT APPEARS TO BE SORE/SCAB. BUTT PASTE APPLIED AND PT TURNED ON RIGHT SIDE.
[2017-08-29 12:00] VITALS: BP 167/73
--- NOTE | 2017-08-29 13:24 | NUR ---
PT STATES HE DOES NOT WANT TO WEAR NON-SKID SOCK. PT IS ALERT AND ORIENTED. IS AT BEDSIDE. BED IS IN LOW POSITION, SIDE RAILS ARE UP X2, AND CALL LIGHT IS IN REACH. PT TURNED ON LEFT SIDE (BUTTOCK IS RED). WILL CONTINUE TO MONITOR.
--- NOTE | 2017-08-29 13:55 | NUR ---
THIS NURSE HAS SEEN ORDER FOR FIRST STEP OVERLAY MATTRESS. PT REFUSES TO HAVE FIRST STEP OVERLAY MATTRESS. I INFORMED PT THAT IS VERY IMPORTANT TO TURN ON EACH SIDE THROUGHOUT SHIFT TO HELP PREVENT FURTHER SKIN BREAKDOWN. PT AGREES.
[2017-08-29 16:00] VITALS: BP 174/47
--- NOTE | 2017-08-29 17:47 | NUR ---
PT IS CURRENTLY SITTING UP IN BED WITH EYES OPEN RESTING. IS AT BEDSIDE. PT DENIES ANY NEED AT THIS CURRENT TIME. WILL CONTINUE TO MONIITOR.
[2017-08-30] VITALS: BP 175/49
[2017-08-30 04:00] VITALS: BP 181/65
[2017-08-30 06:05] LABS: BASOPHILS 0.2 % (0-2); EOSINOPHILS 0 % (0-7); HEMATOCRIT 34.7 % (42.0-54.0); IMMATURE GRANULOCYTES 5.4 % (0-5); LYMPHOCYTES 17.8 % (15-50); MCH 28.6 pg (26.0-34.0); MCHC 31.7 g/dL (31.0-37.0); MCV 90.4 fL (80.0-100.0); MEAN PLATELET VOLUME 9.9 fL (7.4-10.4); MONOCYTES 8.9 % (2-11); NEUTROPHILS 67.7 % (40-80); PLATELET COUNT 280 10x3/uL (130-400); RBC 3.84 10x6/uL (4.20-6.10)
[2017-08-30 06:29] LABS: ALBUMIN 2.2 g/dL (3.4-5.0); ANION GAP 13.8 mmol/L (8-16); BILIRUBIN - TOTAL 0.2 mg/dL (0.2-1.3); CALCIUM 9.1 mg/dL (8.5-10.1); CARBON DIOXIDE 26.8 mmol/L (21.0-32.0); POTASSIUM - SERUM 3.6 mmol/L (3.5-5.1); PROTEIN - SERUM 6.6 g/dL (6.4-8.2)
[2017-08-30 08:39] VITALS: BP 184/66
--- NOTE | 2017-08-30 13:15 | NUR ---
Nutrition follow-up: Diet: ADA consistent CHO PO Intake ~67% average of last 6 meals Labs reviewed Wt: 242# +BM PO intake food to fair at meals. RDN following.
[2017-08-30 13:37] VITALS: BP 158/53
--- NOTE | 2017-08-30 15:56 | NUR ---
PT HAS BEEN RESTING IN BED. AT BEDSIDE. SEE ASSESSMENT FOR FUTHER EVAL.
[2017-08-30 16:04] VITALS: BP 130/41
--- NOTE | 2017-08-30 19:20 | NUR ---
ROUNDING NOTE: PT IS ALERT AND ORIENTED X3, LAYING IN BED AT THE CHANGE OF SHIFT. PT REPORTS 8/10 PLEURITIC CHEST PAIN. HE HAS BEEN GETTING NORCO FOR THIS, LAST RECEIVED AT 1814. PT STATING THAT HE NEEDS UPDRAFT RESP TX DUE TO CP AND SOB. HIS BREATHING TX WERE DUE AT 1900, SO WILL CALL RESP THERAPY TO COME AND SEE PT. BREATHING PATTERN IS SHALLOW, LUNG SOUNDS ARE TIGHT W/ POOR AIR MOVEMENT AND VERY DIMINSHED IN BILATERAL BASES W/ RHONCHI ON THE LEFT. PT ALSO REQUESTING A CUP OF ICE, GIVEN PER REQUEST. WILL CONT TO MONITOR.
[2017-08-30 22:18] VITALS: BP 182/58
--- NOTE | 2017-08-30 22:30 | NUR ---
PT STATED THAT HE SPOKE WITH HEIDI HOLGUIN NP ABOUT CHANGING FREQUENCY OF NORCO FROM [id number] TO [id number]. CALLED THE ANSWERING SERVICE, SPOKE W/ HEIDI AND VERIFIED THIS. ORDER FOR NORCO Q4HRS PRN ENTERED. WILL CONT TO MONITOR.
[2017-08-31] VITALS (7 sets, daily range): BP systolic 124–171; BP diastolic 42–65
--- NOTE | 2017-08-31 06:45 | NUR ---
AM ROUNDING DONE WITH NIGHT NURSE. PATIENT IS COMPLETELY WET WITH URINE. COMPLETE BED BATH AND LINEN DONE. OLD RIGHT AKA SEEN, BOTTOM IS SLIGHTLY RED, ENCOURAGED PATIENT TO TURN ON SIDES OFTEN TO HELP PREVENT SKIN BREAKDOWN. ON HEART MONITOR SHOWING SR, HR 76. SALINE LOCK SEEN TO RIGHT FA. WILL CONTINUE TO MONITOR.
[2017-08-31 10:19] LABS: HEPATITIS C ANTIBODY <0.1 (0.0-0.9)
[2017-08-31 11:39] LABS: BASOPHILS 0.1 % (0-2); EOSINOPHILS 0.3 % (0-7); HEMATOCRIT 34.7 % (42.0-54.0); IMMATURE GRANULOCYTES 5.2 % (0-5); LYMPHOCYTES 13.6 % (15-50); MCH 28.9 pg (26.0-34.0); MCHC 31.7 g/dL (31.0-37.0); MCV 91.1 fL (80.0-100.0); MEAN PLATELET VOLUME 9.7 fL (7.4-10.4); MONOCYTES 7.7 % (2-11); NEUTROPHILS 73.1 % (40-80); PLATELET COUNT 257 10x3/uL (130-400); RBC 3.81 10x6/uL (4.20-6.10); RDW 15.2 % (11.5-14.5)
[2017-08-31 11:40] LABS: ANION GAP 13.1 mmol/L (8-16); CALCIUM 8.7 mg/dL (8.5-10.1); CARBON DIOXIDE 25.2 mmol/L (21.0-32.0); CREATININE - SERUM 1.8 mg/dL (0.6-1.3); POTASSIUM - SERUM 3.3 mmol/L (3.5-5.1)
[2017-08-31 11:44] LABS: WBC 8.7 10x3/uL (4.8-10.8)
--- NOTE | 2017-08-31 18:20 | NUR ---
CLEAN PINK PAD AND TOP SHEET TO PATIENT. WITH ASSIST X 2, PATIENT PULLED UP IN THE BED. DENIES ANY FURTHER NEEDS AT PRESENT TIME. WITH THE NEW MEDICATION OF LEVAQUIN, THERE HAS BEEN NO NEW MEDS TODAY FOR HIM. PATIENT REPORTS THAT HE SAT UP WITH THERAPY TODAY. WILL CONTINUE TO MONITOR.
--- NOTE | 2017-08-31 19:00 | NUR ---
ROUNDING NOTE: PT IS A,A,OX3, SITTING UP IN BED AT THE CHANGE OF SHIFT. PT IS ON RA. HE REPORTS THAT HIS CHEST PAIN HAS IMPROVED SINCE YESTERDAY. ON MONITOR, PT IS SR W/ HR 68. PT HAS SALINE LOC TO LEFT FOREARM. WILL CONT TO MONITOR.
[2017-09-01 04:00] VITALS: BP 155/85
[2017-09-01 05:41] LABS: BASOPHILS 0.1 % (0-2); EOSINOPHILS 0 % (0-7); HEMATOCRIT 34.1 % (42.0-54.0); HEMOGLOBIN 10.7 g/dL (13.5-17.5); IMMATURE GRANULOCYTES 7.3 % (0-5); LYMPHOCYTES 10.6 % (15-50); MCH 28.4 pg (26.0-34.0); MCHC 31.4 g/dL (31.0-37.0); MCV 90.5 fL (80.0-100.0); MEAN PLATELET VOLUME 9.9 fL (7.4-10.4); MONOCYTES 5.6 % (2-11); NEUTROPHILS 76.4 % (40-80); PLATELET COUNT 292 10x3/uL (130-400); RBC 3.77 10x6/uL (4.20-6.10); RDW 15.3 % (11.5-14.5); WBC 7.2 10x3/uL (4.8-10.8)
[2017-09-01 06:03] LABS: ANION GAP 13.9 mmol/L (8-16); CALCIUM 8.7 mg/dL (8.5-10.1); CARBON DIOXIDE 23.2 mmol/L (21.0-32.0); CREATININE - SERUM 1.6 mg/dL (0.6-1.3); MAGNESIUM - SERUM 2.1 mg/dL (1.8-2.4); PHOSPHOROUS 3.4 mg/dL (2.5-4.9); URIC ACID 6.4 mg/dL (2.6-7.2)
[2017-09-01 06:27] LABS: POTASSIUM - SERUM 4.1 mmol/L (3.5-5.1)
--- NOTE | 2017-09-01 07:24 | NUR ---
PT'S IV SITE LEAKING, SO IT WAS D/C'D. LOOKED FOR A NEW SITE, BUT UNABLE TO FIND A GOOD LOCATION. REPORTED TO DAY SHIFT NURSE AND SHE WILL ATTEMPT IV OR CALL JHONNY FOR ASSISTANCE IF NEEDED. PT IS IN AGREEMENT WITH THIS PLAN. PT'S UNASYN IS HANGING, BUT HAS NOT BEEN INFUSED YET DUE TO IV ISSUES. DAY SHIFT RN AWARE TO RUN UNASYN AFTER AN IV HAS BEEN RESTARTED.
[2017-09-01 08:00] VITALS: BP 161/62
--- NOTE | 2017-09-01 09:58 | NUR ---
22 GUAGE X2 STICKS PIV INITIATED VIA L.FA. DRSG CDI DATED AND SWAB CAPS IN USE. INITIATED IVPB. PT SITTING UP IN BED RESTING QUIETLY WITH AT BEDSIDE. NO CURRENT NEEDS. WILL CPOC.
--- NOTE | 2017-09-01 11:20 | NUR ---
FSBS 146 NO COVERAGE REQUIRED PER SS INSULIN. LEVAQUIN IVPB INITIATED PT RESTING IN BED WITH AT BEDSIDE, PT DENIES ANY CURRENT NEEDS AT THIS TIME. CL IN REACH. WILL CPOC.
[2017-09-01 11:51] VITALS: BP 161/54
--- NOTE | 2017-09-01 14:26 | NUR ---
PROVIDED PT WITH PRN PAIN MEDICATION REQUESTED. PT SITTING UP IN BED VISITING WITH HIS AND DENIES ANY FURTHER NEEDS AT THIS TIME. CL IN REACH, BED IN LOWEST, SIDE RAILS X2. WILL CPOC.
[2017-09-01 17:26] VITALS: BP 117/44
--- NOTE | 2017-09-01 17:41 | NUR ---
Patient Name: SUGAR LIVE Admission Status: ER Accout number: [id number] Admission Date: 08-25-2017 : 1945 Admission Diagnosis:SHORTNESS OF BREATH Attending: MAYO MELARA Current LOS: 7 Anticipated DC Date: 09-02-2017 Planned Disposition: Home Primary Insurance: MEDICARE A & B Discharge Planning Comments: * Is the patient Alert and Oriented? Yes 0 * How many steps to enter\exit or inside your home? NONE 0 * PCP DR. SY 0 * Pharmacy [place] 0 * Preadmission Environment Home with Family 0 * ADLs Independent 0 * Equipment Other Wheelchair 0 * Other Equipment ROQUE SCOOTER NO MEDICAL EQUIPMENT PROVIDER PREFERENCE 0 * List name and contact numbers for known caregivers / representatives who currently or will assist patient after discharge: JEAN LIVE, SPOUSE, 0 * Community resources currently utilized None 0 * Please name any agencies selected above. NONE 0 * Additional services required to return to the preadmission environment? No 0 * Can the patient safely return to the preadmission environment? Yes 0 * Has this patient been hospitalized within the prior 30 days at any hospital? No 0 CM RECEIVED ORDER FOR OXYGEN TESTING AND NEBULIZER. CM MET WITH PT AND SPOUSE IN ROOM TO DISCUSS DISCHARGE PLANNING AND NEEDS. PT REPORTS LIVING AT HOME INDEPENDENTLY WITH SPOUSE. PT HAS NO WHEELCHAIR AND ROQUE SCOOTER WITH NO MEDICAL EQUIPMENT PROVIDER PREFERENCE. PT HAS NO OUTSIDE SERVICES ASSISTING IN THE HOME. CM DISCUSSED AVAILABILITY OF HOME HEALTH, REHAB SERVICES AND MEDICAL EQUIPMENT. PT DENIES DISCHARGE NEEDS, REFUSED OXYGEN, WILL ACCEPT NEBULIZER FOR HOME DELIVERY, REPORTS HIS WILL PICK HIM UP FOR DISCHARGE HOME. IMPORTANT MESSAGE FROM MED[employer]ARE PROVIDED AND EXPLAINED CM FAXED REFERRAL FOR NEBULIZER TO [facility], , REQUESTED HOME DELIVERY AT [address] [place]. [address]. Caddy: Juanito Phillips
--- NOTE | 2017-09-01 18:12 | NUR ---
PROVIDED PT WITH PRN PAIN MEDICATION REQUESTED. PT LYING BACK IN BED WATCHING TV AND DENIES ANY FURTHER NEEDS AT THIS TIME. CL IN REACH, BED IN LOWEST, SIDE RAILS X2. WILL PASS REPORT TO WOVEN WOOD SHADE ASSEMBLER NURSE.
--- NOTE | 2017-09-01 20:15 | NUR ---
PT RESTING COMFORTABLY, EYES CLOSED, RESPIRATIONS EVEN AND UNLABORED. CONTINUE TO MONITOR CLOSELY. BED LOW, CALL LIGHT IN REACH, SIDE RAILS X 2, HOB 30 DEGREES.
[2017-09-01 22:49] VITALS: BP 162/56
--- NOTE | 2017-09-01 23:58 | NUR ---
PT HAS HAD A DIFFICULT EVENING DEMONSTRATING MILD CONFUSION AT TIMES, INCREASED AGITATION, AND SEVERE NAUSEA WITH PROJECTILE VOMITING. PT HAS STATED SEVERAL TIMES THAT HE DOES NOT KNOW WHERE HE IS, AND THAT HE JUST WOKE UP IN THE MIDDLE OF HIS ROOM. PT IS EASILY REORIENTED, AND NAUSEA HAS SUBSIDED AFTER VOMITING AND PRN ZOFRAN. PTS EMESIS INCLUDED LARGE CHUNKS OF FOOD, IN WHICH PT STATES WAS HIS BURGER FROM DINNER. PT IS CURRENTLY RESTING COMFORTABLY AT THIS TIME. WILL CONTINUE TO MONITOR CLOSELY. BED LOW, CALL LIGHT IN REACH, TRAPEZE BAR WITHIN EASY REACH TO PT, URINAL AT BEDSIDE, PT TURNED TO LEFT SIDE WITH PILLOW UNDER HIS BUTTOCKS TO REDUCE PRESSURE TO HIS HEALING WOUND. LEFT LEG IS ELEVATED ON PILLOW WITH HEEL BRIDGED AT THIS TIME. CONTINUE TO MONITOR CLOSELY.
[2017-09-02] VITALS: BP 170/65
--- NOTE | 2017-09-02 04:59 | NUR ---
PT CURRENTLY RESTING COMFORTABLY, HOWEVER, PT HAS HAD ANOTHER EPISODE OF SPONTANEOUS AND PROJECTILE VOMITING, STATING THAT HIS STOMACH HURTS AND THE PRN ZOFRAN GIVEN EARLIER ONLY HELPED FOR A SMALL AMOUNT OF TIME. THIS SECOND OCCURRENCE WAS AT 02:00, IN WHICH IT WAS TOO EARLY TO GIVE PT ANY MORE ZOFRAN. I DID GIVE PT A LEMON MESCALERO APACHE SODA AND SALTINE CRACKERS, AND HAVE ENCOURAGED PT TO EAT/DRINK ONLY CLEAR LIQUIDS AT THIS TIME. PT HAS AGREED TO DO SO. PT IS LYING IN BED, EYES CLOSED, RESPIRATIONS EVEN AND UNLABORED, TALKING IN HIS SLEEP FREQUENTLY. PT IS EASILY ROUSABLE TO VERBAL STIMULI. CONTINUE TO MONITOR PT CLOSELY. BED LOW, CALL LIGHT IN REACH, SIDE RAILS X 2, HOB 30 DEGREES.
--- NOTE | 2017-09-02 05:51 | NUR ---
PT WAS ABLE TO USE THE BEDPAN AND HAD A MODERATE AMOUNT OF LOOSE STOOL WITH UNDIGESTED FOOD PARTICLES PRESENT. I HAVE NOTICED THAT EACH TIME I HAVE STARTED PTS AMPICILLIN, PT BECOMES ILL WITH NAUSEA/VOMITING AND NOW DIARRHEA. WILL HOLD THE LATEST BAG OF AMPICILLIN UNTIL FURTHER NOTICE. WILL NOTIFY DAY SHIFT ALSO.
[2017-09-02 06:28] LABS: BASOPHILS 0.1 % (0-2); EOSINOPHILS 0 % (0-7); HEMATOCRIT 39.6 % (42.0-54.0); HEMOGLOBIN 12.4 g/dL (13.5-17.5); IMMATURE GRANULOCYTES 3.9 % (0-5); LYMPHOCYTES 3.2 % (15-50); MCH 28.8 pg (26.0-34.0); MCHC 31.3 g/dL (31.0-37.0); MCV 92.1 fL (80.0-100.0); MEAN PLATELET VOLUME 9.8 fL (7.4-10.4); MONOCYTES 3.3 % (2-11); NEUTROPHILS 89.5 % (40-80); PLATELET COUNT 297 10x3/uL (130-400); RDW 15.6 % (11.5-14.5)
[2017-09-02 06:34] LABS: WBC 10.4 10x3/uL (4.8-10.8)
[2017-09-02 06:59] LABS: ANION GAP 15.4 mmol/L (8-16); CALCIUM 9.1 mg/dL (8.5-10.1); CARBON DIOXIDE 25.7 mmol/L (21.0-32.0); CREATININE - SERUM 1.6 mg/dL (0.6-1.3); POTASSIUM - SERUM 4.1 mmol/L (3.5-5.1)
[2017-09-02 08:00] VITALS: BP 158/62
--- NOTE | 2017-09-02 10:41 | NUR ---
ASSESSMENT COMPLETED. TELEMERTY SHOWS NSR. LEFT FA SL. PT IS CONFUSED AT TIMES. RIGHT BKA. PT HAS DIARRHEA. STOOL SAMPLE SENT. WILL MONITOR
--- NOTE | 2017-09-02 11:02 | NUR ---
RESTING QUIETLY EYES CLOSED RESP UNLABORED NAD NOTED PT IN CONTACT ISOLATION FOR CDT WILL CONTINUE TO MONITOR
[2017-09-02 12:00] VITALS: BP 171/66
[2017-09-02] MEDS ORDERED: ULORIC40 MG PO (12:15)
[2017-09-02] MEDS ORDERED: LEVAQUIN500 MG PO (12:16)
[2017-09-02] MEDS ORDERED: PREDNISONE10 MG PO (12:16)
[2017-09-02] MEDS ORDERED: FLAGYL500 MG PO (12:20)
[2017-09-02] MEDS ORDERED: IPRAT-ALBUT 0.5-3 ML UPD (14:32)
--- NOTE | 2017-09-02 14:36 | NUR ---
LYING QUIETLY. NO NEEDS VOICED. SR UP WITH CALL LIGHT IN REACH
--- NOTE | 2017-09-02 15:26 | NUR ---
Patient Name: SUGAR LIVE Encounter No: [id number] : 1945 Primary Insurance: MEDICARE A & B Anticipated DC Date: 09-02-2017 Planned Disposition: Home DCP follow-up note: CM CALLED [facility], , SPOKE TO ELSY WHO WILL BE PROCESSING ORDER THAT HE RECEIVED LAST NIGHT AND WILL ARRANGE HOME DELIVERY OF NEBULIZER WITH PT AT HOME. PT ADVISED, NOT FURHTER NEEDS IDENTIFIED. SPOUSE TO TRANSPORT HOME TODAY. Juanito Phillips, CASE MANAGEMENT
[2017-09-02 16:00] VITALS: BP 156/55
[2017-09-02 21:24] VITALS: BP 146/74
[2017-09-03 01:40] VITALS: BP 149/52
[2017-09-03 04:00] VITALS: BP 162/55
[2017-09-03 06:51] LABS: BASOPHILS 0.2 % (0-2); EOSINOPHILS 0.2 % (0-7); HEMATOCRIT 35.7 % (42.0-54.0); HEMOGLOBIN 11.3 g/dL (13.5-17.5); IMMATURE GRANULOCYTES 4.2 % (0-5); LYMPHOCYTES 13.6 % (15-50); MCHC 31.7 g/dL (31.0-37.0); MCV 91.8 fL (80.0-100.0); MEAN PLATELET VOLUME 9.8 fL (7.4-10.4); MONOCYTES 6.8 % (2-11); PLATELET COUNT 265 10x3/uL (130-400); RBC 3.89 10x6/uL (4.20-6.10)
[2017-09-03 07:09] LABS: ANION GAP 11.7 mmol/L (8-16); CALCIUM 8.3 mg/dL (8.5-10.1); CARBON DIOXIDE 26.3 mmol/L (21.0-32.0); CREATININE - SERUM 1.4 mg/dL (0.6-1.3); MAGNESIUM - SERUM 1.9 mg/dL (1.8-2.4); PHOSPHOROUS 3.3 mg/dL (2.5-4.9)
[2017-09-03 07:19] LABS: WBC 5.5 10x3/uL (4.8-10.8)
--- NOTE | 2017-09-03 07:25 | NUR ---
ASSESSMENT COMPLETED. TELEMERTY SHOWS SR. PT HAS NO IV. TO BE DISCHARGED TODAY. DENIES ANY NEEDS.
--- NOTE | 2017-09-03 07:30 | NUR ---
RESTING QUIETLY IN BED EYES CLOSED RESP UNLABORED NAD NOTED
[2017-09-03 08:42] VITALS: BP 157/59
--- NOTE | 2017-09-03 10:27 | NUR ---
PT DISCHARGED. TO PRIVATE CAR PER SCOOTER.
== END 2017-09-03 10:31 | disposition home or self-care (01) | DRG 177 ==
LOC: D.ER 13:57 → D.M2 15:31
PROVIDERS: Emergency Medicine; Internal Medicine Nephrology; ADMIT Family Medicine
DX: J69.0 Pneumonitis due to inhalation of food and vomit (principal); J96.01 Acute respiratory failure with hypoxia; G93.41 Metabolic encephalopathy; R53.2 Functional quadriplegia; I13.0 Hypertensive heart and chronic kidney disease with heart failure and stage 1 through stage 4 chronic kidney disease, or unspecified chronic kidney disease; J44.1 Chronic obstructive pulmonary disease with (acute) exacerbation; N17.9 Acute kidney failure, unspecified; M62.82 Rhabdomyolysis; L03.116 Cellulitis of left lower limb; A04.72 Enterocolitis due to Clostridium difficile, not specified as recurrent; I50.9 Heart failure, unspecified; N18.3 Chronic kidney disease, stage 3 (moderate); E11.22 Type 2 diabetes mellitus with diabetic chronic kidney disease; I25.10 Atherosclerotic heart disease of native coronary artery without angina pectoris; I73.9 Peripheral vascular disease, unspecified; E86.0 Dehydration; M10.9 Gout, unspecified; E11.65 Type 2 diabetes mellitus with hyperglycemia; D63.1 Anemia in chronic kidney disease; Z89.611 Acquired absence of right leg above knee; Z87.891 Personal history of nicotine dependence

== ENCOUNTER 2017-10-03 14:08 | Emergency (ER) | payer MEDICARE, OTHER ==
[2017-08-26 13:16] VITALS: BMI 33.9
[~2017-10-03 14:08] MED LIST changes: +DILAUDID4 MG PO; +FLAGYL500 MG PO; +LEVAQUIN500 MG PO; +PREDNISONE10 MG PO; +ULORIC40 MG PO
== END 2017-10-03 16:13 | disposition home or self-care (01) ==
LOC: D.ER 14:08
DX: R79.89 Other specified abnormal findings of blood chemistry (principal); R06.02 Shortness of breath; J44.9 Chronic obstructive pulmonary disease, unspecified; I10 Essential (primary) hypertension

== ENCOUNTER 2017-12-09 08:40 | Emergency (ER) | payer MEDICARE, OTHER ==
[2017-08-26 13:16] VITALS: BMI 33.9
== END 2017-12-09 10:48 | disposition home or self-care (01) ==
LOC: D.ER 08:40
DX: S00.81XA Abrasion of other part of head, initial encounter (principal); W06.XXXA Fall from bed, initial encounter; Y93.89 Activity, other specified; Y92.013 Bedroom of single-family (private) house as the place of occurrence of the external cause; S01.81XA Laceration without foreign body of other part of head, initial encounter

== ENCOUNTER 2017-12-26 09:44 | Inpatient (IN) | payer MEDICARE, OTHER ==
[~2017-12-26] VITALS: Ht 182.9 cm; Wt 122.8 kg
--- NOTE | ~2017-12-26 | CN ---
PATIENT NAME:SUGAR LIVE MEDICAL RECORD: [id number] : [birth year] LOCATION:D.M2 D.2126 ADMIT DATE: 12/26/17 ACCOUNT: [id number] CONSULTING PHYSICIAN: HALIE RAYA MD REFERRING PHYSICIAN: VANESSA ALONSO MD DATE OF CONSULTATION: 12/27/2017 CONSULT REQUESTING PHYSICIAN: Vanessa Alonso MD REASON FOR CONSULTATION: COPD. HISTORY OF PRESENT ILLNESS: Mr. Live is a 72-year-old gentleman who has a history of COPD. The patient came into the ER with the erythema and severe pain in the left lower extremity. He has ischemic leg. The patient was seen by Dr. Silverio and he is suggesting left above-knee amputation. According to the patient and his , he has no shortness of breath, no coughing, no wheezing. He was a bit breathless last night, but he was sedated with the pain medication. REVIEW OF SYSTEMS: Mainly in the history of present illness. PAST MEDICAL HISTORY: 1. COPD. 2. History of pneumonia. 3. Hypertension. 4. Hyperlipidemia. 5. Chronic kidney disease. 6. Peripheral vascular disease. PAST SURGICAL HISTORY: 1. He is status post right above-knee amputation in May 2016. 2. Cholecystectomy. 3. Right above-knee amputation. 4. Shoulder surgery. ALLERGIES: HE IS ALLERGIC TO IV DYE. MEDICATIONS: On [employer] was reviewed. PERSONAL AND SOCIAL HISTORY: The patient is and he lives with his . He is a nonsmoker, nondrinker. FAMILY HISTORY: Noncontributory. PHYSICAL EXAMINATION: GENERAL: The patient is lying comfortable in bed. He is not in acute distress. VITAL SIGNS: The blood pressure is 126/56, pulse is 80, respirations 20, temperature 98, and SPO2 is 91% on room air. HEENT: Conjunctivae pink, sclerae nonicteric. NECK: Supple, no JVD. CHEST: The chest excursion is minimal on both sides, no wheeze, no rales. HEART: Rhythm regular, normal sound, no murmur. ABDOMEN: Soft. Bowel sounds present. No hepatosplenomegaly. RECTAL: Deferred. EXTREMITIES: There is cyanosis of the left lower extremity. SKIN: There is absent pulses. CONSULT REPORT [id number] MARIA T,USGAR RAY CENTRAL NERVOUS SYSTEM: The patient is awake and alert. There is no obvious cranial nerve abnormality. LABORATORY DATA: CBC: WBC was 11.2 that has been improved to 6.4, hemoglobin 12.2, hematocrit 40.2 and the platelet count is 184. ABG on admission, the pH was 7.34, pCO2 was 55.8, the pO2 was 87. IMPRESSION: 1. Acute hypercarbic respiratory failure, most likely secondary to narcotics and pain medication, improved. 2. Chronic obstructive pulmonary disease without exacerbation. 3. History of left ischemic leg secondary to peripheral vascular disease. 4. Leukocytosis that has been improved. 5. Coronary artery disease. 6. Congestive heart failure. RECOMMENDATIONS: Albuterol/ipratropium nebulizer p.r.n., supplemental oxygen is required, we will follow closely if the patient goes for the left above-knee amputation. Dr. Alonso thank you for involving me in the care of Mr. Live. TRANSINT:[id number] Voice Confirmation ID: [id number] DOCUMENT ID: [id number] HALIE RAYA MD at 1340 CC: [id number] DICTATION DATE: 12/27/17 1748 SNOW RANGER: 12/28/17 0058 DIS IN 01/03/[id number] [place] [address]
--- NOTE | ~2017-12-26 | OP ---
PATIENT NAME: SUGAR LIVE MEDICAL RECORD: [id number] :41 LOCATION:D.M2 D.2126 ADMISSION DATE:12/26/17 SURGEON: ANA MARIA ANTUNEZ MD DATE OF OPERATION: 12/29/2017 PREOPERATIVE DIAGNOSIS: Terminal ischemia of the left lower extremity. POSTOPERATIVE DIAGNOSIS: Terminal ischemia of the left lower extremity. PROCEDURE: Left above-knee amputation. SURGEON: Ana Maria Antunez MD ANESTHESIA: General. INTRAOPERATIVE COMPLICATIONS: None. SUMMARY OF PATHOLOGIC FINDINGS: The patient had severe plaques in the femoral artery consistent with preoperative diagnosis; however, I do think there was plenty of collateral blood flow to heal this AKA. 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 I have previously done an amputation on his right leg, which was complicated by multiple infections. He eventually healed from that and presented to the Emergency Department 3 days ago. Vascular surgery was consulted and made the determination that essentially nothing could be done. At presentation, his foot was already cold and blue. OPERATIVE SUMMARY IN DETAIL: After obtaining the appropriate preoperative orthopedic surgery consent as well as anesthetic consultation, evaluation and clearance, the patient was brought to the operating room and placed on the operating table in supine position. After general laryngeal mask airway was administered, the patient's left lower extremity was prepped and draped in a routine sterile fashion. Planned incision, fishmouth, was drawn out on the leg. An incision was made circumferentially as planned. Dissection was carried down using electrocautery to minimize blood loss. Dissection was carried down through the quad to the femur itself. The femoral artery was then identified, clamped, and ligated and the femur itself was cut using a power saw. At this point, the amputation knife was then used to create the posterior flap. All small bleeders were coagulated. All large bleeders were clamped and tied with very minimal blood loss. The wound was copiously irrigated and closed with #1 Vicryl followed by 2-0 Vicryl and skin evelio. Sterile dressings were applied. The patient was awakened, taken to recovery room in stable condition. All final needle and sponge counts were correct. TRANSINT:[id number] Voice Confirmation ID: [id number] DOCUMENT ID: [id number] ANA MARIA ANTUNEZ MD at 0881 CC: [id number] DICTATION DATE: 12/29/171913 ASSOCIATE DESIGNER: 12/29/17 2259 ADM IN [facility] [address] [id number]
[2017-12-26 10:29] LABS: BASOPHILS 0.2 % (0-2); EOSINOPHILS 0.4 % (0-7); HEMATOCRIT 46.5 % (42.0-54.0); HEMOGLOBIN 14.3 g/dL (13.5-17.5); IMMATURE GRANULOCYTES 0.2 % (0-5); LYMPHOCYTES 7.5 % (15-50); MCH 28.4 pg (26.0-34.0); MCHC 30.8 g/dL (31.0-37.0); MCV 92.4 fL (80.0-100.0); MEAN PLATELET VOLUME 10.3 fL (7.4-10.4); MONOCYTES 6.6 % (2-11); NEUTROPHILS 85.1 % (40-80); RBC 5.03 10x6/uL (4.20-6.10); RDW 15.9 % (11.5-14.5); WBC 11.2 10x3/uL (4.8-10.8)
[2017-12-26 10:32] LABS: PLATELET COUNT 208 10x3/uL (130-400)
[2017-12-26 10:49] LABS: APTT 27.6 SECONDS (22.8-39.4); INR 0.98 (0.85-1.17); PROTIME 12.6 SECONDS (11.6-15.0)
[2017-12-26 10:50] LABS: ALBUMIN 3.2 g/dL (3.4-5.0); ALKALINE PHOSPHATASE 60 U/L (46-116); ALT (SGPT) 17 U/L (10-68); CALC OSMOLALITY 291 mosm/kg (275-300); CALCIUM 9.6 mg/dL (8.5-10.1); CHLORIDE - SERUM 102 mmol/L (98-107); D-DIMER-QUANTITATIVE 0.7 ug/mLFEU (0.20-0.54); GLUCOSE 161 mg/dL (74-106); POTASSIUM - SERUM 4.4 mmol/L (3.5-5.1); PROTEIN - SERUM 7.8 g/dL (6.4-8.2); SODIUM 139 mmol/L (136-145); UREA NITROGEN 44 mg/dL (7-18); eGFR NON AFRICAN AMERICAN 35 mL/min (90-120)
[2017-12-26 11:27] LABS: CKMB 0.3 U/L (0.0-3.6); CREATINE KINASE 118 UL (21-232); PRO BNP 1 pg/mL (0-125); TROPONIN-I < 0.017 ng/mL (0.000-0.060)
[2017-12-26 12:43] LABS: PLT FUNCT.(P2Y12) PLAVIX 179 PRU (194-418)
[2017-12-26] MEDS ORDERED: HYZAAR 100-25 T1 TAB PO (16:50)
[2017-12-26] MEDS ORDERED: TRAZODONE HCL50 MG PO (16:53)
[2017-12-26 17:06] VITALS: BP 103/60; BMI 35.3
[2017-12-26 20:00] VITALS: BP 180/84
[2017-12-26 21:11] LABS: CKMB 3.7 U/L (0.0-3.6); CREATINE KINASE 484 UL (21-232)
[2017-12-27 05:59] LABS: BASOPHILS 0.3 % (0-2); EOSINOPHILS 0.5 % (0-7); HEMATOCRIT 40.2 % (42.0-54.0); HEMOGLOBIN 12.2 g/dL (13.5-17.5); IMMATURE GRANULOCYTES 0.2 % (0-5); LYMPHOCYTES 20.4 % (15-50); MCH 28.2 pg (26.0-34.0); MCHC 30.3 g/dL (31.0-37.0); MCV 93.1 fL (80.0-100.0); MONOCYTES 8.8 % (2-11); NEUTROPHILS 69.8 % (40-80); PLATELET COUNT 184 10x3/uL (130-400); RBC 4.32 10x6/uL (4.20-6.10)
[2017-12-27 06:00] VITALS: BP 142/62
[2017-12-27 06:09] LABS: WBC 6.4 10x3/uL (4.8-10.8)
[2017-12-27 06:31] LABS: ALBUMIN 2.7 g/dL (3.4-5.0); ANION GAP 13.2 mmol/L (8-16); BILIRUBIN - TOTAL 0.3 mg/dL (0.2-1.3); CALCIUM 8.3 mg/dL (8.5-10.1); CARBON DIOXIDE 28.7 mmol/L (21.0-32.0); CREATININE - SERUM 2.1 mg/dL (0.6-1.3); POTASSIUM - SERUM 3.9 mmol/L (3.5-5.1); PROTEIN - SERUM 6.8 g/dL (6.4-8.2)
[2017-12-27 08:46] VITALS: BP 157/77
[2017-12-27 12:20] VITALS: BMI 35.1
[2017-12-27 12:54] VITALS: BP 140/47
[2017-12-27 16:11] VITALS: BP 126/56
[2017-12-27 17:07] VITALS: Ht 182.9 cm; Wt 122.8 kg
[2017-12-27 20:00] VITALS: BP 141/58
[2017-12-28] VITALS: BP 127/53
[2017-12-28 04:50] LABS: BASOPHILS 0.6 % (0-2); EOSINOPHILS 1.1 % (0-7); HEMOGLOBIN 11.5 g/dL (13.5-17.5); IMMATURE GRANULOCYTES 0.2 % (0-5); LYMPHOCYTES 22.7 % (15-50); MCH 27.9 pg (26.0-34.0); MCHC 30.3 g/dL (31.0-37.0); MCV 92.2 fL (80.0-100.0); MEAN PLATELET VOLUME 10.9 fL (7.4-10.4); MONOCYTES 12.1 % (2-11); NEUTROPHILS 63.3 % (40-80); PLATELET COUNT 181 10x3/uL (130-400); RBC 4.12 10x6/uL (4.20-6.10); RDW 15.9 % (11.5-14.5)
[2017-12-28 04:59] LABS: WBC 4.7 10x3/uL (4.8-10.8)
[2017-12-28 05:12] LABS: ALBUMIN 2.5 g/dL (3.4-5.0); ANION GAP 10.9 mmol/L (8-16); BILIRUBIN - TOTAL 0.2 mg/dL (0.2-1.3); CALCIUM 8.4 mg/dL (8.5-10.1); CARBON DIOXIDE 30.7 mmol/L (21.0-32.0); CREATININE - SERUM 1.8 mg/dL (0.6-1.3); POTASSIUM - SERUM 3.6 mmol/L (3.5-5.1); PROTEIN - SERUM 6.7 g/dL (6.4-8.2)
[2017-12-28 05:57] VITALS: BP 169/44
[2017-12-28 09:37] VITALS: BP 137/50
[2017-12-28 11:50] VITALS: BP 136/61
[2017-12-28 16:20] VITALS: BP 153/64
[2017-12-28 20:00] VITALS: BP 163/45
[2017-12-29] VITALS: BP 171/51
[2017-12-29 04:00] VITALS: BP 160/50
[2017-12-29 05:44] LABS: BASOPHILS 0.8 % (0-2); EOSINOPHILS 1.5 % (0-7); HEMATOCRIT 38.9 % (42.0-54.0); IMMATURE GRANULOCYTES 0.4 % (0-5); LYMPHOCYTES 23.1 % (15-50); MCH 28.3 pg (26.0-34.0); MCHC 30.8 g/dL (31.0-37.0); MCV 91.7 fL (80.0-100.0); MEAN PLATELET VOLUME 10.5 fL (7.4-10.4); MONOCYTES 9.1 % (2-11); NEUTROPHILS 65.1 % (40-80); PLATELET COUNT 191 10x3/uL (130-400); RBC 4.24 10x6/uL (4.20-6.10); RDW 15.6 % (11.5-14.5); WBC 4.8 10x3/uL (4.8-10.8)
[2017-12-29 06:02] LABS: ALBUMIN 2.5 g/dL (3.4-5.0); ANION GAP 13.4 mmol/L (8-16); BILIRUBIN - TOTAL 0.2 mg/dL (0.2-1.3); CALCIUM 8.4 mg/dL (8.5-10.1); CARBON DIOXIDE 28.1 mmol/L (21.0-32.0); CREATININE - SERUM 1.6 mg/dL (0.6-1.3); POTASSIUM - SERUM 3.5 mmol/L (3.5-5.1); PROTEIN - SERUM 6.8 g/dL (6.4-8.2)
[2017-12-29 08:37] VITALS: BP 152/59
[2017-12-29 12:35] VITALS: BP 159/61
[2017-12-29 16:35] VITALS: BP 159/54
[2017-12-29 20:12] VITALS: BP 169/91
[2017-12-30 02:32] VITALS: BP 166/70
[2017-12-30 06:23] VITALS: BP 157/89
[2017-12-30 06:35] LABS: BASOPHILS 0.5 % (0-2); EOSINOPHILS 0.2 % (0-7); HEMATOCRIT 39.9 % (42.0-54.0); HEMOGLOBIN 12.4 g/dL (13.5-17.5); IMMATURE GRANULOCYTES 0.2 % (0-5); LYMPHOCYTES 11.4 % (15-50); MCH 28.2 pg (26.0-34.0); MCHC 31.1 g/dL (31.0-37.0); MCV 90.7 fL (80.0-100.0); MEAN PLATELET VOLUME 10.7 fL (7.4-10.4); MONOCYTES 8.6 % (2-11); NEUTROPHILS 79.1 % (40-80); RDW 15.5 % (11.5-14.5)
[2017-12-30 06:39] LABS: PLATELET COUNT 233 10x3/uL (130-400); WBC 6.6 10x3/uL (4.8-10.8)
[2017-12-30 06:57] LABS: ALBUMIN 2.8 g/dL (3.4-5.0); ANION GAP 14.3 mmol/L (8-16); BILIRUBIN - TOTAL 0.4 mg/dL (0.2-1.3); CALCIUM 9.3 mg/dL (8.5-10.1); CARBON DIOXIDE 26.6 mmol/L (21.0-32.0); CREATININE - SERUM 1.4 mg/dL (0.6-1.3); POTASSIUM - SERUM 3.9 mmol/L (3.5-5.1); PROTEIN - SERUM 7.3 g/dL (6.4-8.2)
[2017-12-30 07:39] VITALS: BP 196/65
[2017-12-30 11:56] VITALS: BP 178/65
[2017-12-30 15:32] VITALS: BP 188/66
[2017-12-30 20:00] VITALS: BP 156/61
[2017-12-31] VITALS: BP 150/60
[2017-12-31 05:06] LABS: BASOPHILS 0.1 % (0-2); EOSINOPHILS 0 % (0-7); HEMATOCRIT 41.5 % (42.0-54.0); IMMATURE GRANULOCYTES 0.5 % (0-5); LYMPHOCYTES 6.3 % (15-50); MCH 28.5 pg (26.0-34.0); MCHC 31.3 g/dL (31.0-37.0); MEAN PLATELET VOLUME 10.4 fL (7.4-10.4); MONOCYTES 4.4 % (2-11); NEUTROPHILS 88.7 % (40-80); PLATELET COUNT 219 10x3/uL (130-400); RBC 4.56 10x6/uL (4.20-6.10); RDW 15.7 % (11.5-14.5)
[2017-12-31 05:09] LABS: WBC 8.5 10x3/uL (4.8-10.8)
[2017-12-31 05:17] LABS: ALBUMIN 2.8 g/dL (3.4-5.0); ANION GAP 15.7 mmol/L (8-16); BILIRUBIN - TOTAL 0.53 mg/dL (0.2-1.3); CALCIUM 9.5 mg/dL (8.5-10.1); CARBON DIOXIDE 24.5 mmol/L (21.0-32.0); CREATININE - SERUM 1.5 mg/dL (0.6-1.3); POTASSIUM - SERUM 4.2 mmol/L (3.5-5.1); PROTEIN - SERUM 7.9 g/dL (6.4-8.2)
[2017-12-31 08:26] VITALS: BP 196/69
[2017-12-31 11:13] VITALS: BP 192/79
[2017-12-31 20:54] VITALS: BP 183/64
[2018-01-01] VITALS (7 sets, daily range): BP systolic 137–185; BP diastolic 51–70
[2018-01-01 05:44] LABS: BASOPHILS 0 % (0-2); EOSINOPHILS 0 % (0-7); HEMATOCRIT 39.1 % (42.0-54.0); HEMOGLOBIN 12.5 g/dL (13.5-17.5); IMMATURE GRANULOCYTES 0.4 % (0-5); LYMPHOCYTES 7.4 % (15-50); MCH 28.2 pg (26.0-34.0); MEAN PLATELET VOLUME 10.5 fL (7.4-10.4); MONOCYTES 6.3 % (2-11); NEUTROPHILS 85.9 % (40-80); PLATELET COUNT 229 10x3/uL (130-400); RBC 4.43 10x6/uL (4.20-6.10); RDW 15.2 % (11.5-14.5); WBC 9.2 10x3/uL (4.8-10.8)
[2018-01-01 05:46] LABS: MCV 88.3 fL (80.0-100.0)
[2018-01-01 06:16] LABS: ALBUMIN 2.5 g/dL (3.4-5.0); ANION GAP 16.6 mmol/L (8-16); BILIRUBIN - TOTAL 0.26 mg/dL (0.2-1.3); CALCIUM 9.5 mg/dL (8.5-10.1); CARBON DIOXIDE 22.2 mmol/L (21.0-32.0); CREATININE - SERUM 1.6 mg/dL (0.6-1.3); POTASSIUM - SERUM 3.8 mmol/L (3.5-5.1); PROTEIN - SERUM 7.6 g/dL (6.4-8.2)
[2018-01-01 15:41] LABS: APPEARANCE CLEAR (CLEAR); BILIRUBIN NEGATIVE (NEGATIVE); COLOR YELLOW (YELLOW); GLUCOSE NEGATIVE (NEGATIVE); KETONE NEGATIVE (NEGATIVE); NITRITE NEGATIVE (NEGATIVE); PROTEIN 2+ mg/dL (NEGATIVE); SPECIFIC GRAVITY 1.025 (1.005-1.020); UROBILINOGEN NORMAL (NORMAL)
[2018-01-01 15:43] LABS: WHITE CELLS - URINE 0-5 /hpf (0-5)
[2018-01-01 15:44] LABS: BACTERIA FEW /hpf (NONE SEEN); EPITHELIAL CELLS 0-5 /hpf (0-5)
[2018-01-02 05:55] VITALS: BP 199/74
[2018-01-02 08:38] VITALS: BP 180/66
[2018-01-02 11:24] VITALS: BP 176/97
[2018-01-02 16:05] VITALS: BP 173/59
[2018-01-02 20:15] VITALS: BP 176/69
[2018-01-03 00:30] VITALS: BP 171/71
[2018-01-03 05:19] LABS: BASOPHILS 0 % (0-2); EOSINOPHILS 0 % (0-7); HEMATOCRIT 37.4 % (42.0-54.0); HEMOGLOBIN 11.8 g/dL (13.5-17.5); IMMATURE GRANULOCYTES 1.4 % (0-5); LYMPHOCYTES 8.9 % (15-50); MCH 27.8 pg (26.0-34.0); MCHC 31.6 g/dL (31.0-37.0); MCV 88.2 fL (80.0-100.0); MEAN PLATELET VOLUME 9.9 fL (7.4-10.4); MONOCYTES 6.5 % (2-11); NEUTROPHILS 83.2 % (40-80); RBC 4.24 10x6/uL (4.20-6.10); RDW 14.8 % (11.5-14.5)
[2018-01-03 05:27] LABS: PLATELET COUNT 284 10x3/uL (130-400)
[2018-01-03 05:50] LABS: ANION GAP 16.5 mmol/L (8-16); CALCIUM 8.4 mg/dL (8.5-10.1); CARBON DIOXIDE 21.2 mmol/L (21.0-32.0); CREATININE - SERUM 1.4 mg/dL (0.6-1.3); POTASSIUM - SERUM 3.7 mmol/L (3.5-5.1)
[2018-01-03 06:24] VITALS: BP 208/85
[2018-01-03 09:29] VITALS: BP 192/66
[2018-01-03] MEDS ORDERED: LEVAQUIN500 MG PO (11:10)
[2018-01-03] MEDS ORDERED: PREDNISONE10 MG PO (11:19)
[2018-01-03 12:23] VITALS: BP 145/72
== END 2018-01-03 17:05 | DRG 239 ==
LOC: D.ER 09:44 → D.EDHOLD 13:37 → D.M2 13:37
PROVIDERS: Family Medicine; Internal Medicine Nephrology; Orthopaedic Surgery
PROC: 0Y6D0Z3 Detachment at Left Upper Leg, Low, Open Approach (ICD-10-PCS; principal; 2017-12-29 15:00)
DX: E11.51 Type 2 diabetes mellitus with diabetic peripheral angiopathy without gangrene (principal); J96.02 Acute respiratory failure with hypercapnia; R53.2 Functional quadriplegia; N17.9 Acute kidney failure, unspecified; I13.0 Hypertensive heart and chronic kidney disease with heart failure and stage 1 through stage 4 chronic kidney disease, or unspecified chronic kidney disease; D63.8 Anemia in other chronic diseases classified elsewhere; E11.22 Type 2 diabetes mellitus with diabetic chronic kidney disease; I50.9 Heart failure, unspecified; E78.5 Hyperlipidemia, unspecified; Z89.611 Acquired absence of right leg above knee; I25.10 Atherosclerotic heart disease of native coronary artery without angina pectoris; J44.9 Chronic obstructive pulmonary disease, unspecified; N18.2 Chronic kidney disease, stage 2 (mild); R41.0 Disorientation, unspecified

== ENCOUNTER 2018-02-10 11:05 | Inpatient (IN) | payer MEDICARE, OTHER ==
[~2018-02-10] VITALS: Ht 182.9 cm; Wt 107.5 kg
--- NOTE | ~2018-02-10 | OP ---
PATIENT NAME: SUGAR LIVE MEDICAL RECORD: [id number] :41 LOCATION:D.MS [place] ADMISSION DATE:02/10/18 SURGEON: ANA MARIA ANTUNEZ MD DATE OF OPERATION: 02/10/2018 PREOPERATIVE DIAGNOSIS: Superficial left stump infection of the left above-knee amputation stump. POSTOPERATIVE DIAGNOSIS: Osteomyelitis of the left femoral stump with a deep wound. PROCEDURE: Excisional debridement to include skin, subcutaneous tissue, portions of fat, fascia, muscle, and bone. Overall, depth approximately 15 cm with 4 cm x 3 cm. Application of wound VAC. SURGEON: Ana Maria Antunez MD ANESTHESIA: General. INTRAOPERATIVE COMPLICATIONS: None. SUMMARY OF PATHOLOGIC FINDINGS: The patient was indeed found to have a very deep tracking wound and upon a slight curettage of the distal femur, bone was easily removed, extremely worrisome and diagnostic of osteomyelitis. OPERATIVE SUMMARY IN DETAIL: After obtaining the appropriate preoperative orthopedic surgery consent as well as anesthetic consultation, evaluation, and clearance, the patient was brought to the operating room and was placed on the operating table in supine position. After general laryngeal mask administered, the patient's left stump was prepped and draped in routine sterile fashion, generalized evaluation of the wound revealed the above findings. At this point, curettage, scalpel as well as rongeurs were utilized to remove all necrotic-appearing material. The scalpel was then used to scrape out the entire tract as well as completely clean the end of the distal femur. Copious lavage irrigation was then followed by placement of a wound VAC of 125 mmHg with medium intensity on continuous suction. Having completed this, the patient was awakened, taken to recovery in stable condition. All final needle and sponge counts were correct. TRANSINT:[id number] Voice Confirmation ID: [id number] DOCUMENT ID: [id number] ANA MARIA ANTUNEZ MD at 1842 CC: [id number] DICTATION DATE: 02/11/18 1528 DIRECTOR DIGITAL SALES: 02/11/18 1607 ADM IN [facility] [address] [id number]
[~2018-02-10 11:05] MED LIST changes: +TRAZODONE HCL50 MG PO
[2018-02-10] MEDS ORDERED: TRAZODONE HCL50 MG PO (13:37)
[2018-02-10] MEDS ORDERED: ULORIC40 MG PO (13:38)
[2018-02-10] MEDS ORDERED: BACTRIM DS TABL1 TAB PO (13:39)
[2018-02-10] MEDS ORDERED: ROBAXIN500 MG PO (13:40)
[2018-02-10] MEDS ORDERED: FLAGYL500 MG PO (13:40)
[2018-02-10 13:59] VITALS: BP 134/87; BMI 32.2
[2018-02-10 14:10] LABS: BASOPHILS 0.6 % (0-2); EOSINOPHILS 0.7 % (0-7); HEMATOCRIT 34.7 % (42.0-54.0); HEMOGLOBIN 10.4 g/dL (13.5-17.5); LYMPHOCYTES 18.9 % (15-50); MCH 26.9 pg (26.0-34.0); MCV 89.9 fL (80.0-100.0); MEAN PLATELET VOLUME 9.7 fL (7.4-10.4); MONOCYTES 8.7 % (2-11); NEUTROPHILS 70.1 % (40-80); PLATELET COUNT 261 10x3/uL (130-400); RBC 3.86 10x6/uL (4.20-6.10); RDW 16.4 % (11.5-14.5); WBC 6.9 10x3/uL (4.8-10.8)
[2018-02-10 14:17] LABS: ANION GAP 14.3 mmol/L (8-16); CALCIUM 8.7 mg/dL (8.5-10.1); CREATININE - SERUM 2.6 mg/dL (0.6-1.3); POTASSIUM - SERUM 4.3 mmol/L (3.5-5.1)
[2018-02-10 17:53] VITALS: BP 101/62
[2018-02-10 17:59] VITALS: BP 101/62; BMI 32.2
[2018-02-10 20:32] VITALS: BP 91/47
[2018-02-11 00:56] VITALS: BP 95/54
[2018-02-11 04:44] VITALS: BP 135/55
[2018-02-11 05:29] LABS: HEMATOCRIT 33.1 % (42.0-54.0)
[2018-02-11 08:39] VITALS: BP 154/66
[2018-02-11 13:09] VITALS: BP 150/73
[2018-02-11 13:17] VITALS: Ht 182.9 cm; Wt 107.5 kg
[2018-02-11 14:43] LABS: ANION GAP 12.7 mmol/L (8-16); CALCIUM 8.4 mg/dL (8.5-10.1); CARBON DIOXIDE 26.7 mmol/L (21.0-32.0); CREATININE - SERUM 2.4 mg/dL (0.6-1.3); POTASSIUM - SERUM 4.4 mmol/L (3.5-5.1)
[2018-02-11 16:19] VITALS: BP 153/70
[2018-02-11 20:43] VITALS: BP 153/63
[2018-02-12 01:20] VITALS: BP 128/60
[2018-02-12 05:52] VITALS: BP 163/56
[2018-02-12 07:13] LABS: BASOPHILS 0.6 % (0-2); EOSINOPHILS 0.8 % (0-7); HEMATOCRIT 29.9 % (42.0-54.0); HEMOGLOBIN 8.9 g/dL (13.5-17.5); IMMATURE GRANULOCYTES 1.7 % (0-5); LYMPHOCYTES 20.6 % (15-50); MCH 26.8 pg (26.0-34.0); MCHC 29.8 g/dL (31.0-37.0); MCV 90.1 fL (80.0-100.0); MEAN PLATELET VOLUME 9.6 fL (7.4-10.4); MONOCYTES 11.9 % (2-11); NEUTROPHILS 64.4 % (40-80); PLATELET COUNT 241 10x3/uL (130-400); RBC 3.32 10x6/uL (4.20-6.10); RDW 16.6 % (11.5-14.5); WBC 5.2 10x3/uL (4.8-10.8)
[2018-02-12 07:42] LABS: ALBUMIN 2.2 g/dL (3.4-5.0); BILIRUBIN - TOTAL 0.32 mg/dL (0.2-1.3); CALCIUM 8.3 mg/dL (8.5-10.1); CARBON DIOXIDE 29.2 mmol/L (21.0-32.0); CREATININE - SERUM 1.9 mg/dL (0.6-1.3); POTASSIUM - SERUM 4.2 mmol/L (3.5-5.1); PROTEIN - SERUM 6.4 g/dL (6.4-8.2)
[2018-02-12 09:09] VITALS: BP 128/63
[2018-02-12 12:30] VITALS: BP 136/50
[2018-02-12 15:58] VITALS: BP 163/64
[2018-02-12 20:00] VITALS: BP 153/73
[2018-02-13] VITALS: BP 147/60
[2018-02-13 04:05] VITALS: BP 131/54
[2018-02-13 06:11] LABS: BASOPHILS 0.4 % (0-2); HEMATOCRIT 30.9 % (42.0-54.0); HEMOGLOBIN 9.3 g/dL (13.5-17.5); IMMATURE GRANULOCYTES 1.9 % (0-5); LYMPHOCYTES 18.8 % (15-50); MCH 26.8 pg (26.0-34.0); MCHC 30.1 g/dL (31.0-37.0); NEUTROPHILS 68.9 % (40-80); PLATELET COUNT 228 10x3/uL (130-400); RBC 3.47 10x6/uL (4.20-6.10); RDW 16.4 % (11.5-14.5); WBC 5.2 10x3/uL (4.8-10.8)
[2018-02-13 06:40] LABS: ALBUMIN 2.3 g/dL (3.4-5.0); ANION GAP 11.3 mmol/L (8-16); BILIRUBIN - TOTAL 0.29 mg/dL (0.2-1.3); CALCIUM 8.9 mg/dL (8.5-10.1); CARBON DIOXIDE 27.6 mmol/L (21.0-32.0); CREATININE - SERUM 1.5 mg/dL (0.6-1.3); POTASSIUM - SERUM 3.9 mmol/L (3.5-5.1); PROTEIN - SERUM 6.7 g/dL (6.4-8.2); VANCOMYCIN - TROUGH 9.4 ug/mL (10.0-20.0)
[2018-02-13 09:18] VITALS: BP 172/62
[2018-02-13 12:09] VITALS: BP 165/60
[2018-02-13 16:09] VITALS: BP 137/86
[2018-02-13 20:54] VITALS: BP 133/97
[2018-02-14 00:26] VITALS: BP 129/85
[2018-02-14 06:03] VITALS: BP 169/67
[2018-02-14 07:30] LABS: BASOPHILS 0.4 % (0-2); EOSINOPHILS 1.3 % (0-7); HEMATOCRIT 29.4 % (42.0-54.0); HEMOGLOBIN 8.8 g/dL (13.5-17.5); IMMATURE GRANULOCYTES 1.9 % (0-5); LYMPHOCYTES 23.3 % (15-50); MCH 27.1 pg (26.0-34.0); MCHC 29.9 g/dL (31.0-37.0); MCV 90.5 fL (80.0-100.0); MEAN PLATELET VOLUME 9.1 fL (7.4-10.4); MONOCYTES 10.9 % (2-11); NEUTROPHILS 62.2 % (40-80); PLATELET COUNT 227 10x3/uL (130-400); RBC 3.25 10x6/uL (4.20-6.10); RDW 16.8 % (11.5-14.5); WBC 4.7 10x3/uL (4.8-10.8)
[2018-02-14 07:52] LABS: ANION GAP 9.7 mmol/L (8-16); BILIRUBIN - TOTAL 0.23 mg/dL (0.2-1.3); CALCIUM 8.1 mg/dL (8.5-10.1); CREATININE - SERUM 1.4 mg/dL (0.6-1.3); POTASSIUM - SERUM 3.7 mmol/L (3.5-5.1); PROTEIN - SERUM 6.1 g/dL (6.4-8.2); VANCOMYCIN - TROUGH 10.2 ug/mL (10.0-20.0)
[2018-02-14 08:27] VITALS: BP 150/63
[2018-02-14 12:29] VITALS: BP 145/55
[2018-02-14 16:48] VITALS: BP 144/61
[2018-02-14 19:52] VITALS: BP 145/61
[2018-02-15 00:01] VITALS: BP 127/67
[2018-02-15 04:17] VITALS: BP 188/70
[2018-02-15 07:58] LABS: BASOPHILS 0.6 % (0-2); EOSINOPHILS 1.8 % (0-7); HEMATOCRIT 30.5 % (42.0-54.0); HEMOGLOBIN 9.1 g/dL (13.5-17.5); IMMATURE GRANULOCYTES 2.4 % (0-5); LYMPHOCYTES 23.3 % (15-50); MCH 26.8 pg (26.0-34.0); MCHC 29.8 g/dL (31.0-37.0); MCV 89.7 fL (80.0-100.0); MEAN PLATELET VOLUME 9.2 fL (7.4-10.4); MONOCYTES 8.2 % (2-11); NEUTROPHILS 63.7 % (40-80); PLATELET COUNT 234 10x3/uL (130-400); RDW 16.7 % (11.5-14.5); WBC 5.1 10x3/uL (4.8-10.8)
[2018-02-15 08:15] LABS: ANION GAP 13.3 mmol/L (8-16); BILIRUBIN - TOTAL 0.23 mg/dL (0.2-1.3); CALCIUM 8.2 mg/dL (8.5-10.1); CARBON DIOXIDE 23.3 mmol/L (21.0-32.0); CREATININE - SERUM 1.2 mg/dL (0.6-1.3); POTASSIUM - SERUM 3.6 mmol/L (3.5-5.1); VANCOMYCIN - TROUGH 22.8 ug/mL (10.0-20.0)
[2018-02-15 09:15] VITALS: BP 112/75; BP 169/56
[2018-02-15 14:25] VITALS: BP 149/62
[2018-02-15 17:06] VITALS: BP 179/72
[2018-02-15 20:00] VITALS: BP 151/79
[2018-02-16 04:00] VITALS: BP 187/69
[2018-02-16 06:41] LABS: BASOPHILS 0.3 % (0-2); EOSINOPHILS 1.6 % (0-7); HEMATOCRIT 31.6 % (42.0-54.0); HEMOGLOBIN 9.4 g/dL (13.5-17.5); IMMATURE GRANULOCYTES 2.6 % (0-5); LYMPHOCYTES 20.6 % (15-50); MCH 26.9 pg (26.0-34.0); MCHC 29.7 g/dL (31.0-37.0); MCV 90.3 fL (80.0-100.0); MEAN PLATELET VOLUME 9.1 fL (7.4-10.4); NEUTROPHILS 64.9 % (40-80); PLATELET COUNT 267 10x3/uL (130-400); RDW 16.9 % (11.5-14.5); WBC 5.7 10x3/uL (4.8-10.8)
[2018-02-16 07:16] LABS: ANION GAP 13.1 mmol/L (8-16); BILIRUBIN - TOTAL 0.2 mg/dL (0.2-1.3); C-REACTIVE PROTEIN 5.4 mg/dL (0.0-0.9); CALCIUM 8.8 mg/dL (8.5-10.1); CARBON DIOXIDE 25.3 mmol/L (21.0-32.0); CREATININE - SERUM 1.2 mg/dL (0.6-1.3); PROTEIN - SERUM 6.1 g/dL (6.4-8.2)
[2018-02-16 07:18] LABS: POTASSIUM - SERUM 4.4 mmol/L (3.5-5.1)
[2018-02-16 08:40] VITALS: BP 147/70
[2018-02-16 08:42] LABS: ERYTHROCYTE SEDIMENTATION RATE 99 mm/hr (0-20)
[2018-02-16 11:43] VITALS: BP 148/69
[2018-02-16] MEDS ORDERED: ASPIRIN325 MG PO (13:08)
[2018-02-16] MEDS ORDERED: VANCOMYCIN 1 GM/1 G1 IV (13:08)
[2018-02-16] MEDS ORDERED: FLORAJEN3 CAPS460 MG PO (13:08)
[2018-02-16] MEDS ORDERED: COLACE100 MG PO (13:08)
[2018-02-16] MEDS ORDERED: PEPCID40 MG PO (13:09)
[2018-02-16] MEDS ORDERED: ARICEPT5 MG PO (13:09)
[2018-02-16] MEDS ORDERED: HUMALOG 30100 UNITS/ SC (13:10)
[2018-02-16] MEDS ORDERED: HYDROCODONE-APA1 TAB PO (13:12)
== END 2018-02-16 15:00 | disposition short-term general hospital (02) | DRG 498 ==
LOC: D.MS 11:05 → D.OPS 11:05 → D.MS 17:40 → D.OPS 17:41 → D.MS 02-16 15:00
PROVIDERS: Anesthesiology; Family Medicine; Internal Medicine Nephrology; Orthopaedic Surgery
PROC: 0QBC0ZZ Excision of Left Lower Femur, Open Approach (ICD-10-PCS; principal; 2018-02-10 14:00)
PROC: 02HV33Z Insertion of Infusion Device into Superior Vena Cava, Percutaneous Approach (ICD-10-PCS; 2018-02-15)
PROC: B548ZZA Ultrasonography of Superior Vena Cava, Guidance (ICD-10-PCS; 2018-02-15)
DX: T87.44 Infection of amputation stump, left lower extremity (principal); R53.2 Functional quadriplegia; M86.9 Osteomyelitis, unspecified; I13.0 Hypertensive heart and chronic kidney disease with heart failure and stage 1 through stage 4 chronic kidney disease, or unspecified chronic kidney disease; B95.62 Methicillin resistant Staphylococcus aureus infection as the cause of diseases classified elsewhere; E11.69 Type 2 diabetes mellitus with other specified complication; B96.89 Other specified bacterial agents as the cause of diseases classified elsewhere; T87.81 Dehiscence of amputation stump; E11.22 Type 2 diabetes mellitus with diabetic chronic kidney disease; N18.3 Chronic kidney disease, stage 3 (moderate); I50.9 Heart failure, unspecified; D63.8 Anemia in other chronic diseases classified elsewhere; R53.1 Weakness; B96.1 Klebsiella pneumoniae [K. pneumoniae] as the cause of diseases classified elsewhere; F41.8 Other specified anxiety disorders; E78.5 Hyperlipidemia, unspecified; J44.9 Chronic obstructive pulmonary disease, unspecified

== ENCOUNTER 2018-03-04 05:15 | Day surgery (SDC) | payer MEDICARE, OTHER ==
[~2018-03-04] VITALS: Ht 182.9 cm; Wt 106.6 kg
--- NOTE | ~2018-03-04 | OP ---
PATIENT NAME: SUGAR LIVE MEDICAL RECORD: [id number] :41 LOCATION:D.OPS ADMISSION DATE: SURGEON: ANA MARIA ANTUNEZ MD DATE OF OPERATION: 03/04/2018 PREOPERATIVE DIAGNOSIS: Infection of left AKA stump. POSTOPERATIVE DIAGNOSIS: Infection of left AKA stump. PROCEDURE: Excisional debridement of left AKA stump to include skin, subcutaneous tissue, portions of fat and fascia less than 20 cm in total. SURGEON: Ana Maria Antunez MD ANESTHESIA: General. INTRAOPERATIVE COMPLICATIONS: None. SUMMARY OF PATHOLOGIC FINDINGS: The patient was not found to have an abscess. There was one area that seemed like it might have had some abscesses prior; however, upon curettage, there was no evidence of a draining abscess or an abscess under pressure. Cultures were taken from this deep portion, however. The patient was also treated with Neox Sudeep injectable circumferentially about the wound to help enhance healing. OPERATIVE SUMMARY IN DETAIL: After obtaining the appropriate preoperative orthopedic surgery consents as well as anesthetic consultation, evaluation, and clearance, the patient was brought to the operating room and placed on the operating table in supine position. After general laryngeal mask was administered, the patient's left AKA stump was prepped and draped in routine sterile fashion. All nonviable-appearing tissue was immediately excised with scalpel and rongeur as well as curettage. Good bleeding bed was noted. A Norris elevator was utilized to probe the entire wound and one small area on the medial posterior aspect had what appeared to be perhaps nonhealing sinus tract, this was explored and no gross purulence was noted; however, cultures were taken from this. Copious lavage was then followed by packing the wound with 1 inch plain Nu Gauze. Sterile dressings were applied. The patient was awakened, taken to recovery room in stable condition. All final needle and sponge counts were correct. TRANSINT:[id number] Voice Confirmation ID: [id number] DOCUMENT ID: [id number] ANA MARIA ANTUNEZ MD at 0720 CC: [id number] DICTATION DATE: 03/04/18 0845 HARDBOARD SUPERVISOR: 03/04/18 1425 [facility] 03/04/18 [place] [address]
[~2018-03-04 05:15] MED LIST changes: +ARICEPT5 MG PO; +ASPIRIN325 MG PO; +BACTRIM DS TABL1 TAB PO; +PEPCID40 MG PO; +VANCOMYCIN 1 GM/1 G1 IV
[2018-03-04] MEDS ORDERED: LOVENOX40 MG/0.4 SC (07:04)
[2018-03-04] MEDS ORDERED: CEFTRIAXONE1 G/VIAL IM (07:05)
[2018-03-04] MEDS ORDERED: DILAUDID2 MG PO (07:06)
[2018-03-04] MEDS ORDERED: LEVO-T50 MCG PO (07:07)
[2018-03-04] MEDS ORDERED: MAG 6464 MG PO (07:08)
[2018-03-04] MEDS ORDERED: MIRALAX17 GM PO (07:08)
[2018-03-04] MEDS ORDERED: CYMBALTA30 MG PO (07:08)
[2018-03-04] MEDS ORDERED: PERCOCET 10/3251 TA1 PO (07:09)
[2018-03-04] MEDS ORDERED: ZOFRAN4 MG PO (07:09)
[2018-03-04 07:13] VITALS: BP 194/69; Ht 182.9 cm; Wt 106.6 kg
== END 2018-03-04 11:00 | disposition short-term general hospital (02) ==
LOC: D.OPS 05:15
DX: T81.30XD Disruption of wound, unspecified, subsequent encounter (principal); Z89.619 Acquired absence of unspecified leg above knee; I25.10 Atherosclerotic heart disease of native coronary artery without angina pectoris; I10 Essential (primary) hypertension; E03.9 Hypothyroidism, unspecified; E11.9 Type 2 diabetes mellitus without complications; J44.9 Chronic obstructive pulmonary disease, unspecified; Z01.812 Encounter for preprocedural laboratory examination

== ENCOUNTER 2018-03-25 11:00 | Emergency (ER) | payer MEDICARE, OTHER ==
[2018-03-04 07:13] VITALS: BMI 31.9
[~2018-03-25 11:00] MED LIST changes: +CEFTRIAXONE1 G/VIAL IM; +CYMBALTA30 MG PO; +LEVO-T50 MCG PO; +LOVENOX40 MG/0.4 SC; +MAG 6464 MG PO
== END 2018-03-25 12:44 | disposition home or self-care (01) ==
LOC: D.ER 11:00
DX: T82.898A Other specified complication of vascular prosthetic devices, implants and grafts, initial encounter (principal)

== ENCOUNTER 2018-05-30 17:13 | Inpatient (IN) | payer MEDICARE, OTHER ==
[~2018-05-30] VITALS: Ht 182.9 cm; Wt 96.6 kg
[2018-05-30] VITALS (8 sets, daily range): BP systolic 116–169; BP diastolic 48–67
--- NOTE | ~2018-05-30 | CN ---
PATIENT NAME:SUGAR LIVE MEDICAL RECORD: [id number] : 41 LOCATION:D. D.2124 ADMIT DATE: 05/30/18 ACCOUNT: [id number] CONSULTING PHYSICIAN: MICHI VELÁZQUEZ REFERRING PHYSICIAN: VANESSA ALONSO MD DATE OF CONSULTATION: 05/31/2018 HISTORY OF PRESENT ILLNESS: This 73-year-old man who has had a history of diabetes with neuropathy and peripheral vascular disease. The patient has a bilateral above knee amputation about a year and half ago, and has been active and not sedentary or immobilized. The patient has been noted to have altered mental status, in the last 2 weeks he has been more sleepy and more confused over the last week. Has not had any bowel movement. The patient was seen in the Emergency Room and was noted to have severe hypoxemia with a pO2 of 33. The patient has had coughing, unable to expectorate. The patient had a CT angiogram that was indeterminate. Troponin I was negative and BNP was also normal. The patient had an elevated D-dimer. There is question of whether the patient has a PE. PAST MEDICAL HISTORY: Remarkable for diabetes with neuropathy, hypertension, coronary artery disease, peripheral vascular disease, COPD, depression with suicidal ideations, anxiety thoughts. He has a wound dehiscence post-debridement. PAST SURGICAL HISTORY: Includes bilateral above knee amputation, cholecystectomy, leg surgery and right shoulder surgery. ALLERGIES: INCLUDE IV DYE CONTRAST, IODINE. MEDICATIONS: On admission include TriCor 145 mg at bedtime, oxycodone 15 mg every 4 hours as needed, Ativan 1 mg p.r.n. for anxiety, potassium chloride 10 mEq b.i.d., Zoloft 50 mg daily, nitrofurantoin 100 mg b.i.d., lovastatin 40 mg at bedtime, Lyrica 75 mg t.i.d., Lasix 40 mg daily, pantoprazole 40 mg daily, Plavix 75 mg daily, Hyzaar 100/25 mg daily, trazodone 50 mg t.i.d., Robaxin 750 mg q.i.d., Cymbalta 60 mg at bedtime. FAMILY HISTORY: Remarkable for cardiovascular disease. SOCIAL HISTORY: The patient is . Does not smoke or drink. REVIEW OF SYSTEMS: Unobtainable because of the patient's complaints of weakness and unable to answer questions. PHYSICAL EXAMINATION: GENERAL: Reveals a moderately obese man who is in no acute distress. VITAL SIGNS: Temperature 97.5, heart rate of 73, respiratory rate 20, blood pressure 129/61, saturation is 96%. SHEENT: Unremarkable. NECK: Supple. CHEST: Shows coarse crackles bilaterally. There is no accessory muscle use. No chest wall tenderness. HEART: Shows no jugular venous distention. No murmur or gallops. ABDOMEN: Benign, without any tenderness. EXTREMITIES: No clubbing. There is no edema. There is bilateral above knee amputation. CONSULT REPORT [id number] SUGAR LIVE NEUROLOGIC: Intact. No deficits. LABORATORY DATA: White count of 11.5, hemoglobin 9.6 and platelet count is 346. Blood gases; pH of 7.41, pCO2 of 41, pO2 of 55 on 2.5 liters. Chemistry is remarkable for creatinine of 2.9. Potassium is 4.1. Chest x-ray showed left basilar opacification, which may have led to atelectasis or pleural effusion and/or pneumonia. CT of the head shows no intracranial abnormalities. KUB is compatible with ileus, this is not early partial small-bowel obstruction. V/Q lung scan is intermediate probability for pulmonary embolism. ASSESSMENT AND PLAN: 1. Acute respiratory failure with hypoxia, probably secondary to chronic obstructive pulmonary disease, mucous plugs and aspiration pneumonia. 2. Positive D-dimer and intermediate. VQ lung scan does not suggest a pulmonary embolism according to Wells criteria. We will not fully anticoagulate the patient now. 3. Chronic obstructive pulmonary disease. 4. Diabetes mellitus with neuropathy, peripheral vascular disease status post above-knee amputations. RECOMMENDATION: 1. No full anticoagulation. Continue deep venous thrombosis prophylaxis with Lovenox. 2. IV fluids for possible prerenal azotemia. 3. Bronchodilators. 4. Empiric antibiotics for pneumonia. TRANSINT:[id number] Voice Confirmation ID: [id number] DOCUMENT ID: [id number] MICHI VELÁZQUEZ at 0845 CC: [id number] DICTATION DATE: 05/31/18 1500 BALL SORTER: 05/31/18 1823 ADM IN [address] [place] [address]
--- NOTE | ~2018-05-30 | PN ---
PATIENT:SUGAR LIVE MEDICAL RECORD: [id number] LOCATION:D. D.212 ADMISSION DATE: 05/30/18 PROGRESS NOTE DATE OF SERVICE: 06/02/2018 SUBJECTIVE: This is a 73-year-old male who was admitted with increasing shortness of breath. The patient was noted to have small pleural effusions, some atelectasis. No significant infiltrates. The patient's D-dimer positive, but V/Q lung scan was indeterminate. According to Wells criteria did not have any PE. She is on antibiotics and subQ Levaquin for DVT prophylaxis. The patient has been doing well, is more awake and alert. There is no coughing or sputum production. There is no fever. PHYSICAL EXAMINATION: GENERAL: Reveals an obese man who is in no acute distress. VITAL SIGNS: Temperature 97.9, heart rate of 78, respiratory rate of 19, blood pressure 130/69. SHEENT: Unremarkable. NECK: Supple. PULMONARY: Clear, symmetric. There are no crackles or wheezes. HEART: Shows no jugular venous distention, murmur or gallops. ABDOMEN: Benign. EXTREMITIES: There is no clubbing, cyanosis or edema. LABORATORY DATA: White count of 6.5, hemoglobin 8.8. Platelet count 288,000. Chemistry is remarkable for potassium 3.4, creatinine is 1.4, BUN is 30. ASSESSMENT: 1. Acute bronchitis. 2. Renal insufficiency plus peripheral vascular disease. 3. Above-knee amputation bilaterally. PLAN: 1. Continue bronchodilators. 2. Continue antibiotics. 3. We will sign off case. If needed, please call the pulmonary team. TRANSINT:[id number] Voice Confirmation ID: [id number] DOCUMENT ID: [id number] MICHI VELÁZQUEZ at 0845 CC: [id number] DICTATION DATE: 06/02/18 181 BUILDER'S LABOURER: 06/03/18 0459 ADM IN [id number] [place] [id number]
--- NOTE | ~2018-05-30 | PN ---
PATIENT:SUGAR LIVE MEDICAL RECORD: [id number] LOCATION:D.M2 D.212 ADMISSION DATE: 05/30/18 PROGRESS NOTE DATE OF SERVICE: 06/01/2018 SUBJECTIVE: This is a 73-year-old male who has had bilateral lower extremity above-knee amputation. The patient has had diabetes. He has also had peripheral vascular disease and neuropathy. The patient presented with shortness of breath, weakness, and was noted to have pulmonary infiltrates. There is a suspicion in the left lower lobe. The patient had a V/Q lung scan, which was indeterminate, per Well's criteria did not show any evidence of PE. The patient has been on antibiotics since admission and is on bronchodilators. This morning, the patient expressed improvement. His mental status is also improved. Denies any coughing or sputum production. There is no chest pain or fever. PHYSICAL EXAMINATION: GENERAL: Physical exam reveals mildly obese man who is in no acute distress. VITAL SIGNS: The patient is afebrile, heart rate of 81, respiratory rate of 18, blood pressure 157/73, pulse ox is 96% on 2 liters. SHEENT: Unremarkable. Normocephalic. Pupils are equal and reactive. NECK: Supple. There is no tenderness. There is no adenopathy. Trachea is at midline. LUNGS: Exam shows some mild crackles on coughing and greater in the left side. There is no accessory muscle use. HEART: Exam shows no jugular venous distention, no murmur or gallops. ABDOMEN: Benign, without any tenderness. EXTREMITIES: Show no edema and there is bilateral above-knee amputation. LABORATORY DATA: Showed a white count of 7.5, hemoglobin 9.2. Platelet count is 210,000. Chemistries remarkable for creatinine of 2, BUN is 55. Carbon dioxide is 28. Chest x-ray showed persistent opacification at the left lung base. ASSESSMENT: 1. Acute respiratory failure with hypoxia, it is improving. 2. Left lower lobe pneumonia. Need to watch pleural effusion or scar tissue. 3. He has bilateral above-knee amputations with wound dehiscence. 4. Acute kidney injury. This may be acute on chronic secondary to peripheral vascular disease and diabetes. 5. Mild anemia from chronic disease. 6. PCT. PLAN: 1. Continue antibiotics. 2. Bronchodilators. 3. Lovenox per renal dosing for subQ DVT prophylaxis. TRANSINT:[id number] Voice Confirmation ID: [id number] DOCUMENT ID: [id number] PROGRESS NOTE [id number] SUGAR LIVE AUGUSTINE K at 0845 CC: [id number] DICTATION DATE: 06/01/182109 FELLMONGERING MACHINE OPERATOR: 06/02/18 0918 ADM IN [id number] [place] [address]
[2018-05-30 17:41] LABS: BASOPHILS 0.4 % (0-2); EOSINOPHILS 1.1 % (0-7); HEMATOCRIT 25.4 % (42.0-54.0); IMMATURE GRANULOCYTES 0.2 % (0-5); LYMPHOCYTES 8.7 % (15-50); MCV 71.5 fL (80.0-100.0); MEAN PLATELET VOLUME 8.8 fL (7.4-10.4); MONOCYTES 6.5 % (2-11); NEUTROPHILS 83.1 % (40-80); RBC 3.55 10x6/uL (4.20-6.10); RDW 20.5 % (11.5-14.5); WBC 9.1 10x3/uL (4.8-10.8)
[2018-05-30 17:53] LABS: HEMOGLOBIN 7.1 g/dL (13.5-17.5); PLATELET COUNT 355 10x3/uL (130-400)
[2018-05-30 17:57] LABS: INR 1.12 (0.85-1.17)
[2018-05-30 17:58] LABS: D-DIMER-QUANTITATIVE 2.25 ug/mLFEU (0.20-0.54)
[2018-05-30 18:01] LABS: ALBUMIN 2.6 g/dL (3.4-5.0); ANION GAP 16.8 mmol/L (8-16); BILIRUBIN - TOTAL 0.42 mg/dL (0.2-1.3); CALCIUM 9.2 mg/dL (8.5-10.1); CARBON DIOXIDE 27.3 mmol/L (21.0-32.0); POTASSIUM - SERUM 4.1 mmol/L (3.5-5.1); PROTEIN - SERUM 7.7 g/dL (6.4-8.2)
[2018-05-30 18:18] LABS: CKMB 0.3 U/L (0.0-3.6); CREATINE KINASE 36 UL (21-232); LIPASE 327 U/L (73-393); PRO BNP 107 pg/mL (0-450); THYROID STIMULATING HORMONE 3.59 uIU/mL (0.36-3.74)
[2018-05-30 18:30] LABS: TROPONIN-I < 0.017 ng/mL (0.000-0.060)
[2018-05-30 19:59] LABS: APPEARANCE CLEAR (CLEAR); BILIRUBIN NEGATIVE (NEGATIVE); COLOR YELLOW (YELLOW); GLUCOSE NEGATIVE (NEGATIVE); KETONE NEGATIVE (NEGATIVE); NITRITE NEGATIVE (NEGATIVE); PROTEIN NEGATIVE (NEGATIVE); SPECIFIC GRAVITY 1.015 (1.005-1.020); UROBILINOGEN NORMAL (NORMAL)
[2018-05-31] VITALS (26 sets, daily range): BP systolic 101–149; BP diastolic 48–88; Ht 182.9 cm; Wt 96.6 kg
[2018-05-31] MEDS ORDERED: TRICOR145 MG PO (01:31)
[2018-05-31] MEDS ORDERED: ROXICODONE15 MG PO (01:32)
[2018-05-31] MEDS ORDERED: ATIVAN1 MG PO (01:33)
[2018-05-31] MEDS ORDERED: K-TAB10 MEQ PO (01:34)
[2018-05-31] MEDS ORDERED: ZOLOFT50 MG PO (01:35)
[2018-05-31] MEDS ORDERED: MACROBID100 MG PO (01:37)
[2018-05-31] MEDS ORDERED: PRAVACHOL40 MG PO (01:38)
[2018-05-31] MEDS ORDERED: LYRICA75 MG PO (01:39)
[2018-05-31] MEDS ORDERED: PROTONIX40 MG PO (01:40)
[2018-05-31] MEDS ORDERED: FUROSEMIDE40 MG PO (01:40)
[2018-05-31 04:52] LABS: BASOPHILS 0.2 % (0-2); EOSINOPHILS 0.3 % (0-7); IMMATURE GRANULOCYTES 0.3 % (0-5); LYMPHOCYTES 10.3 % (15-50); MCH 22.7 pg (26.0-34.0); MCHC 29.7 g/dL (31.0-37.0); MEAN PLATELET VOLUME 9.3 fL (7.4-10.4); MONOCYTES 6.1 % (2-11); NEUTROPHILS 82.8 % (40-80); PLATELET COUNT 346 10x3/uL (130-400); RBC 4.23 10x6/uL (4.20-6.10); RDW 22.6 % (11.5-14.5)
[2018-05-31 04:55] LABS: HEMATOCRIT 32.3 % (42.0-54.0); HEMOGLOBIN 9.6 g/dL (13.5-17.5); MCV 76.4 fL (80.0-100.0); WBC 11.5 10x3/uL (4.8-10.8)
[2018-05-31 05:42] LABS: ALBUMIN 2.6 g/dL (3.4-5.0); ANION GAP 10.7 mmol/L (8-16); BILIRUBIN - TOTAL 0.94 mg/dL (0.2-1.3); CALCIUM 8.9 mg/dL (8.5-10.1); CARBON DIOXIDE 30.4 mmol/L (21.0-32.0); CREATININE - SERUM 2.9 mg/dL (0.6-1.3); POTASSIUM - SERUM 4.1 mmol/L (3.5-5.1); PROTEIN - SERUM 7.6 g/dL (6.4-8.2)
[2018-06-01] VITALS (20 sets, daily range): BP systolic 121–167; BP diastolic 59–93
[2018-06-01 05:23] LABS: BASOPHILS 0.3 % (0-2); EOSINOPHILS 0.5 % (0-7); HEMATOCRIT 30.2 % (42.0-54.0); HEMOGLOBIN 9.2 g/dL (13.5-17.5); IMMATURE GRANULOCYTES 0.3 % (0-5); LYMPHOCYTES 11.1 % (15-50); MCH 23.1 pg (26.0-34.0); MCHC 30.5 g/dL (31.0-37.0); MCV 75.9 fL (80.0-100.0); MEAN PLATELET VOLUME 9.2 fL (7.4-10.4); MONOCYTES 5.9 % (2-11); NEUTROPHILS 81.9 % (40-80); PLATELET COUNT 310 10x3/uL (130-400); RBC 3.98 10x6/uL (4.20-6.10); RDW 22.7 % (11.5-14.5)
[2018-06-01 05:46] LABS: WBC 7.5 10x3/uL (4.8-10.8)
[2018-06-01 05:56] LABS: ALBUMIN 2.4 g/dL (3.4-5.0); ANION GAP 13.7 mmol/L (8-16); BILIRUBIN - TOTAL 0.52 mg/dL (0.2-1.3); CALCIUM 8.8 mg/dL (8.5-10.1); CHOL - HDL RATIO 2.7 ratio (2.3-4.9); LDL-HDL RATIO 0.8 ratio (1.5-3.5); MAGNESIUM - SERUM 2.2 mg/dL (1.8-2.4); PHOSPHOROUS 3.3 mg/dL (2.5-4.9); POTASSIUM - SERUM 3.7 mmol/L (3.5-5.1); PROTEIN - SERUM 7.4 g/dL (6.4-8.2); VANCOMYCIN - TROUGH 7.7 ug/mL (10.0-20.0)
[2018-06-02 06:11] VITALS: BP 168/75
[2018-06-02 06:18] LABS: BASOPHILS 0.5 % (0-2); EOSINOPHILS 1.1 % (0-7); HEMATOCRIT 30.1 % (42.0-54.0); HEMOGLOBIN 8.8 g/dL (13.5-17.5); IMMATURE GRANULOCYTES 0.3 % (0-5); LYMPHOCYTES 12.4 % (15-50); MCH 22.4 pg (26.0-34.0); MCHC 29.2 g/dL (31.0-37.0); MCV 76.8 fL (80.0-100.0); MEAN PLATELET VOLUME 9.2 fL (7.4-10.4); MONOCYTES 6.9 % (2-11); NEUTROPHILS 78.8 % (40-80); PLATELET COUNT 288 10x3/uL (130-400); RBC 3.92 10x6/uL (4.20-6.10); RDW 22.9 % (11.5-14.5); WBC 6.5 10x3/uL (4.8-10.8)
[2018-06-02 06:46] LABS: ALBUMIN 2.4 g/dL (3.4-5.0); ANION GAP 11.6 mmol/L (8-16); BILIRUBIN - TOTAL 0.38 mg/dL (0.2-1.3); CALCIUM 9.1 mg/dL (8.5-10.1); CARBON DIOXIDE 27.8 mmol/L (21.0-32.0); MAGNESIUM - SERUM 1.9 mg/dL (1.8-2.4); POTASSIUM - SERUM 3.4 mmol/L (3.5-5.1); PROTEIN - SERUM 7.4 g/dL (6.4-8.2)
[2018-06-02 06:49] LABS: CREATININE - SERUM 1.4 mg/dL (0.6-1.3)
[2018-06-02 08:27] VITALS: BP 158/63
[2018-06-02 11:33] VITALS: BP 172/61
[2018-06-02 16:14] VITALS: BP 130/69
[2018-06-02 21:27] VITALS: BP 172/57
[2018-06-03 02:05] VITALS: BP 160/65
[2018-06-03 04:00] VITALS: BP 137/71
[2018-06-03 05:30] LABS: BASOPHILS 0.4 % (0-2); EOSINOPHILS 2.2 % (0-7); HEMOGLOBIN 9.1 g/dL (13.5-17.5); IMMATURE GRANULOCYTES 0.4 % (0-5); LYMPHOCYTES 16.9 % (15-50); MCH 22.9 pg (26.0-34.0); MCHC 30.3 g/dL (31.0-37.0); MCV 75.6 fL (80.0-100.0); MONOCYTES 8.8 % (2-11); NEUTROPHILS 71.3 % (40-80); PLATELET COUNT 260 10x3/uL (130-400); RBC 3.97 10x6/uL (4.20-6.10); RDW 22.8 % (11.5-14.5); WBC 5.6 10x3/uL (4.8-10.8)
[2018-06-03 05:41] LABS: ANION GAP 14.1 mmol/L (8-16); CARBON DIOXIDE 23.4 mmol/L (21.0-32.0); CREATININE - SERUM 1.2 mg/dL (0.6-1.3); POTASSIUM - SERUM 3.5 mmol/L (3.5-5.1)
[2018-06-03 08:03] VITALS: BP 168/50
[2018-06-03 11:10] VITALS: BP 183/75
[2018-06-03 15:21] VITALS: BP 164/68
[2018-06-03 21:20] VITALS: BP 161/75
[2018-06-04] VITALS (7 sets, daily range): BP systolic 161–193; BP diastolic 65–89
[2018-06-04 16:07] LABS: BASOPHILS 0.1 % (0-2); EOSINOPHILS 1.2 % (0-7); HEMATOCRIT 33.1 % (42.0-54.0); HEMOGLOBIN 9.8 g/dL (13.5-17.5); IMMATURE GRANULOCYTES 0.3 % (0-5); LYMPHOCYTES 11.5 % (15-50); MCH 22.2 pg (26.0-34.0); MCHC 29.6 g/dL (31.0-37.0); MCV 75.1 fL (80.0-100.0); MEAN PLATELET VOLUME 8.7 fL (7.4-10.4); MONOCYTES 7.5 % (2-11); NEUTROPHILS 79.4 % (40-80); PLATELET COUNT 242 10x3/uL (130-400); RBC 4.41 10x6/uL (4.20-6.10); RDW 22.4 % (11.5-14.5); WBC 6.7 10x3/uL (4.8-10.8)
[2018-06-04 16:16] LABS: ANION GAP 16.9 mmol/L (8-16); CALCIUM 8.9 mg/dL (8.5-10.1); CARBON DIOXIDE 20.3 mmol/L (21.0-32.0); CREATININE - SERUM 1.2 mg/dL (0.6-1.3); POTASSIUM - SERUM 3.2 mmol/L (3.5-5.1)
[2018-06-05 08:00] VITALS: BP 145/70
[2018-06-06 00:11] VITALS: BP 180/60
[2018-06-06 04:00] VITALS: BP 164/78
[2018-06-06 05:41] LABS: BASOPHILS 0.8 % (0-2); EOSINOPHILS 2.2 % (0-7); HEMATOCRIT 29.4 % (42.0-54.0); HEMOGLOBIN 8.8 g/dL (13.5-17.5); IMMATURE GRANULOCYTES 0.3 % (0-5); LYMPHOCYTES 15.9 % (15-50); MCH 22.3 pg (26.0-34.0); MCHC 29.9 g/dL (31.0-37.0); MCV 74.4 fL (80.0-100.0); MEAN PLATELET VOLUME 9.1 fL (7.4-10.4); MONOCYTES 7.1 % (2-11); NEUTROPHILS 73.7 % (40-80); PLATELET COUNT 246 10x3/uL (130-400); RBC 3.95 10x6/uL (4.20-6.10); RDW 22.4 % (11.5-14.5)
[2018-06-06 06:01] LABS: ANION GAP 14.4 mmol/L (8-16); CALCIUM 8.7 mg/dL (8.5-10.1); CARBON DIOXIDE 20.5 mmol/L (21.0-32.0); CREATININE - SERUM 1.2 mg/dL (0.6-1.3)
[2018-06-06 06:04] LABS: POTASSIUM - SERUM 2.9 mmol/L (3.5-5.1)
[2018-06-06 16:20] LABS: % SATURATION 5 % (15-55); IRON 16 ug/dl (35-150); TOTAL IRON BIND CAPACITY 283 ug/dl (260-445); UNSAT IRON BIND CAPACITY 267 ug/dl (150-375)
[2018-06-06 23:37] VITALS: BP 169/57
[2018-06-07 05:00] VITALS: BP 172/58
[2018-06-07 06:01] LABS: BASOPHILS 0.6 % (0-2); EOSINOPHILS 1.5 % (0-7); HEMOGLOBIN 9.2 g/dL (13.5-17.5); IMMATURE GRANULOCYTES 0.6 % (0-5); LYMPHOCYTES 11.6 % (15-50); MCH 22.2 pg (26.0-34.0); MCHC 29.7 g/dL (31.0-37.0); MCV 74.7 fL (80.0-100.0); MEAN PLATELET VOLUME 9.3 fL (7.4-10.4); MONOCYTES 8.3 % (2-11); NEUTROPHILS 77.4 % (40-80); PLATELET COUNT 282 10x3/uL (130-400); RBC 4.15 10x6/uL (4.20-6.10); RDW 22.4 % (11.5-14.5); WBC 6.6 10x3/uL (4.8-10.8)
[2018-06-07 06:22] LABS: ANION GAP 14.4 mmol/L (8-16); CALCIUM 8.7 mg/dL (8.5-10.1); CARBON DIOXIDE 21.2 mmol/L (21.0-32.0); CREATININE - SERUM 1.2 mg/dL (0.6-1.3); MAGNESIUM - SERUM 1.6 mg/dL (1.8-2.4); POTASSIUM - SERUM 3.6 mmol/L (3.5-5.1)
[2018-06-07 07:39] VITALS: BP 185/70
[2018-06-07 11:51] VITALS: BP 191/63
[2018-06-07 15:15] VITALS: BP 175/68
[2018-06-07 22:16] VITALS: BP 183/66
[2018-06-08 05:17] LABS: BASOPHILS 0.7 % (0-2); EOSINOPHILS 2.5 % (0-7); HEMATOCRIT 29.6 % (42.0-54.0); HEMOGLOBIN 8.8 g/dL (13.5-17.5); IMMATURE GRANULOCYTES 0.7 % (0-5); LYMPHOCYTES 15.8 % (15-50); MCH 22.2 pg (26.0-34.0); MCHC 29.7 g/dL (31.0-37.0); MCV 74.6 fL (80.0-100.0); MEAN PLATELET VOLUME 9.4 fL (7.4-10.4); MONOCYTES 8.5 % (2-11); NEUTROPHILS 71.8 % (40-80); PLATELET COUNT 308 10x3/uL (130-400); RBC 3.97 10x6/uL (4.20-6.10); RDW 22.7 % (11.5-14.5); WBC 5.9 10x3/uL (4.8-10.8)
[2018-06-08 05:34] LABS: ANION GAP 12.3 mmol/L (8-16); CALCIUM 8.6 mg/dL (8.5-10.1); CARBON DIOXIDE 21.8 mmol/L (21.0-32.0); CREATININE - SERUM 1.2 mg/dL (0.6-1.3); MAGNESIUM - SERUM 1.8 mg/dL (1.8-2.4); POTASSIUM - SERUM 3.1 mmol/L (3.5-5.1)
[2018-06-08 06:42] VITALS: BP 177/59
[2018-06-08 09:22] LABS: FOLATE (FOLIC ACID) - SERUM 4.8 ng/mL (>3.0)
[2018-06-08 13:57] VITALS: BP 162/64
[2018-06-08 20:42] VITALS: BP 172/59
[2018-06-09 00:59] VITALS: BP 153/48
[2018-06-09 05:14] VITALS: BP 136/61
[2018-06-09 07:30] VITALS: BP 153/48
[2018-06-09 07:45] LABS: ANION GAP 12.8 mmol/L (8-16); BASOPHILS 0.8 % (0-2); CALCIUM 8.7 mg/dL (8.5-10.1); CARBON DIOXIDE 22.7 mmol/L (21.0-32.0); CREATININE - SERUM 1.2 mg/dL (0.6-1.3); EOSINOPHILS 2.1 % (0-7); HEMATOCRIT 28.6 % (42.0-54.0); HEMOGLOBIN 8.5 g/dL (13.5-17.5); IMMATURE GRANULOCYTES 0.6 % (0-5); LYMPHOCYTES 16.7 % (15-50); MCH 22.3 pg (26.0-34.0); MCHC 29.7 g/dL (31.0-37.0); MCV 75.1 fL (80.0-100.0); MONOCYTES 9.5 % (2-11); NEUTROPHILS 70.3 % (40-80); PLATELET COUNT 278 10x3/uL (130-400); POTASSIUM - SERUM 3.5 mmol/L (3.5-5.1); RBC 3.81 10x6/uL (4.20-6.10); RDW 23.1 % (11.5-14.5); WBC 5.1 10x3/uL (4.8-10.8)
[2018-06-09 11:40] VITALS: BP 143/50
[2018-06-09 16:21] VITALS: BP 136/52
[2018-06-09 20:35] VITALS: BP 191/59
[2018-06-10 05:34] VITALS: BP 212/86
[2018-06-10 08:26] VITALS: BP 168/58
[2018-06-10] MEDS ORDERED: SINGULAIR10 MG PO (09:15)
[2018-06-10] MEDS ORDERED: ANUSOL-HC25 MG RC (09:15)
[2018-06-10] MEDS ORDERED: MIRALAX17 GM PO (09:15)
[2018-06-10] MEDS ORDERED: CARAFATE1 G/10 ML PO (09:15)
[2018-06-10] MEDS ORDERED: COLACE100 MG PO (09:15)
[2018-06-10 11:43] VITALS: BP 142/62
[2018-06-10 12:06] LABS: BASOPHILS 0.6 % (0-2); EOSINOPHILS 1.3 % (0-7); HEMATOCRIT 30.8 % (42.0-54.0); HEMOGLOBIN 9.1 g/dL (13.5-17.5); IMMATURE GRANULOCYTES 0.5 % (0-5); LYMPHOCYTES 14.8 % (15-50); MCH 22.6 pg (26.0-34.0); MCHC 29.5 g/dL (31.0-37.0); MCV 76.4 fL (80.0-100.0); MEAN PLATELET VOLUME 9.2 fL (7.4-10.4); MONOCYTES 8.5 % (2-11); NEUTROPHILS 74.3 % (40-80); PLATELET COUNT 319 10x3/uL (130-400); RBC 4.03 10x6/uL (4.20-6.10); RDW 23.7 % (11.5-14.5); WBC 6.2 10x3/uL (4.8-10.8)
[2018-06-10 12:31] LABS: ANION GAP 12.7 mmol/L (8-16); CALCIUM 8.9 mg/dL (8.5-10.1); CARBON DIOXIDE 20.4 mmol/L (21.0-32.0); CREATININE - SERUM 1.1 mg/dL (0.6-1.3); POTASSIUM - SERUM 3.1 mmol/L (3.5-5.1)
[2018-06-10 15:10] VITALS: BP 132/66
== END 2018-06-10 15:52 | disposition home health service (06) | DRG 377 ==
LOC: D.ER 17:13 → D.M2 23:04 → D.EDHOLD 23:04 → D.ICU 23:04 → D.M2 06-01 21:25
PROVIDERS: Family Medicine; Family Medicine Adult Medicine; Internal Medicine Gastroenterology; Internal Medicine Nephrology
PROC: 0W3P8ZZ Control Bleeding in Gastrointestinal Tract, Via Natural or Artificial Opening Endoscopic (ICD-10-PCS; principal; 2018-06-03 07:00)
DX: K92.2 Gastrointestinal hemorrhage, unspecified (principal); J18.9 Pneumonia, unspecified organism; J96.01 Acute respiratory failure with hypoxia; I13.0 Hypertensive heart and chronic kidney disease with heart failure and stage 1 through stage 4 chronic kidney disease, or unspecified chronic kidney disease; N17.9 Acute kidney failure, unspecified; K55.21 Angiodysplasia of colon with hemorrhage; R41.82 Altered mental status, unspecified; E11.22 Type 2 diabetes mellitus with diabetic chronic kidney disease; N18.3 Chronic kidney disease, stage 3 (moderate); Z89.612 Acquired absence of left leg above knee; Z89.611 Acquired absence of right leg above knee; I73.9 Peripheral vascular disease, unspecified; I25.10 Atherosclerotic heart disease of native coronary artery without angina pectoris; T87.81 Dehiscence of amputation stump; D63.1 Anemia in chronic kidney disease; M10.9 Gout, unspecified; J44.9 Chronic obstructive pulmonary disease, unspecified; L89.152 Pressure ulcer of sacral region, stage 2

== ENCOUNTER → 2018-09-21 17:30 | Outpatient (CLI) | payer MEDICARE, OTHER ==
[2018-05-31 16:01] VITALS: BMI 28.9
[~2018-09-21 17:30] MED LIST changes: +ANUSOL-HC25 MG RC; +ATIVAN1 MG PO; +CARAFATE1 G/10 ML PO; +SINGULAIR10 MG PO
== END | disposition home or self-care (01) ==
LOC: D.LABREF 17:30
DX: T87.44 Infection of amputation stump, left lower extremity (principal)

== ENCOUNTER 2018-10-16 10:10 | Inpatient (IN) | payer MEDICARE, OTHER ==
[2018-10-16] VITALS (13 sets, daily range): BP systolic 109–163; BP diastolic 50–72; BMI 32.5
[~2018-10-16] VITALS: Ht 182.9 cm; Wt 113.9 kg
--- NOTE | ~2018-10-16 | MORECARE ---
CASE MANAGEMENT DISCHARGE SUMMARY PATIENT: SUGAR LIVE UNIT: [id number] ADM DATE: 10/16/18 AGE: 73 : 43 SEX: M ROOM/BED: D.2305 AUTHOR: MARIA LUISA MORA PHYSICIAN: REFERRING PHYSICIAN: VANESSA ALONSO MD DATE OF SERVICE: 10/17/18 Discharge Plan Patient Name: SUGAR LIVE Facility: [facility]:[place] : 1945 Planned Disposition: Home Health Service Anticipated Discharge Date: Discharge Date: Expected LOS: Initial Reviewer: [email or web address] Initial Review Date: 10/17/2018 Generated: 10/17/18 3:38 pm Patient Name: SUAGR LVIE Page [id number] at 1438 All edits/amendments must be made on the electronic document DICTATION DATE: 10/17/181436 SUPERVISOR POULTRY FARM: DARION 10/17/18 143 RPT#: [id number] DC DATE: STATUS: ADM IN [facility] [address] [place] [address] END OF REPORT
--- NOTE | ~2018-10-16 | MORECARE ---
CASE MANAGEMENT DISCHARGE SUMMARY PATIENT: SUGAR LIVE UNIT: [id number] ADM DATE: 10/16/18 AGE: 73 : 43 SEX: M ROOM/BED: D.2227 AUTHOR: MORGAN,DOC PHYSICIAN: REFERRING PHYSICIAN: VANESSA ALONSO MD DATE OF SERVICE: 10/24/18 Discharge Plan Patient Name: SUGAR LIVE Facility: [facility]:[place] : 1945 Planned Disposition: Home Health Service Anticipated Discharge Date: Discharge Date: 10/24/2018 Expected LOS: Initial Reviewer: [email or web address] Initial Review Date: 10/17/2018 Generated: 10/24/18 3:44 pm Comments DCP- Discharge Planning Updated by [email or web address]: Tammy Donal on 10/24/18 9:[address] Met with patient and in his room concerning discharge plans/needs. He states he is going home with resumption of [facility], his is in agreement. States he has all the DME he needs. I called [facility] and spoke to Ada and clinical faxed. Discharging home today with home health. DCP- Discharge Planning Updated by [email or web address]: Carrie Boo on 10/17/18 1:[address] Patient Name: SUGAR LIVE Admission Status: ER Accout number: [id number] Admission Date: 10-16-2018 : 1945 Admission Diagnosis: Attending: VANESSA ALONSO Current LOS: 1 Anticipated DC Date: Planned Disposition: Home Health Service Primary Insurance: MEDICARE A & B Discharge Planning Comments: CM spoke with patient and spouse at bedside after obtaining verbal consent. Patient plans on returning to his home and resuming home health services with [facility]. . Patient denies any discharge needs at this time. CM will continue to follow and assist as needed with discharge planning / needs. Sweeper Operator Highways: Carrie Boo DCPIA - Discharge Planning Initial Assessment Updated by [email or web address]: Carrie Boo on 10/17/18 2:39 pm * Is the patient Alert and Oriented? Yes * How many steps to enter\exit or inside your home? RAMP * PCP DR. SY * Pharmacy [facility] * Preadmission Environment Home with Family * ADLs Partial Dependent * Partial ADLs (Assistance needed) Bathing Dressing * Equipment Nebulizer * Other Equipment NEBULIZER,W/C, WILBERTO SERRANO SHOWERCHAIR * List name and contact numbers for known caregivers / representatives who currently or will assist patient after discharge: JEAN LIVE SPOUSE [phone] * Verbal permission to speak to the caregivers and representatives has been obtained from the patient. Yes * Community resources currently utilized Home Health * Please name any agencies selected above. [facility] * Additional services required to return to the preadmission environment? No * Can the patient safely return to the preadmission environment? Yes * Has this patient been hospitalized within the prior 30 days at any hospital? No Coverage Notice Reviewer: [email or web address] Denilson Mansfield Notice Issued Date-Time: 10/24/2018 10:25 Notice Type: IM Discharge Notice Notice Delivered To: Patient Relationship to Patient: Self Assistant Therapy Aide Name: Delivery Method: HAND - Hand Delivered Karen Days: Prior Verbal Notification: Recipient Understood Notice: Yes Recipient Signature: Yes Med Rec Note Co-signed by Attending: Coverage Notice Comment: IMM explained, signed, copy given, original placed in MR Last DP export: 10/24/18 9:37 Patient Name: SUGAR LIVE Page [id number] at 1444 All edits/amendments must be made on the electronic document DICTATION DATE: 10/24/181443 TELESALES PROFESSIONAL: DARION 10/24/18 1444 RPT#: [id number] DC DATE:10/24/18 STATUS: DIS [facility] [address] [place] [address] END OF REPORT
--- NOTE | ~2018-10-16 | MORECARE ---
CASE MANAGEMENT DISCHARGE SUMMARY PATIENT: SUGAR LIVE UNIT: [id number] ADM DATE: 10/16/18 AGE: 73 : 43 SEX: M ROOM/BED: D.2227 AUTHOR: MORGAN,DOC PHYSICIAN: REFERRING PHYSICIAN: VANESSA ALONSO MD DATE OF SERVICE: 10/24/18 Discharge Plan Patient Name: SUGAR LIVE Facility: [facility]:[place] : 1945 Planned Disposition: Home Health Service Anticipated Discharge Date: Discharge Date: Expected LOS: Initial Reviewer: [email or web address] Initial Review Date: 10/17/2018 Generated: 10/24/18 11:37 am Comments DCP- Discharge Planning Updated by [email or web address]: Tammy Mansfield on 10/24/18 9:[address] Met with patient and in his room concerning discharge plans/needs. He states he is going home with resumption of [facility], his is in agreement. States he has all the DME he needs. I called [facility] and spoke to Ada and clinical faxed. Discharging home today with home health. DCP- Discharge Planning Updated by [email or web address]: Carrie Boo on 10/17/18 1:[address] Patient Name: SUGAR LIVE Admission Status: ER Accout number: [id number] Admission Date: 10-16-2018 : 1945 Admission Diagnosis: Attending: VANESSA ALONSO Current LOS: 1 Anticipated DC Date: Planned Disposition: Home Health Service Primary Insurance: MEDICARE A & B Discharge Planning Comments: CM spoke with patient and spouse at bedside after obtaining verbal consent. Patient plans on returning to his home and resuming home health services with [facility]. . Patient denies any discharge needs at this time. CM will continue to follow and assist as needed with discharge planning / needs. Bridge Maintainer: Carrie Boo DCPIA - Discharge Planning Initial Assessment Updated by [email or web address]: Carrie Boo on 10/17/18 2:39 pm * Is the patient Alert and Oriented? Yes * How many steps to enter\exit or inside your home? RAMP * PCP DR. SY * Pharmacy [facility] * Preadmission Environment Home with Family * ADLs Partial Dependent * Partial ADLs (Assistance needed) Bathing Dressing * Equipment Nebulizer * Other Equipment NEBULIZER,W/C, WILBERTO SERRANO SHOWERCHAIR * List name and contact numbers for known caregivers / representatives who currently or will assist patient after discharge: JEAN LIVE SPOUSE [phone] * Verbal permission to speak to the caregivers and representatives has been obtained from the patient. Yes * Community resources currently utilized Home Health * Please name any agencies selected above. [facility] * Additional services required to return to the preadmission environment? No * Can the patient safely return to the preadmission environment? Yes * Has this patient been hospitalized within the prior 30 days at any hospital? No External Providers External Provider: [facility] Next Contact Date: Service Request Date: Service Type: Resolution: Reviewer: Comments: Coverage Notice Reviewer: [email or web address] Denilson Mansfield Notice Issued Date-Time: 10/24/2018 10:25 Notice Type: IM Discharge Notice Notice Delivered To: Patient Relationship to Patient: Self Regional Construction Manager Name: Delivery Method: HAND - Hand Delivered Karen Days: Prior Verbal Notification: Recipient Understood Notice: Yes Recipient Signature: Yes Med Rec Note Co-signed by Attending: Coverage Notice Comment: IMM explained, signed, copy given, original placed in MR Last DP export: 10/17/18 1:47 Patient Name: SUGAR LIVE Page 39824 at 1037 All edits/amendments must be made on the electronic document DICTATION DATE: 10/24/18 1037 CAKE FORMER: DARION 10/24/18 1037 RPT#: [id number] DC DATE: STATUS: ADM IN [facility] [address] [place] [address] END OF REPORT
--- NOTE | ~2018-10-16 | MORECARE ---
CASE MANAGEMENT DISCHARGE SUMMARY PATIENT: SUGAR LIVE UNIT: [id number] ADM DATE: 10/16/18 AGE: 73 : 43 SEX: M ROOM/BED: D.2305 AUTHOR: MORGAN,DOC PHYSICIAN: REFERRING PHYSICIAN: VANESSA ALONSO MD DATE OF SERVICE: 10/17/18 Discharge Plan Patient Name: SUGAR LIVE Facility: [facility]:[place] : 1945 Planned Disposition: Home Health Service Anticipated Discharge Date: Discharge Date: Expected LOS: Initial Reviewer: [email or web address] Initial Review Date: 10/17/2018 Generated: 10/17/18 3:47 pm Comments DCP- Discharge Planning Updated by [email or web address]: Carrie Boo on 10/17/18 1:[address] Patient Name: SUGAR LIVE Admission Status: ER Accout number: [id number] Admission Date: 10-16-2018 : 1945 Admission Diagnosis: Attending: VANESSA ALONSO Current LOS: 1 Anticipated DC Date: Planned Disposition: Home Health Service Primary Insurance: MEDICARE A & B Discharge Planning Comments: CM spoke with patient and spouse at bedside after obtaining verbal consent. Patient plans on returning to his home and resuming home health services with [facility]. . Patient denies any discharge needs at this time. CM will continue to follow and assist as needed with discharge planning / needs. C Winforms Developer: Carrie Boo DCPIA - Discharge Planning Initial Assessment Updated by [email or web address]: Carrie Boo on 10/17/18 2:39 pm * Is the patient Alert and Oriented? Yes * How many steps to enter\exit or inside your home? RAMP * PCP DR. SY * Pharmacy [facility] * Preadmission Environment Home with Family * ADLs Partial Dependent * Partial ADLs (Assistance needed) Bathing Dressing * Equipment Nebulizer * Other Equipment NEBULIZER,W/C, SCOTTER, WILBERTO JACINTO, SHOWERCHAIR * List name and contact numbers for known caregivers / representatives who currently or will assist patient after discharge: JEAN LIVE SPOUSE [phone] * Verbal permission to speak to the caregivers and representatives has been obtained from the patient. Yes * Community resources currently utilized Home Health * Please name any agencies selected above. [facility] * Additional services required to return to the preadmission environment? No * Can the patient safely return to the preadmission environment? Yes * Has this patient been hospitalized within the prior 30 days at any hospital? No Last DP export: 10/17/18 1:38 Patient Name: SUGAR LIVE Page 41945 at 1447 All edits/amendments must be made on the electronic document DICTATION DATE: 10/17/181446 FIXED WING PILOT: DARION 10/17/181446 RPT#: [id number] [place] DATE: STATUS: ADM IN [facility] [address] [place] [address] END OF REPORT
[2018-10-16 11:12] LABS: BASOPHILS 0.3 % (0-2); EOSINOPHILS 0.4 % (0-7); HEMATOCRIT 35.7 % (42.0-54.0); HEMOGLOBIN 10.8 g/dL (13.5-17.5); IMMATURE GRANULOCYTES 0.5 % (0-5); LYMPHOCYTES 19.8 % (15-50); MCH 25.4 pg (26.0-34.0); MCHC 30.3 g/dL (31.0-37.0); MCV 83.8 fL (80.0-100.0); MEAN PLATELET VOLUME 9.7 fL (7.4-10.4); MONOCYTES 5.9 % (2-11); NEUTROPHILS 73.1 % (40-80); PLATELET COUNT 266 10x3/uL (130-400); RBC 4.26 10x6/uL (4.20-6.10)
[2018-10-16 11:17] LABS: APTT 27.5 SECONDS (22.8-39.4); INR 1.05 (0.85-1.17); PROTIME 13.2 SECONDS (11.6-15.0)
[2018-10-16 11:22] LABS: ALBUMIN 2.5 g/dL (3.4-5.0); ALKALINE PHOSPHATASE 52 U/L (46-116); ALT (SGPT) 6 U/L (10-68); CALC OSMOLALITY 292 mosm/kg (275-300); CALCIUM 8.8 mg/dL (8.5-10.1); CHLORIDE - SERUM 104 mmol/L (98-107); CREATININE - SERUM 1.7 mg/dL (0.6-1.3); POTASSIUM - SERUM 4.2 mmol/L (3.5-5.1); PROTEIN - SERUM 6.4 g/dL (6.4-8.2); SODIUM 141 mmol/L (136-145); UREA NITROGEN 34 mg/dL (7-18); eGFR NON AFRICAN AMERICAN 42 mL/min (90-120)
[2018-10-16 11:23] LABS: GLUCOSE 164 mg/dL (74-106)
[2018-10-16 11:34] LABS: CKMB 0.3 U/L (0.0-3.6)
[2018-10-16 11:43] LABS: APPEARANCE CLEAR (CLEAR); BILIRUBIN NEGATIVE (NEGATIVE); COLOR YELLOW (YELLOW); EPITHELIAL CELLS 0-5 /hpf (0-5); GLUCOSE NEGATIVE (NEGATIVE); KETONE NEGATIVE (NEGATIVE); NITRITE NEGATIVE (NEGATIVE); PROTEIN TRACE mg/dL (NEGATIVE); RED CELLS - URINE 0-5 /hpf (0-5); UROBILINOGEN NORMAL (NORMAL); WHITE CELLS - URINE NSEEN /hpf (0-5)
[2018-10-16 12:00] LABS: CREATINE KINASE 59 UL (21-232); PRO BNP 278 pg/mL (0-450)
[2018-10-16 12:01] LABS: TROPONIN-I 0.011 ng/mL (0.000-0.060)
[2018-10-16 20:03] LABS: CKMB 0.1 U/L (0.0-3.6); CREATINE KINASE 80 UL (21-232)
[2018-10-16 20:13] LABS: TROPONIN-I < 0.017 ng/mL (0.000-0.060)
[2018-10-16 23:08] LABS: CKMB 0.5 U/L (0.0-3.6); CREATINE KINASE 60 UL (21-232); TROPONIN-I < 0.017 ng/mL (0.000-0.060)
[2018-10-17] VITALS (25 sets, daily range): BP systolic 109–169; BP diastolic 50–120
[2018-10-17 05:59] LABS: BASOPHILS 0 % (0-2); EOSINOPHILS 0 % (0-7); HEMATOCRIT 29.2 % (42.0-54.0); HEMOGLOBIN 8.8 g/dL (13.5-17.5); IMMATURE GRANULOCYTES 0.5 % (0-5); LYMPHOCYTES 7.6 % (15-50); MCH 25.1 pg (26.0-34.0); MCHC 30.1 g/dL (31.0-37.0); MCV 83.2 fL (80.0-100.0); MEAN PLATELET VOLUME 9.3 fL (7.4-10.4); MONOCYTES 2.9 % (2-11); PLATELET COUNT 222 10x3/uL (130-400); RBC 3.51 10x6/uL (4.20-6.10); RDW 15.8 % (11.5-14.5)
[2018-10-17 06:19] LABS: WBC 6.6 10x3/uL (4.8-10.8)
[2018-10-17 06:40] LABS: ALBUMIN 1.9 g/dL (3.4-5.0); ALKALINE PHOSPHATASE 35 U/L (46-116); BILIRUBIN - TOTAL 0.18 mg/dL (0.2-1.3); CALCIUM 8.5 mg/dL (8.5-10.1); CARBON DIOXIDE 28.2 mmol/L (21.0-32.0); CHLORIDE - SERUM 104 mmol/L (98-107); CKMB 0.5 U/L (0.0-3.6); CREATINE KINASE 50 UL (21-232); POTASSIUM - SERUM 3.7 mmol/L (3.5-5.1); PROTEIN - SERUM 6.2 g/dL (6.4-8.2); SODIUM 139 mmol/L (136-145); UREA NITROGEN 29 mg/dL (7-18)
[2018-10-17 06:41] LABS: ALT (SGPT) 9 U/L (10-68); CALC OSMOLALITY 290 mosm/kg (275-300); CREATININE - SERUM 1.1 mg/dL (0.6-1.3); GLUCOSE 231 mg/dL (74-106); TROPONIN-I < 0.017 ng/mL (0.000-0.060); eGFR NON AFRICAN AMERICAN 69 mL/min (90-120)
[2018-10-18] VITALS (24 sets, daily range): BP systolic 127–195; BP diastolic 49–95
[2018-10-18 04:14] LABS: BASOPHILS 0 % (0-2); EOSINOPHILS 0.1 % (0-7); HEMOGLOBIN 8.6 g/dL (13.5-17.5); IMMATURE GRANULOCYTES 0.5 % (0-5); LYMPHOCYTES 6.2 % (15-50); MCH 24.4 pg (26.0-34.0); MCHC 29.7 g/dL (31.0-37.0); MCV 82.4 fL (80.0-100.0); MEAN PLATELET VOLUME 9.5 fL (7.4-10.4); MONOCYTES 3.7 % (2-11); NEUTROPHILS 89.5 % (40-80); PLATELET COUNT 261 10x3/uL (130-400); RBC 3.52 10x6/uL (4.20-6.10); WBC 7.8 10x3/uL (4.8-10.8)
[2018-10-18 04:28] LABS: ANION GAP 12.3 mmol/L (8-16); CALCIUM 8.4 mg/dL (8.5-10.1); CARBON DIOXIDE 27.6 mmol/L (21.0-32.0); CREATININE - SERUM 1.2 mg/dL (0.6-1.3); POTASSIUM - SERUM 3.9 mmol/L (3.5-5.1)
[2018-10-18 07:10] LABS: IMMUNOGLOBULIN A 354 mg/dL (61-437)
[2018-10-19] VITALS (23 sets, daily range): BP systolic 148–193; BP diastolic 60–103; Ht 182.9 cm; Wt 113.9 kg
[2018-10-19 07:20] LABS: BASOPHILS 0 % (0-2); EOSINOPHILS 0 % (0-7); HEMATOCRIT 29.8 % (42.0-54.0); IMMATURE GRANULOCYTES 0.3 % (0-5); LYMPHOCYTES 10.3 % (15-50); MCH 24.7 pg (26.0-34.0); MCHC 30.2 g/dL (31.0-37.0); MCV 81.6 fL (80.0-100.0); MEAN PLATELET VOLUME 9.7 fL (7.4-10.4); MONOCYTES 6.6 % (2-11); NEUTROPHILS 82.8 % (40-80); PLATELET COUNT 270 10x3/uL (130-400); RBC 3.65 10x6/uL (4.20-6.10); RDW 16.3 % (11.5-14.5)
[2018-10-19 07:46] LABS: ANION GAP 15.5 mmol/L (8-16); CALCIUM 8.7 mg/dL (8.5-10.1); CARBON DIOXIDE 24.6 mmol/L (21.0-32.0); CREATININE - SERUM 1.1 mg/dL (0.6-1.3); POTASSIUM - SERUM 4.1 mmol/L (3.5-5.1)
[2018-10-20] VITALS (22 sets, daily range): BP systolic 151–190; BP diastolic 56–97
[2018-10-20 03:09] LABS: IGG SUBCLASS 1 435 mg/dL (248-810); IGG SUBCLASS 2 122 mg/dL (130-555); IGG SUBCLASS 3 56 mg/dL (15-102); IGG SUBCLASS 4 13 mg/dL (2-96); IMMUNOGLOBULIN G 637 mg/dL (700-1600)
[2018-10-20 04:18] LABS: BASOPHILS 0 % (0-2); EOSINOPHILS 0 % (0-7); HEMATOCRIT 29.2 % (42.0-54.0); HEMOGLOBIN 9.3 g/dL (13.5-17.5); IMMATURE GRANULOCYTES 0.9 % (0-5); LYMPHOCYTES 10.8 % (15-50); MCH 25.1 pg (26.0-34.0); MCHC 31.8 g/dL (31.0-37.0); MCV 78.7 fL (80.0-100.0); MEAN PLATELET VOLUME 10.2 fL (7.4-10.4); MONOCYTES 6.5 % (2-11); NEUTROPHILS 81.8 % (40-80); PLATELET COUNT 280 10x3/uL (130-400); RBC 3.71 10x6/uL (4.20-6.10); WBC 5.4 10x3/uL (4.8-10.8)
[2018-10-20 05:09] LABS: CALC OSMOLALITY 287 mosm/kg (275-300); CALCIUM 8.4 mg/dL (8.5-10.1); CARBON DIOXIDE 28.1 mmol/L (21.0-32.0); CHLORIDE - SERUM 105 mmol/L (98-107); GLUCOSE 172 mg/dL (74-106); POTASSIUM - SERUM 4.4 mmol/L (3.5-5.1); SODIUM 141 mmol/L (136-145); UREA NITROGEN 21 mg/dL (7-18); eGFR NON AFRICAN AMERICAN 77 mL/min (90-120)
[2018-10-21] VITALS (14 sets, daily range): BP systolic 80–189; BP diastolic 52–98
[2018-10-21 03:11] LABS: IMMUNOGLOBULIN E 61 IU/mL (0-100)
[2018-10-21 04:19] LABS: BASOPHILS 0.2 % (0-2); EOSINOPHILS 0 % (0-7); HEMATOCRIT 29.6 % (42.0-54.0); HEMOGLOBIN 9.2 g/dL (13.5-17.5); IMMATURE GRANULOCYTES 1.8 % (0-5); LYMPHOCYTES 11.9 % (15-50); MCH 24.6 pg (26.0-34.0); MCHC 31.1 g/dL (31.0-37.0); MCV 79.1 fL (80.0-100.0); MEAN PLATELET VOLUME 9.5 fL (7.4-10.4); MONOCYTES 6.7 % (2-11); NEUTROPHILS 79.4 % (40-80); PLATELET COUNT 262 10x3/uL (130-400); RBC 3.74 10x6/uL (4.20-6.10); RDW 15.8 % (11.5-14.5); WBC 5.7 10x3/uL (4.8-10.8)
[2018-10-21 04:22] LABS: ANION GAP 11.5 mmol/L (8-16); CALCIUM 8.7 mg/dL (8.5-10.1); CARBON DIOXIDE 25.4 mmol/L (21.0-32.0); CREATININE - SERUM 1.1 mg/dL (0.6-1.3); POTASSIUM - SERUM 3.9 mmol/L (3.5-5.1)
[2018-10-22 04:32] VITALS: BP 165/63
[2018-10-22 05:58] LABS: BASOPHILS 0.2 % (0-2); EOSINOPHILS 0.6 % (0-7); HEMATOCRIT 28.1 % (42.0-54.0); HEMOGLOBIN 8.5 g/dL (13.5-17.5); IMMATURE GRANULOCYTES 2.2 % (0-5); LYMPHOCYTES 21.9 % (15-50); MCH 24.4 pg (26.0-34.0); MCHC 30.2 g/dL (31.0-37.0); MCV 80.7 fL (80.0-100.0); MEAN PLATELET VOLUME 9.6 fL (7.4-10.4); NEUTROPHILS 67.1 % (40-80); PLATELET COUNT 241 10x3/uL (130-400); RBC 3.48 10x6/uL (4.20-6.10); RDW 16.2 % (11.5-14.5); WBC 5.4 10x3/uL (4.8-10.8)
[2018-10-22 06:22] LABS: CALC OSMOLALITY 284 mosm/kg (275-300); CALCIUM 8.4 mg/dL (8.5-10.1); CARBON DIOXIDE 27.6 mmol/L (21.0-32.0); CHLORIDE - SERUM 107 mmol/L (98-107); GLUCOSE 97 mg/dL (74-106); POTASSIUM - SERUM 3.3 mmol/L (3.5-5.1); SODIUM 141 mmol/L (136-145); UREA NITROGEN 23 mg/dL (7-18); eGFR NON AFRICAN AMERICAN 77 mL/min (90-120)
[2018-10-22 09:00] VITALS: BP 175/68
[2018-10-22 12:30] VITALS: BP 174/56
[2018-10-22 16:17] VITALS: BP 166/62
[2018-10-22 20:27] VITALS: BP 143/54
[2018-10-22 23:49] VITALS: BP 147/84
[2018-10-23 04:16] VITALS: BP 114/72
[2018-10-23 07:47] LABS: BASOPHILS 0.2 % (0-2); EOSINOPHILS 1.3 % (0-7); HEMATOCRIT 29.9 % (42.0-54.0); IMMATURE GRANULOCYTES 1.9 % (0-5); MCH 24.4 pg (26.0-34.0); MCHC 30.1 g/dL (31.0-37.0); MEAN PLATELET VOLUME 9.8 fL (7.4-10.4); MONOCYTES 7.1 % (2-11); NEUTROPHILS 66.5 % (40-80); PLATELET COUNT 201 10x3/uL (130-400); RBC 3.69 10x6/uL (4.20-6.10); RDW 16.4 % (11.5-14.5); WBC 5.4 10x3/uL (4.8-10.8)
[2018-10-23 07:58] LABS: ALBUMIN 2.1 g/dL (3.4-5.0); ALKALINE PHOSPHATASE 57 U/L (46-116); ALT (SGPT) 14 U/L (10-68); BILIRUBIN - TOTAL 0.19 mg/dL (0.2-1.3); CALC OSMOLALITY 285 mosm/kg (275-300); CALCIUM 8.4 mg/dL (8.5-10.1); CARBON DIOXIDE 27.3 mmol/L (21.0-32.0); CHLORIDE - SERUM 107 mmol/L (98-107); CREATININE - SERUM 0.9 mg/dL (0.6-1.3); GLUCOSE 94 mg/dL (74-106); PROTEIN - SERUM 5.5 g/dL (6.4-8.2); SODIUM 142 mmol/L (136-145); UREA NITROGEN 20 mg/dL (7-18); eGFR NON AFRICAN AMERICAN 87 mL/min (90-120)
[2018-10-23 07:59] LABS: POTASSIUM - SERUM 3.8 mmol/L (3.5-5.1)
[2018-10-23 09:31] VITALS: BP 164/62
[2018-10-23 12:00] VITALS: BP 177/100
[2018-10-23 16:00] VITALS: BP 146/57
[2018-10-23 21:02] VITALS: BP 181/57
[2018-10-24] VITALS: BP 180/60
[2018-10-24 06:37] LABS: BASOPHILS 0.2 % (0-2); EOSINOPHILS 1.5 % (0-7); HEMOGLOBIN 8.6 g/dL (13.5-17.5); IMMATURE GRANULOCYTES 1.5 % (0-5); MCH 23.9 pg (26.0-34.0); MCHC 29.7 g/dL (31.0-37.0); MCV 80.6 fL (80.0-100.0); MEAN PLATELET VOLUME 9.7 fL (7.4-10.4); MONOCYTES 7.1 % (2-11); NEUTROPHILS 67.7 % (40-80); PLATELET COUNT 212 10x3/uL (130-400); RDW 16.2 % (11.5-14.5); WBC 4.8 10x3/uL (4.8-10.8)
[2018-10-24 06:58] LABS: ALKALINE PHOSPHATASE 76 U/L (46-116); ALT (SGPT) 14 U/L (10-68); BILIRUBIN - TOTAL 0.17 mg/dL (0.2-1.3); CALC OSMOLALITY 286 mosm/kg (275-300); CALCIUM 8.2 mg/dL (8.5-10.1); CHLORIDE - SERUM 107 mmol/L (98-107); CREATININE - SERUM 0.9 mg/dL (0.6-1.3); GLUCOSE 126 mg/dL (74-106); POTASSIUM - SERUM 3.6 mmol/L (3.5-5.1); PROTEIN - SERUM 5.1 g/dL (6.4-8.2); SODIUM 142 mmol/L (136-145); UREA NITROGEN 19 mg/dL (7-18); eGFR NON AFRICAN AMERICAN 87 mL/min (90-120)
[2018-10-24 09:39] VITALS: BP 184/58
[2018-10-24] MEDS ORDERED: DOXYCYCLINE HY100 M2 PO (11:19)
== END 2018-10-24 13:18 | disposition home health service (06) | DRG 871 ==
LOC: D.ER 10:10 → D.ICU 11:37 → D.MS 11:37 → D.EDHOLD 11:37 → D.ICU 13:28 → D.MS 10-21 15:19
PROVIDERS: Emergency Medicine; Family Medicine; Internal Medicine Pulmonary Disease
DX: A41.9 Sepsis, unspecified organism (principal); J96.01 Acute respiratory failure with hypoxia; J96.02 Acute respiratory failure with hypercapnia; J15.212 Pneumonia due to Methicillin resistant Staphylococcus aureus; R53.2 Functional quadriplegia; N17.9 Acute kidney failure, unspecified; I10 Essential (primary) hypertension; I25.10 Atherosclerotic heart disease of native coronary artery without angina pectoris; E11.42 Type 2 diabetes mellitus with diabetic polyneuropathy; E11.51 Type 2 diabetes mellitus with diabetic peripheral angiopathy without gangrene; E11.22 Type 2 diabetes mellitus with diabetic chronic kidney disease; I12.9 Hypertensive chronic kidney disease with stage 1 through stage 4 chronic kidney disease, or unspecified chronic kidney disease; N18.3 Chronic kidney disease, stage 3 (moderate); L89.152 Pressure ulcer of sacral region, stage 2

== ENCOUNTER → 2018-12-09 14:54 | Outpatient (CLI) | payer MEDICARE ==
[2018-10-19 08:41] VITALS: BMI 32.5
[~2018-12-09 14:54] MED LIST changes: +DOXYCYCLINE HY100 M2 PO
[2018-12-09 16:10] LABS: BASOPHILS 0.6 % (0-2); EOSINOPHILS 1.7 % (0-7); HEMATOCRIT 37.5 % (42.0-54.0); HEMOGLOBIN 11.6 g/dL (13.5-17.5); IMMATURE GRANULOCYTES 0.6 % (0-5); LYMPHOCYTES 20.6 % (15-50); MCH 24.1 pg (26.0-34.0); MCHC 30.9 g/dL (31.0-37.0); MEAN PLATELET VOLUME 9.9 fL (7.4-10.4); MONOCYTES 9.4 % (2-11); NEUTROPHILS 67.1 % (40-80); PLATELET COUNT 223 10x3/uL (130-400); RBC 4.81 10x6/uL (4.20-6.10); RDW 17.9 % (11.5-14.5); WBC 5.2 10x3/uL (4.8-10.8)
[2018-12-09 16:40] LABS: ALBUMIN 2.6 g/dL (3.4-5.0); ALKALINE PHOSPHATASE 54 U/L (46-116); ALT (SGPT) 21 U/L (10-68); BILIRUBIN - TOTAL 0.36 mg/dL (0.2-1.3); CALC OSMOLALITY 289 mosm/kg (275-300); CALCIUM 9.1 mg/dL (8.5-10.1); CARBON DIOXIDE 27.6 mmol/L (21.0-32.0); CHLORIDE - SERUM 105 mmol/L (98-107); GLUCOSE 120 mg/dL (74-106); POTASSIUM - SERUM 3.2 mmol/L (3.5-5.1); PRO BNP 68 pg/mL (0-450); PROTEIN - SERUM 7.1 g/dL (6.4-8.2); SODIUM 145 mmol/L (136-145); UREA NITROGEN 13 mg/dL (7-18); eGFR NON AFRICAN AMERICAN 77 mL/min (90-120)
[2018-12-09 16:54] LABS: APPEARANCE CLEAR (CLEAR); BILIRUBIN NEGATIVE (NEGATIVE); COLOR YELLOW (YELLOW); GLUCOSE NEGATIVE (NEGATIVE); KETONE NEGATIVE (NEGATIVE); NITRITE NEGATIVE (NEGATIVE); PROTEIN 1+ mg/dL (NEGATIVE); SPECIFIC GRAVITY 1.015 (1.005-1.020); UROBILINOGEN NORMAL (NORMAL)
== END | disposition home or self-care (01) ==
LOC: D.LABREF 14:54
PROVIDERS: Family Medicine
DX: J18.9 Pneumonia, unspecified organism (principal); A41.9 Sepsis, unspecified organism

== ENCOUNTER → 2018-12-09 16:02 | Outpatient (CLI) | payer MEDICARE ==
[2018-10-19 08:41] VITALS: BMI 32.5
== END | disposition home or self-care (01) ==
LOC: D.LABREF 16:02
DX: A41.9 Sepsis, unspecified organism (principal); J18.9 Pneumonia, unspecified organism

== ENCOUNTER 2019-01-07 12:52 | Emergency (ER) | payer MEDICARE, BC ==
[~2019-01-07] VITALS: Ht 182.9 cm; Wt 81.8 kg
[2019-01-07 12:55] VITALS: Ht 182.9 cm; Wt 81.8 kg
[2019-01-07 13:41] LABS: BASOPHILS 0.3 % (0-2); EOSINOPHILS 2.1 % (0-7); HEMATOCRIT 35.8 % (42.0-54.0); HEMOGLOBIN 10.4 g/dL (13.5-17.5); IMMATURE GRANULOCYTES 0.3 % (0-5); LYMPHOCYTES 15.4 % (15-50); MCH 23.8 pg (26.0-34.0); MCHC 29.1 g/dL (31.0-37.0); MCV 81.9 fL (80.0-100.0); MEAN PLATELET VOLUME 9.2 fL (7.4-10.4); MONOCYTES 7.3 % (2-11); NEUTROPHILS 74.6 % (40-80); PLATELET COUNT 255 10x3/uL (130-400); RBC 4.37 10x6/uL (4.20-6.10); RDW 17.8 % (11.5-14.5); WBC 6.2 10x3/uL (4.8-10.8)
[2019-01-07 13:51] LABS: INR 1.07 (0.85-1.17); PROTIME 13.4 SECONDS (11.6-15.0)
[2019-01-07 13:52] LABS: APTT 28.4 SECONDS (22.8-39.4)
[2019-01-07 14:01] LABS: ALBUMIN 2.5 g/dL (3.4-5.0); ALKALINE PHOSPHATASE 68 U/L (46-116); ALT (SGPT) 26 U/L (10-68); BILIRUBIN - TOTAL 0.27 mg/dL (0.2-1.3); CALC OSMOLALITY 291 mosm/kg (275-300); CALCIUM 8.5 mg/dL (8.5-10.1); CARBON DIOXIDE 23.9 mmol/L (21.0-32.0); CHLORIDE - SERUM 106 mmol/L (98-107); CREATININE - SERUM 1.6 mg/dL (0.6-1.3); GLUCOSE 141 mg/dL (74-106); POTASSIUM - SERUM 4.2 mmol/L (3.5-5.1); PROTEIN - SERUM 6.7 g/dL (6.4-8.2); SODIUM 142 mmol/L (136-145); UREA NITROGEN 32 mg/dL (7-18); eGFR NON AFRICAN AMERICAN 45 mL/min (90-120)
[2019-01-07 14:12] LABS: CKMB 1.2 U/L (0.0-3.6); CREATINE KINASE 167 UL (21-232); PRO BNP 186 pg/mL (0-450)
[2019-01-07 14:20] LABS: TROPONIN-I < 0.017 ng/mL (0.000-0.060)
[2019-01-07 16:34] VITALS: BP 142/88
== END 2019-01-07 16:34 | disposition home or self-care (01) ==
LOC: D.ER 12:52
PROVIDERS: Emergency Medicine
DX: J44.9 Chronic obstructive pulmonary disease, unspecified (principal); E11.9 Type 2 diabetes mellitus without complications; Z86.79 Personal history of other diseases of the circulatory system; R05 Cough; R06.2 Wheezing

== ENCOUNTER 2019-01-18 13:43 | Emergency (ER) | payer MEDICARE, BC ==
[~2019-01-18] VITALS: Ht 121.9 cm; Wt 112.7 kg
[2019-01-18 13:45] VITALS: Ht 121.9 cm; Wt 112.7 kg
[2019-01-18] MEDS ORDERED: VOLTAREN75 MG PO (17:22)
[2019-01-18] MEDS ORDERED: BACLOFEN20 M1 PO (17:22)
[2019-01-18 18:05] VITALS: BP 137/65
== END 2019-01-18 18:05 | disposition home or self-care (01) ==
LOC: D.ER 13:43
DX: M54.5 Low back pain (principal); M79.605 Pain in left leg

== ENCOUNTER 2019-02-05 12:32 | Inpatient (IN) | payer MEDICARE, BC ==
[~2019-02-05] VITALS: Ht 182.9 cm; Wt 96.5 kg
--- NOTE | ~2019-02-05 | HP ---
PATIENT: SUGAR LIVE MEDICAL RECORD: [id number] ACCOUNT: [id number] LOCATION:[facility] : 43 ADMISSION DATE: 02/05/19 PCP: ROLDAN SY MD HISTORY AND PHYSICAL EXAMINATION CHIEF COMPLAINT: Mr. Live is a 73-year-old male admitted for suicidal ideation with a reported threat to shoot his then himself. HISTORY OF PRESENT ILLNESS: This is a 73-year-old male admitted from home where his of 17 years takes care of him. The patient admits that he has had a rather stressful week. He has been dealing with a grandson that sounds like has substance problem that the patient admits that he enables. The patient concentrates mainly, at first, on how badly he has been treated in the hospital, but then will go on to say that he does admit to suicidal threats, but does not endorse a threat to shoot his . Apparently in the group room this morning when he did not immediately get his needs met to his fashion, he had said "I am just going to have to ." He admits that he will use the threat of suicidal ideation often. He states that lately he has been having trouble sleeping that he took too many pain pills. He is in charge of them himself apparently. He denies anxiety. He denies current suicidal or homicidal ideation and primarily seems focused on his discharge. PAST PSYCHIATRIC HISTORY: He denies any inpatient psychiatric meds. His psych meds include Cymbalta 60 mg p.o. daily, Zoloft 50 mg p.o. every day, and trazodone 50 mg t.i.d. PAST MEDICAL HISTORY: Significant for peripheral vascular disease, diabetes, essential hypertension, gout, chronic kidney disease stage III, anemia, weakness, coronary artery disease, COPD, CHF, altered mental status, decubitus ulcer of the sacral region again from not letting his turn him for the 2 or 3 days prior to admission, and bilateral AKAs. MEDICATIONS: His admission meds included TriCor 145 mg p.o. q.h.s., Pravachol 40 mg q.h.s., Protonix 40 mg b.i.d., Plavix 75 mg every day, Hyzaar 100/25 one p.o. every day, Roxicodone 15 mg one p.o. q.4 hours p.r.n., Ativan 1 p.o. t.i.d. p.r.n., potassium chloride 10 mEq b.i.d., Lyrica 75 mg t.i.d., furosemide 40 mg every day, Robaxin 750 mg q.i.d., and Cymbalta 60 mg q.h.s., as well as sertraline 50 mg every day and trazodone 50 mg t.i.d. although the family practice reports those latter two having recently been discontinued. FAMILY HISTORY: Positive for grandson with substance issues according to the patient, cardiovascular disease, and hypertension. SOCIAL HISTORY: The patient had built [employer], retired, had been to his first for about 20 years ago. By the time he retired, she left him. He remarried 17 years ago. He had 4 children with his first . He states that since his bilateral AKAs, he has felt useless and nonproductive. He does report basically enabling his adult grandson and very upset the last week about this grandson taking his drugs. Drug and alcohol: He reports being a drinker in the past, but has not drank for many years and does report overtaking his opiates lately. MENTAL STATUS EXAMINATION: This is a 73-year-old obese male with bilateral AKAs, who is primarily cooperative to interview again mainly thinking about being discharged. His speech is regular rate and rhythm. His mood is not HISTORY AND PHYSICAL [id number] SUGAR LIVE RAY directly laced with affect full range. THOUGHT PROCESS: Rational, relevant, and goal directed. THOUGHT CONTENT: Negative for suicidal or homicidal ideation, auditory or visual hallucinations, delusions. COGNITIVE EXAM: After much prodding, he knew he was at [facility] that was [place], [place]. He did not know the month, he thought it was December. He did not know the year. After much prodding, thought it was 1999. When asked who the president was, he said Yassine and had no idea of the day of the week. ASSESSMENT: MDE mild to moderate, minor neurocognitive disorder, rule out major neurocognitive disorder, opiate use disorder mild. PLAN: We will admit to [facility]. We will discontinue Zoloft and trazodone and increase Cymbalta to 90 mg. We will also start Aricept 5 mg q.h.s. We will get further information from the family as to history and discharge planning. Case discussed. STRENGTH: The patient is able to verbalize. WEAKNESSES: Memory deficits and overuse of his opiates. Case discussed with nursing. Chart was reviewed and the patient interviewed. Anticipated length of stay is 7 to 10 days. TRANSINT:[id number] Voice Confirmation ID: [id number] DOCUMENT ID: [id number] GARRETT JONES MD CC: [id number] DICTATION DATE: 02/06/19 1033 CIRCUS HAND: 02/06/19 1325 ADM IN [facility] [address] [id number]
[~2019-02-05 12:32] MED LIST changes: +BACLOFEN20 M1 PO; +VOLTAREN75 MG PO
[2019-02-05 14:16] LABS: BASOPHILS 0.4 % (0-2); EOSINOPHILS 0.8 % (0-7); HEMATOCRIT 40.4 % (42.0-54.0); HEMOGLOBIN 12.4 g/dL (13.5-17.5); IMMATURE GRANULOCYTES 0.4 % (0-5); LYMPHOCYTES 12.8 % (15-50); MCH 23.6 pg (26.0-34.0); MCHC 30.7 g/dL (31.0-37.0); MCV 76.8 fL (80.0-100.0); MEAN PLATELET VOLUME 9.4 fL (7.4-10.4); MONOCYTES 3.7 % (2-11); NEUTROPHILS 81.9 % (40-80); RBC 5.26 10x6/uL (4.20-6.10); RDW 17.5 % (11.5-14.5)
[2019-02-05 14:23] LABS: PLATELET COUNT 390 10x3/uL (130-400)
[2019-02-05 14:31] LABS: ALBUMIN 2.7 g/dL (3.4-5.0); ANION GAP 17.6 mmol/L (8-16); BILIRUBIN - TOTAL 0.38 mg/dL (0.2-1.3); CALCIUM 9.6 mg/dL (8.5-10.1); CARBON DIOXIDE 25.8 mmol/L (21.0-32.0); CREATININE - SERUM 1.2 mg/dL (0.6-1.3); POTASSIUM - SERUM 4.4 mmol/L (3.5-5.1); PROTEIN - SERUM 8.8 g/dL (6.4-8.2)
[2019-02-05 14:38] LABS: APPEARANCE CLEAR (CLEAR); BILIRUBIN NEGATIVE (NEGATIVE); COLOR STRAW (YELLOW); GLUCOSE NEGATIVE (NEGATIVE); KETONE MODERATE mg/dL (NEGATIVE); NITRITE NEGATIVE (NEGATIVE); PROTEIN TRACE mg/dL (NEGATIVE); SPECIFIC GRAVITY 1.025 (1.005-1.020); UROBILINOGEN NORMAL (NORMAL)
--- NOTE | 2019-02-05 15:00 | NUR ---
DUE TO PATIENT IMOBILITY AND SKIN BREAKDOWN IN COCCYX AREA 16G FRIEND CAT PLACED IN BLADDER TO GRAVITY DRAIN, CLEAR YELLOW URINE RETURN NOTED.
--- NOTE | 2019-02-05 16:15 | NUR ---
ARRIVED TO UNIT VIA STRETCHER FROM ER. ER NURSE STATES THAT PATIENT HAS HAD A CHANGE IN MENTAL STATUS, NOT ALLOWING SELF TO BE CHANGED AND WREAKED OF URINE UPON ARRIVAL. FAMILY VERIFYS THIS FACT. IT WAS REPORTED THAT PATIENT BECAME ANGRY AT AND THREATENED TO SHOOT HER THEN SHOOT HIMSELF. ER NURSE REPORTED THAT PATIENT WAS CURSING WHILE IN ER, BUT EVENTUALLY CALMED DOWN. PATIENT BILATERAL AMPUTEE. PATIENT TRANSFERRED FROM STRETCHER INTO BED. PATIENT UNABLE TO OFFER ASSISTANCE WITH TRANSFERS. PATIENT IS ALERT AND PLEASANT AT THIS TIME. VS MEASURED - T 97.5, B/P 202/97, P 91, SPO2 97% ROOM AIR, R 20. DENIES PAIN, NO S/S DISTRESS.
[2019-02-05 18:05] VITALS: BP 202/97; BMI 74.9
[2019-02-05 21:03] VITALS: BP 155/70
--- NOTE | 2019-02-06 00:37 | NUR ---
RECEIVED IN PATIENT ROOM. RESTING IN BED WITH EYES OPEN. CALM AND COOPERATIVE WITH CARE AND ASSESSMENT. NO AGGRESSIVE BEHAVIORS. NO AGITATION. DENIES THOUGHTS OF SELF HARM. REDIRECT AND REORIENT NEEDED. RESTING IN BED WITH EYES CLOSED AT THIS TIME. CONTINUE PLAN OF CARE.
[2019-02-06 06:38] LABS: BASOPHILS 0.5 % (0-2); EOSINOPHILS 1.1 % (0-7); HEMATOCRIT 40.8 % (42.0-54.0); HEMOGLOBIN 12.8 g/dL (13.5-17.5); IMMATURE GRANULOCYTES 0.3 % (0-5); LYMPHOCYTES 14.2 % (15-50); MCH 23.9 pg (26.0-34.0); MCHC 31.4 g/dL (31.0-37.0); MCV 76.1 fL (80.0-100.0); MEAN PLATELET VOLUME 9.6 fL (7.4-10.4); MONOCYTES 5.8 % (2-11); NEUTROPHILS 78.1 % (40-80); PLATELET COUNT 370 10x3/uL (130-400); RBC 5.36 10x6/uL (4.20-6.10); RDW 17.9 % (11.5-14.5); WBC 9.5 10x3/uL (4.8-10.8)
[2019-02-06 07:00] VITALS: BP 167/84
[2019-02-06 07:02] LABS: ALBUMIN 2.8 g/dL (3.4-5.0); ANION GAP 18.5 mmol/L (8-16); BILIRUBIN - TOTAL 0.36 mg/dL (0.2-1.3); CALCIUM 9.9 mg/dL (8.5-10.1); CARBON DIOXIDE 25.3 mmol/L (21.0-32.0); CREATININE - SERUM 1.2 mg/dL (0.6-1.3); LDL-HDL RATIO 1.6 ratio (1.5-3.5); POTASSIUM - SERUM 3.8 mmol/L (3.5-5.1); PROTEIN - SERUM 8.6 g/dL (6.4-8.2); THYROID STIMULATING HORMONE 1.44 uIU/mL (0.36-3.74)
--- NOTE | 2019-02-06 08:00 | NUR ---
IS ORIENTED TO SELF ,PLACE BUT DISORIENTED TO TIME.IS BILAT AKA AND REQUIRES A EDIL LIFT TO TRANSFER TO CHAIR.DENIES THOUGHTS OF KILLING SELF OR SPOUSE NOW.STATES"things just got out of hand".WILL CONTINUE WITH PLAN OF CARE,MONITOR FOR SAFETY AND CHANGES.
[2019-02-06 08:39] VITALS: BMI 74.9
--- NOTE | 2019-02-06 12:00 | NUR ---
INCONTINENT OF LARGE LOOSE STOOL.CLEANED AND LINEN CHANGE DONE.PO MEDS TAKEN WITHOUT DIFFICULTY.
[2019-02-06 12:38] VITALS: Ht 182.9 cm; Wt 96.5 kg
--- NOTE | 2019-02-06 15:07 | NUR ---
OXYCODONE IR 15MG PO FOR C/O LEG AND BUTTOCK PAIN RATED A 7.PLACED ON BEDPAN PER HIS REQUEST.
--- NOTE | 2019-02-06 18:00 | NUR ---
APPROXIMATELY 500ML EMESIS OF UNDIGESTED FOOD OBSERVED.COMPLETE LINEN CHANGE AND PARTIAL BED BATH GIVEN.DENIES NAUSEA POST EMESIS.450ML YELLOW URINE EMPTIED FROM FRIEND CATHETER.
[2019-02-06 20:30] VITALS: BP 147/82
--- NOTE | 2019-02-07 05:11 | NUR ---
RECEIVED IN PATIENT ROOM. RESTING IN BED WITH EYES OPEN. CALM AND COOPERATIVE WITH CARE AND ASSESSMENT. DENIES THOUGHTS OF SELF HARM. REDIRECT AND REORIENT NEEDED. RESTING IN BED WITH EYES CLOSED AT THIS TIME. CONTINUE PLAN OF CARE.
[2019-02-07 08:00] VITALS: BP 185/78
--- NOTE | 2019-02-07 08:00 | NUR ---
PATIENT ASSITED INTO RECLINER WITH EGGCRATE VIA HOHLER LIFT. CALM AND COOPERATIVE WITH CARE AND ASSESSMENT. REDIRECT AND REORIENT NEEEDED. WILL MONITOR FOR CHANGES AND CONTINUE POC.
[2019-02-07 11:00] LABS: FOLATE (FOLIC ACID) - SERUM 7.3 ng/mL (>3.0); RAPID PLASMA REAGIN Non Reactive (Non Reactive); VITAMIN D 25 HYDROXY 23.3 ng/mL (30.0-100.0)
[2019-02-07 19:32] VITALS: BP 149/53
[2019-02-08 08:00] VITALS: BP 134/60
--- NOTE | 2019-02-08 10:09 | NUR ---
Nutrition Follow Up: Chart reviewed. Per nursing skin assmt pt with no pressure ulcer at this time. Diet: Regular PO Intake: 33% meal avg BM: 02/06/19 Labs reviewed Meds noted including Lasix Rec continue regular diet. Rec consider an appetite stimulant. Will d/c Aaron. RD following.
--- NOTE | 2019-02-08 12:57 | PN ---
PATIENT:SUGAR LIVE MEDICAL RECORD: [id number] LOCATION:[facility] ADMISSION DATE: 02/05/19 PROGRESS NOTE DATE OF SERVICE: 02/07/2019 SUBJECTIVE: The patient's case was discussed with staff. He has no new complaint. OBJECTIVE: The patient has a depressed mood with very poor insight about his situation. He is tearful when I speak to him about his background. ASSESSMENT: No change in diagnoses. PLAN: The patient is being treated with Cymbalta at what is probably an inadequate dose, but I am not sure how long he has been on that dose. I will try to find out and if reasonable will increase the dose of the Cymbalta. TRANSINT:[id number] Voice Confirmation ID: [id number] DOCUMENT ID: [id number] RAFIA DEE MD at 1257 CC: [id number] DICTATION DATE: 02/07/19 1010 LEAD SCIENTIST: 02/07/19 1448 ADM IN [id number] [place] [address]
--- NOTE | 2019-02-08 17:00 | NUR ---
PATIENT IS AWAKE AND ALERT, CALM AND COOPERATIVE WITH CARE AND ASSESSMENT, SEEMS TO BE IN LESS PAIN TODAY, FACE RELAXD IN EXPRESSION, REPOSITIONED FREQUENTLY IN RECLINER WITH EGGCRATE FOR COMFORT. MONITOR FOR SAFETY AND WILL FOLLOW POC.
[2019-02-08 20:00] VITALS: BP 128/55
--- NOTE | 2019-02-09 00:38 | NUR ---
B) Patient is alert and oriented to person and place, calm and cooperative, impatient at times, no S.I noted I) Administered scheduled medications as ordered, monitored for safety R) Mediation compliant, resting with eyes closed now, P) Continue plan of care.
[2019-02-09 07:37] LABS: BASOPHILS 0.2 % (0-2); EOSINOPHILS 0.9 % (0-7); HEMATOCRIT 33.1 % (42.0-54.0); HEMOGLOBIN 10.5 g/dL (13.5-17.5); IMMATURE GRANULOCYTES 0.2 % (0-5); LYMPHOCYTES 10.5 % (15-50); MCH 23.7 pg (26.0-34.0); MCHC 31.7 g/dL (31.0-37.0); MCV 74.7 fL (80.0-100.0); MEAN PLATELET VOLUME 9.3 fL (7.4-10.4); MONOCYTES 5.7 % (2-11); NEUTROPHILS 82.5 % (40-80); RBC 4.43 10x6/uL (4.20-6.10); RDW 17.9 % (11.5-14.5); WBC 12.9 10x3/uL (4.8-10.8)
[2019-02-09 07:42] LABS: PLATELET COUNT 217 10x3/uL (130-400)
[2019-02-09 07:55] LABS: ALBUMIN 2.3 g/dL (3.4-5.0); ANION GAP 15.6 mmol/L (8-16); BILIRUBIN - TOTAL 0.43 mg/dL (0.2-1.3); CALCIUM 8.7 mg/dL (8.5-10.1); CARBON DIOXIDE 24.6 mmol/L (21.0-32.0); CREATININE - SERUM 2.2 mg/dL (0.6-1.3); POTASSIUM - SERUM 4.2 mmol/L (3.5-5.1); PROTEIN - SERUM 7.3 g/dL (6.4-8.2)
[2019-02-09 08:30] VITALS: BP 146/77
--- NOTE | 2019-02-09 10:30 | NUR ---
RECEIVED PATIENT IN DINING ROOM FOR B'FAST, ALERT, CALM, COOPERATIVE, QUIET BUT SPEAKS WHEN SPOKEN TO AND CARRIES ON CONVERSATION WITH DIFFICULTY. MEDS ADMIN PER ORDERS WITH COMPLETE COMPLIANCE NOTED. COOPERATIVE WITH STAFF REQUESTS. DEPRESSED MOOD. CONT POC INCLUDING MEDS AND GROUP THERAPY DIRECTED.
--- NOTE | 2019-02-09 12:29 | PN ---
PATIENT:SUGAR LIVE MEDICAL RECORD: [id number] LOCATION:[facility] ADMISSION DATE: 02/05/19 PROGRESS NOTE DATE OF SERVICE: 02/08/2019 SUBJECTIVE: The patient's case was discussed with staff. He has no new complaint. OBJECTIVE: The patient's appetite has been poor, that is of concern, but in actuality he is obese, so I am not concerned about short-term reduction in his oral intake. Unfortunately, he is displaying a very depressed mood, but denying that he would seek to harm himself or others. He has not been agitated or threatening to anyone here. ASSESSMENT: 1. Major depression. 2. Vascular dementia. PLAN: At this time, the patient's Cymbalta will be increased from 60 mg to 90 mg daily for its antidepressant effect. He will be monitored for clinical changes associated with its use. His long-term prognosis is guarded. TRANSINT:[id number] Voice Confirmation ID: [id number] DOCUMENT ID: [id number] RAFIA DEE MD at 1229 CC: [id number] DICTATION DATE: 02/08/19 1544 ACUTE CARE OCCUPATIONAL THERAPIST: 02/08/19 1716 ADM IN [id number] [place] [address]
[2019-02-09 20:30] VITALS: BP 139/73
--- NOTE | 2019-02-10 04:29 | NUR ---
B) Patient is alert and oriented to person, place and time, calm and cooperative this shift, I) Administered scheduled medicaytions as ordered, monitored IV fluids, monitored Goss, R) Medication compliant, follows instruction, total care P) Continue plan of care.
--- NOTE | 2019-02-10 08:50 | NUR ---
PT SITTING IN RECLINER CHAIR IN DAY AREA. RESP EVEN AND NONLABORED. NO ACUTE DISTRESS NOTED. PT C/O OF PAIN TO BUTTOCK AREA. PT HAS FRIEND CATHETER, SMALL TEAR TO R BUTTOCK. DRESSING APPLIED. WILL CONT TO MONITOR Q 15 MINS FOR SAFETY.
[2019-02-10 09:02] VITALS: BP 158/74
[2019-02-10 10:11] LABS: CALCIUM 9.1 mg/dL (8.5-10.1); CARBON DIOXIDE 23.8 mmol/L (21.0-32.0); CREATININE - SERUM 1.7 mg/dL (0.6-1.3); POTASSIUM - SERUM 3.8 mmol/L (3.5-5.1)
--- NOTE | 2019-02-10 12:10 | NUR ---
LUNCH TRAY ARRIVED, PATIENT REFUSED MEAL DUE TO DIARRHEA. PATIENT OFFERED JELLO WHICH HE ACCEPTED. TWO CONTAINERS OF JELLO PROVIDED.
--- NOTE | 2019-02-10 12:35 | NUR ---
PATIENT OFFERED MEAL TRAY ONCE AGAIN. PATIENT STATED, "WELL I MAY EAT A BITE OF FISH." TRAY SET UP, CHRIS REFUSED, BUT PATIENT DID REQUEST TARTAR SAUCE WHICH WAS PROVIDED BY THIS NURSE. PATIENT ATE APPROX 30 % OF MEAL.
--- NOTE | 2019-02-10 13:58 | PN ---
PATIENT:SUGAR LIVE MEDICAL RECORD: [id number] LOCATION:[facility] ADMISSION DATE: 02/05/19 PROGRESS NOTE DATE OF SERVICE: 02/09/2019 SUBJECTIVE: The patient's case was discussed with staff. He has no new complaint. OBJECTIVE: The patient is in good behavioral control. He has poor insight about his condition. He is clearly profoundly depressed. He is denying that he would seek to harm himself today. ASSESSMENT: 1. Major depression. 2. Vascular dementia. PLAN: Current medicines have been reviewed and will be maintained. Long-term prognosis is guarded. TRANSINT:[id number] Voice Confirmation ID: [id number] DOCUMENT ID: [id number] RAFIA DEE MD at 1358 CC: [id number] DICTATION DATE: 02/09/19 1308 STUDIO PRODUCER: 02/09/19 1323 ADM IN [facility] [address] [place] [address]
--- NOTE | 2019-02-10 15:20 | NUR ---
PATIENT RANG WHALEY AND REQUESTED WATER. LARGE CUP OF ICE WATER PROVIDED. PATIENT WAS APPRECIATIVE.
--- NOTE | 2019-02-10 16:00 | NUR ---
PATIENT RANG WHALEY AND REQUESTED TO GET OUT OF BED. OCCUPATIONAL THERAPIST HOME BASED NOTIFIED.
--- NOTE | 2019-02-10 17:30 | NUR ---
PATIENT REQUESTED TO CALL . PORTABLE PHONE PROVIDED AND DIALED FOR PATIENT. PATIENT HAD LENGTHY CONVERSATION WITH .
--- NOTE | 2019-02-10 18:45 | NUR ---
PT IN BED WITH EYES OPEN. RESP EVEN AND NONLABORED. NO ACUTE DISTRESS NOTED. PT C/O OF PAIN TO BUTTOCKS AREA WHEN IN CHAIR AND DURING PERICARE. NURSE NOTED SMALL AREA IN COCCYX AREA WITH OPEN AREA NOTED WITH REDNESS. AREA DRESSED WITH CREAM APPLIED. NEW ORDER FOR CREAM TO BUTTOCKS. AWAITING FROM PHARMACY. D/C'D LINZESS DUE TO LOOSE BM'S. PT HAD A X-RAY AND BLOOD DRAWN THIS SHIFT. PT RESTED IN BED MOST OF THE DAY DUE TO RED AND PAINED AREA TO BUTTOCKS. REPORTED LAB FINDINGS TO Talat THOMAS'S BUN-73, CREATININE-1.7. THIS NURSE EXPLAINED TO PT THE UNDERSTANDING BEHIND PT BEING IN THE BED THIS SHIFT. PT EXPRESSED UNDERSANDING AT THE TIME. PT ALSO C/O TO STAFF THAT WE WERE TO ROUGH DURING PERICARE CHANGES. STAFF EXPLAINED THE NEED TO ROLL PT IN ORDER TO PERFORM PERICARE. PT EXPRESSED UNDERSTANDING. PT DID STATE AT THAT TIME HE WAS USELESS AND NOBODY WANTED HIM AROUND AND HE THOUGHT HE WOULD GET TO AND HE ENDED UP HERE. THIS NURSE EXPLAINED TO PT ABOUT THE REASON HE WAS ADMITTED TO THE UNIT. PT STILL DID NOT WANT TO BE ALIVE. PT STATED HE DID NOT WANT TO BE A BOTHER AND STAFF EXPLAIN TO PT THAT HE WAS NOT A BOTHER. PT STATED THAT HE WOULD RING THE WHALEY AND NOT GET ANY HELP. STAFF EXPLAINED TO PT THAT IF THE ISNT HEARD TO RING THE WHALEY AGAIN. WILL REPLAY TO DRIED FRUIT WASHER. WILL CONT TO MONITOR Q 15 MINS FOR SAFETY.
[2019-02-10 20:09] VITALS: BP 152/77
--- NOTE | 2019-02-11 03:19 | NUR ---
B) Patient is alert and orientedd to person and place, calm and cooperative, total assist, bilateral AKA, Goss cath, I) Administered scheduled medications as ordered, PRN Oxycodone 15 mg PO given at 01:17 for back pain, R) Mediation compliant, resting now quietly in his bed, P) Continue plan of care.
[2019-02-11 07:08] LABS: BASOPHILS 0.4 % (0-2); EOSINOPHILS 2.2 % (0-7); HEMATOCRIT 33.9 % (42.0-54.0); HEMOGLOBIN 10.6 g/dL (13.5-17.5); LYMPHOCYTES 20.1 % (15-50); MCH 23.6 pg (26.0-34.0); MCHC 31.3 g/dL (31.0-37.0); MCV 75.3 fL (80.0-100.0); MONOCYTES 7.3 % (2-11); PLATELET COUNT 250 10x3/uL (130-400); RDW 18.3 % (11.5-14.5)
[2019-02-11 07:10] LABS: WBC 6.9 10x3/uL (4.8-10.8)
--- NOTE | 2019-02-11 07:50 | NUR ---
REC'D PT SITTING IN BED WITH EYES CLOSED. RESP EVEN AND NONLABORED. RESP EVEN AND NONLABORED. PT IS ALERT AND ORIENTED TO PERSON, PLACE AND TIME. CALM AND COOPEATIVE AT THIS TIME. TOTAL ASSIST, BILATERAL BKA, FLOEY CATH. WILL CONT TO MONTIOR Q 15 MINS FOR SAFETY.
[2019-02-11 08:00] VITALS: BP 166/74
[2019-02-11 08:06] LABS: ANION GAP 14.7 mmol/L (8-16); CALCIUM 8.9 mg/dL (8.5-10.1); CARBON DIOXIDE 24.8 mmol/L (21.0-32.0); POTASSIUM - SERUM 3.5 mmol/L (3.5-5.1)
[2019-02-11 08:07] LABS: CREATININE - SERUM 1.2 mg/dL (0.6-1.3)
--- NOTE | 2019-02-11 09:39 | PN ---
PATIENT:SUGAR LIVE MEDICAL RECORD: [id number] LOCATION:[facility] ADMISSION DATE: 02/05/19 PROGRESS NOTE DATE OF SERVICE: 02/10/2019 SUBJECTIVE: The patient's case was discussed with staff. He has no new complaint. OBJECTIVE: The patient has a depressed mood and is withdrawn. Also appears, he is developing something medically. He is having some diarrhea and the primary care doctor has ordered a series of x-rays and labs. ASSESSMENT: Major depression. PLAN: The patient will be maintained on current psychiatric meds. Supportive and educational interventions were made. Long-term prognosis is guarded. TRANSINT:[id number] Voice Confirmation ID: [id number] DOCUMENT ID: [id number] RAFIA DEE MD at 0939 CC: [id number] DICTATION DATE: 02/10/19 1413 EMBOSSER OPERATOR: 02/10/19 1534 ADM IN [id number] [id number]
--- NOTE | 2019-02-11 15:50 | NUR ---
THE PATIENTS SPOUSE IS HERE AND SHE BROUGHT TWO DIET COKES, HAD TO EXPLAIN THAT SHE IS NOT ABLE TO BRING ANY DRINKS OR FOOD. DID PROVIDE HER PAPERWORK WITH THE RULES AND REGULATIONS. SHE SAID "SO I CAN'T BRING HIM LOBSTER FOR HIS BIRTHDAY?" SHE LAUGHED. SHE IS PLEASANT AND UNDERSTANDING, BUT SHE WAS TOLD SHE COULD BRING THE SOFT DRINKS YESTERDAY.
--- NOTE | 2019-02-11 18:39 | NUR ---
PT SITTING IN CHAIR WITH EYES OPEN. RESP EVEN AND NONLABORED. PT C/O OF PAIN THIS SHIFT. PT RECEIVED OXYCODONE 15 MG @ 1104. PT DOES RECIEVE PAIN AND MUSCLE RELAXERS SCHEDULED. PT IS BILATERAL BKA, FRIEND CATH, WITH RED AND A OPEN AREA TO COCCYX. CREAM APPLIED AND PT ON A EGG CRATE SEAT. PT C/O TO STAFF WE TREAT HIM LIKE SHIT AND THAT WE SHOULD TAKE CARE OF OUR OTHER PTS LATER AND HIM FIRST. HE SHOULD COME FIRST. NURSE EXPLAINED TO PT WE HAVE TO TAKE CARE OF ALL OUR PATIENTS. PT DID NOT VERBALIZE UNDERSTANDING OF THAT. WILL REPORT TO NEXT SHIFT. PT MED COMPLIANT THIS SHIFT. VERBALIZED WANTING TO BE THIS SHIFT. UNABLE TO REDIRECT PT FROM CONVERSATION. WILL CONT TO MONITOR Q 15 MINS FOR SAFETY.
[2019-02-11 19:57] VITALS: BP 150/80
--- NOTE | 2019-02-12 03:56 | NUR ---
B) Patient is alert and oriented X 3, calm and cooperative, total care, I) Administered scheduled medications as ordered, monitored for needs, R) Medication compliant, resting quietly in his bed, P) Copntinue plan of care.
[2019-02-12 07:00] VITALS: BP 162/79
--- NOTE | 2019-02-12 07:45 | NUR ---
PT IS ALERT AND ORIENTED WITH CONFUSION NOTED. PT CALM AND COOPERATIVE WITH ASSESSMENT. PRESCRIBED MEDS PROVIDED. MED COMPLIANT. FALL PRECAUTIONS IN PLACE. REDIRECT AND REORIENT NEEDED. WILL CPOC.
[2019-02-12 10:14] LABS: CALC OSMOLALITY 278 mosm/kg (275-300); CALCIUM 8.6 mg/dL (8.5-10.1); CHLORIDE - SERUM 102 mmol/L (98-107); GLUCOSE 125 mg/dL (74-106); POTASSIUM - SERUM 3.5 mmol/L (3.5-5.1); SODIUM 137 mmol/L (136-145); UREA NITROGEN 24 mg/dL (7-18); eGFR NON AFRICAN AMERICAN 77 mL/min (90-120)
--- NOTE | 2019-02-12 10:31 | PN ---
PATIENT:SUGAR LIVE MEDICAL RECORD: [id number] LOCATION:[facility] ADMISSION DATE: 02/05/19 PROGRESS NOTE DATE OF SERVICE: 02/11/2019 SUBJECTIVE: The patient's case was discussed with staff. He has no new complaint. OBJECTIVE: The patient is significantly impaired and profoundly depressed. He denies that he would seek to harm himself. ASSESSMENT: 1. Major depression. 2. Vascular dementia. PLAN: Current medicines have been reviewed and will be maintained. Long-term prognosis is guarded. TRANSINT:[id number] Voice Confirmation ID: [id number] DOCUMENT ID: [id number] RAFIA DEE MD at 1031 CC: [id number] DICTATION DATE: 02/11/19 1047 DEPORTATION OFFICER: 02/11/19 1130 ADM [address] [place] [address]
--- NOTE | 2019-02-12 16:31 | NUR ---
DURING PT CARE PT BECAME VERBALLY AGGRESSIVE WITH NURSE STATING "EVERYTIME Y'ALL CHANGE ME Y'ALL ARE ROUGH WITH ME AND THROW ME AROUND." STAFF ATTEMPTED SEVERAL TIMES THAT WE HAVE TO ROTATE PT IN ORDER TO CLEAN PT. PT STATED "IF Y'ALL QUIT LEAVING ME DIRTY MY ASS WOULDN'T STING SO BAD. Y'ALL JUST LEAVE THAT SHIT ON ME." STAFF ATTEMPTED TO EXPLAIN TO PT HE HAD BEEN CHANGE AND REPOSTIONED SEVERAL TIMES THIS SHIFT. PT CONTINUED TO STATE THAT THE STAFF WAS LEAVING HIM DIRTY, NOT BEING NICE TO HIM, AND TURNING HIM TO HARD. STAFF ATTEMPTED TO EXPLAIN THAT PROPER STEPS WERE BEING TAKEN TO ENSURE HE WAS NOT DIRTY. PT STATED "WELL IM TELLING MY TO COME GET ME THE HELL OUT OF HERE." NURSE EXPLAINED TO PT HE COULD SPEAK WITH THE DIRECTOR OR THE DOCTOR IN THE MORNING. WILL CONT TO MONITOR Q 15 MINS FOR SAFETY.
[2019-02-12 20:07] VITALS: BP 179/80
--- NOTE | 2019-02-13 03:09 | NUR ---
RECEIVED IN DAYROOM. RESTING IN RECLINER AND WATCHING TV. CALM AND COOPERATIVE WITH CARE AND ASSESSMENT. DENIES THOUGHTS OF SELF HARM. DENIES WANTING TO HARM HIS . REDIRECT AND REORIENT NEEDED. RESTING IN BED WITH EYES CLOSED AT THIS TIME. CONTINUE PLAN OF CARE.
[2019-02-13 06:42] LABS: ALBUMIN 2.4 g/dL (3.4-5.0); BILIRUBIN - TOTAL 0.21 mg/dL (0.2-1.3); CALCIUM 9.1 mg/dL (8.5-10.1); CARBON DIOXIDE 26.6 mmol/L (21.0-32.0); CREATININE - SERUM 1.2 mg/dL (0.6-1.3); POTASSIUM - SERUM 3.6 mmol/L (3.5-5.1); PROTEIN - SERUM 6.3 g/dL (6.4-8.2)
[2019-02-13 08:10] VITALS: BP 169/74
--- NOTE | 2019-02-13 13:56 | NUR ---
Nutrition Follow Up: Chart reviewed Diet: Regular; Ensure TID PO Intake: 39% meal avg BM: 02/12/19 Labs reviewed Meds noted including Megace, Lasix Rec continue curretn diet, supplement regimen. RD following.
--- NOTE | 2019-02-13 17:10 | NUR ---
PATIENT IS ALERT AND ORIENTED X 3, CALM AND COOPERATIVE WITH ASSESSMENT, TOTAL CARE, MONITOR FOR SAFETY AND NEEDS, COMPLIANT WITH MEDICATIONS, REDIRECT NEEDED. WILL CONTINUE PLAN OF CARE.
--- NOTE | 2019-02-14 04:50 | NUR ---
RECEIVED IN PATIENT ROOM. RESTING IN BED WITH EYES CLOSED. RESPONDS TO VOICE. CALM AND COOPERATIVE WITH CARE AND ASSESSMENT. DENIES THOUGHTS OF SELF HARM. REDIRECT AND REORIENT NEEDED. RESTING IN BED WITH EYES CLOSED AT THIS TIME. CONTINUE PLAN OF CARE.
[2019-02-14 07:00] VITALS: BP 153/73
--- NOTE | 2019-02-14 09:00 | NUR ---
PATIENT AWAKE AND ALERT X3 THIS MORNING. CALM AND COOPERATIVE WITH CARE AND ASSESSMENT. HE IS TALKING MORE ABOUT HIS SITUATION AND STATUS. FALL PRECAUTIONS IN PLACE. RATES PAIN LEVEL AT #5. REPOSITIONED FOR COMFORT. WILL CONTINUE POC.
--- NOTE | 2019-02-14 10:00 | NUR ---
PATIENT HAD A GOOD SOFT BOWEL MOVEMENT THIS MORNING AFTER BREAKFAST.
--- NOTE | 2019-02-14 10:30 | NUR ---
ENSURE VANILLA GIVEN PER REQUEST.
--- NOTE | 2019-02-14 12:41 | PN ---
PATIENT:SUGAR LIVE MEDICAL RECORD: [id number] LOCATION:[facility] ADMISSION DATE: 02/05/19 PROGRESS NOTE DATE OF SERVICE: 02/12/2019 SUBJECTIVE: The patient's case was discussed with staff. He has no new complaint. OBJECTIVE: The patient is not eating adequately. He has pretty limited insight about his situation. He says he does not want to hurt himself and would like to go home. ASSESSMENT: No change in diagnoses. PLAN: Supportive and educational interventions were made. Long-term prognosis is guarded. TRANSINT:[id number] Voice Confirmation ID: [id number] DOCUMENT ID: [id number] RAFIA DEE MD at 1241 CC: [id number] DICTATION DATE: 02/12/19 1038 VENEER PATCHER: 02/12/19 1229 ADM [id number] [place] [address]
--- NOTE | 2019-02-14 12:41 | PN ---
PATIENT:SUGAR LIVE MEDICAL RECORD: [id number] LOCATION:[facility] ADMISSION DATE: 02/05/19 PROGRESS NOTE DATE OF SERVICE: 02/13/2019 SUBJECTIVE: The patient's case was discussed with staff. He has no new complaint. OBJECTIVE: The patient denies intent to harm himself or others. He generally tolerates his medicines well. He has not been eating adequately. He is taking a reasonable dose of antidepressant medicine. He is also taking a good dose of Megace to stimulate his appetite. ASSESSMENT: Major depression. PLAN: Current medicines have been reviewed and will be maintained. Long-term prognosis is guarded. Supportive and educational interventions were made. TRANSINT:[id number] Voice Confirmation ID: [id number] DOCUMENT ID: [id number] RAFIA DEE MD at 1241 CC: [id number] DICTATION DATE: 02/13/19 1507 SURGERY NURSE: 02/13/19 1624 ADM IN [id number] [place] [address]
--- NOTE | 2019-02-14 14:00 | NUR ---
BEDBATH GIVEN IN BED, BUTTOCK DRESSING CLEANED WITH WOUND MANAGER MINING AND REDRESSED WITH MEPELIX DRESSING. REPOSITIONED ON RIGHT SIDE WITH EGGCRATE TO BACK.
[2019-02-14 20:08] VITALS: BP 143/78
[2019-02-15 08:04] VITALS: BP 165/73
--- NOTE | 2019-02-15 10:00 | NUR ---
PATIENT AWAKE AND ALERT, LYING IN BED. CALM AND COOPERATIVE WITH CARE AND ASSESSMENT, MEDICATION COMPLIANT, MONITOR FOR SAFETY, REPOSITIONED FREQUENTLY ON SIDES, WILL CONTINUE PLAN OF CARE.
--- NOTE | 2019-02-15 13:07 | PN ---
PATIENT:SUGAR LIVE MEDICAL RECORD: [id number] LOCATION:[facility] ADMISSION DATE: 02/05/19 PROGRESS NOTE DATE OF SERVICE: 02/14/2019 SUBJECTIVE: The patient's case was discussed with staff. He has no new complaint. OBJECTIVE: The patient is in good behavioral control with limited insight about his condition. He tolerates his medicines well. His mood has improved. ASSESSMENT: No change in diagnoses. PLAN: Supportive and educational interventions were made. Long-term prognosis is guarded. TRANSINT:[id number] Voice Confirmation ID: [id number] DOCUMENT ID: [id number] RAFIA DEE MD at 1307 CC: [id number] DICTATION DATE: 02/14/19 1324 DIRECTOR OF CLINICAL EDUCATION: 02/14/19 1331 ADM IN [id number] [place] [address]
[2019-02-15] MEDS ORDERED: DONEPEZIL HCL5 MG PO (14:26)
[2019-02-15] MEDS ORDERED: ROBAXIN PO (14:26)
[2019-02-15] MEDS ORDERED: CYMBALTA30 MG PO (14:28)
[2019-02-15] MEDS ORDERED: SENNA8.6 MG PO (14:29)
[2019-02-15] MEDS ORDERED: LYRICA75 MG PO (14:29)
[2019-02-15] MEDS ORDERED: FLORAJEN3 CAPS460 MG PO (14:29)
[2019-02-15] MEDS ORDERED: VITAMIN D5000 UNIT PO (14:30)
[2019-02-15] MEDS ORDERED: KENALOG 0.1 % 115 GM TOPICAL (14:30)
[2019-02-15] MEDS ORDERED: CALMOSEPTINE OI71 GM TOPICAL (14:30)
--- NOTE | 2019-02-15 16:47 | NUR ---
PATIENT HAS BEEN CALMER THIS AFTERNOON, JUST ANXIOUS TO GO HOME.
[2019-02-15 19:48] VITALS: BP 153/53
--- NOTE | 2019-02-16 07:15 | NUR ---
REC'D PT LAYING IN BED ON SIDE TO PREVENT PRESSURE TO COCCY AREA. NO ACUTE DISTRESS NOTED AT THIS TIME. PT C/O OF PAIN TO COCCYX AREA AND BUTTOCKS. PT TO BE REPOSITIONED Q 2 HOURS FOR COMFORT. BED ALARM IN PLACE. WILL CONT TO MONITOR Q 15 MINS FOR SAFETY.
[2019-02-16 09:13] VITALS: BP 155/58
--- NOTE | 2019-02-16 09:45 | NUR ---
B) The patient finished eating. He rang his gillette and said "I want off this side. The patient is trying to lay on his back, but he has skin shearing on his buttocks and a hole from a history of a repair on his coccyx. Tried to explain this, but the patient says "You just want me to have pain." Did get John Tomas RN to assist me with rotating him to his right side, provided him fresh iced water and put the call gillette within reach. He is irritable. He told John that he hopes he gets discharged today. He said "They were acting up last night." I) Provide prescribed meds, encourage the patietn to interact in groups and activities. R) The patient is laying in his bed today. He does does have a reddened right hand. He says he can not hear, did get close to his ear and asked him if he had a history of gout? He yelled "I don't know." P) Continue POC.
--- NOTE | 2019-02-16 11:00 | NUR ---
Dr. Ozuna went into his room to assess him. The patient says "I just want to leave." He had rolled himself onto the pillows, staff assisted him to roll to the left side, but he is irritable. Asked him if he would like the HOB elevated. he said "Well, if it's oj with you all, you just try everything in the world to make a person miserable." Roxie SKELTON, John Tomas RN, and Dr. Ozuna were in the room when he made the comment. Trying to help him from breaking down.
--- NOTE | 2019-02-16 11:30 | NUR ---
PT CALLED INQUIRING ABOUT TO SEE IF PATIENT WAS DISCHARGING TODAY. THIS NURSE LOOKED AT NOTES,ASKED OTHER NURSE AND NO DISCHARGE DATE WAS FOUND. NOTIFIED THE UNABLE TO FIND A DATE FOR DISCHARGE BUT WOULD SPEAK WITH THE DOCTOR WHEN HE COMES IN. UNAWARE OF TIME DOCTOR COMING IN THIS SHIFT. PT GAVE CELLPHONE NUMBER DUE TO BEING IN A HAIR APPOINTMENT AND DID NOT WANT TO MISS THE PHONE CALL. SHE STATED IF SHE DID NOT RECIEVE A PHONE CALL SHE WOULD SEE HIM AT 3:30 VISIT TIME. WILL NOTIFY HER IF WE RECIEVE A DISCHARGE DATE.
--- NOTE | 2019-02-16 11:50 | NUR ---
SPOKE WITH KERMIT AT [facility] IN REGARDS TO AN INQUIRY REGARDING PT. SHE WAS ASKING FOR A DISCHARGE DATE FOR PT. EXPLAINED WE WOULD HAVE TO NOTIFY [facility] WHEN WE RECIEVED A DATE FROM THE DOCTOR. LEFT NUMBER TO CALL [phone]. WILL CALL WHEN WE HAVE ANY NEW INFORMATION.
--- NOTE | 2019-02-16 12:53 | NUR ---
SPOKE WITH REQUESTING TO MOVE OFF OF EGG CRATE PILLOW UNDER TO SIDE KEEP PT OFF OF COCCYX. PT STATED "YEA THAT FEELS BETTER." PT WENT BACK TO EATING LUNCH. PT C/O OF LARGE RED SWOLLEN AREA TO RIGHT HAND. WILL SPEAK WITH DOCTOR REGARDING HAND. WILL CONT TO MONITOR Q 15 MINS FOR SAFETY.
--- NOTE | 2019-02-16 13:10 | NUR ---
PT RANG JUDD NURSE WENT INTO PT ROOM. PT STATED "YOU GOT SOMETHING SHOVED UP MY ASSHOLE YOU GOT ABOUT 5 MINUTES TO GET IT OUT!!" NURSE ATTEMPTED TO EXPLAIN THE ONLY THING UNDER THE PT WAS THE EGG CRATE I HAD JUST MOVED AND THE BLANKET IN ORDER TO MOVE PT. PT CONT TO ACCUSE NURSE OF STICKING SOMETHING UP HIS BUTTHOLE THAT I'D BETTER REMOVE IT NOW! NURSE CALLED FOR LISA CORONA TO HELP TURN PT AND PT BECAME AGRESSIVE, YELLING AND HITTING AT STAFF. PT WAS YELLING "YOU AIN'T ABOUT TO TOUCH ME! DON'T YOU DARE TOUCH ME." NURSE ADMINISTERED ATIVAN 0.5 MG AND HALDOL [address] WALKER ORDER. PT TOLERATED WELL. BED ALARM IN PLACE. WILL CONT TO MONITOR Q 15 MINS FOR SAFETY.
--- NOTE | 2019-02-16 14:16 | NUR ---
Nutrition Follow Up: Chart reviewed Diet: Regular; Ensure TID PO Intake: 79% meal avg - po intake much improved BM: 02/15/19 Labs reviewed Meds noted including Lasix Rec continue current diet, supplement regimen. RD following.
--- NOTE | 2019-02-16 14:51 | PN ---
PATIENT:SUGAR LIVE MEDICAL RECORD: [id number] LOCATION:[facility] ADMISSION DATE: 02/05/19 PROGRESS NOTE DATE OF SERVICE: 02/15/2019 SUBJECTIVE: The patient's case was discussed with staff. He has no new complaint. OBJECTIVE: The patient has a depressed mood, but no active thoughts of harming himself or others. He is tolerating his medications well. ASSESSMENT: No change in diagnoses. PLAN: There are some issues regarding home health and it is following up with him. I am optimistic that those can be adequately resolved and I plan to discharge the patient home tomorrow with home health assisting the in caring for him. I do not see him as currently being acutely dangerous. TRANSINT:[id number] Voice Confirmation ID: [id number] DOCUMENT ID: [id number] RAFIA DEE MD at 1451 CC: [id number] DICTATION DATE: 02/15/19 1426 OPERATIONS RESEARCH MANAGER: 02/15/19 1500 ADM IN [place] [id number] [place] [id number]
--- NOTE | 2019-02-16 16:55 | NUR ---
PT DISCHARGED HOME WITH AT THIS TIME. NO ACUTE DISTRESS NOTED. RESP EVEN AND NONLABORED. BELONGINGS GAVE TO AT THIS TIME. PT STABLE AT TIME OF DISCHARGE. PT LEFT IN [facility] ROUND CHAIR WITH . PAPERWORK SENT WITH FAMILY AT THIS TIME. PT STABLE. DISCHARGED AT THIS TIME.
--- NOTE | 2019-02-17 14:29 | PN ---
PATIENT:SUGAR LIVE MEDICAL RECORD: [id number] LOCATION:[facility] ADMISSION DATE: 02/05/19 PROGRESS NOTE DATE OF SERVICE: 02/16/2019 SUBJECTIVE: The patient's case was discussed with staff. He has no new complaint. OBJECTIVE: The patient is in good behavioral control. He has limited insight about his condition. He is tolerating his medications well. ASSESSMENT: No change in diagnoses. PLAN: Current medicines have been reviewed and will be maintained. I anticipate he can be transitioned out of the hospital today. Long-term prognosis is guarded. TRANSINT:[id number] Voice Confirmation ID: [id number] DOCUMENT ID: [id number] RAFIA DEE MD at 1429 CC: [id number] DICTATION DATE: 02/16/19 1507 TEACHER: 02/16/19 194 DIS IN 02/16/19 [facility] [address] [place] [address]
--- NOTE | 2019-02-19 10:12 | DS ---
PATIENT:SUGAR LIVE :41 MEDICAL RECORD: [id number] DISCHARGE SUMMARY ADMISSION DATE: 02/05/19 DISCHARGE DATE: 02/16/19 IDENTIFYING DATA: The patient is 73 years old and he was admitted to the hospital secondary to homicidal and suicidal thoughts. CHIEF COMPLAINT: Depression. HISTORY OF PRESENT ILLNESS: The patient is a very nice man who is under a great deal of stress. He apparently has had to have bilateral above-knee amputations because of poor circulation and has also gained weight, become more sedentary, idle and weaker, and is unable to adequately care for himself. He endorses numerous neurovegetative depressive symptoms. He did make statements that he was going to kill his and then himself, but now is minimizing that and saying he was just angry and upset. HOSPITAL COURSE: The patient was admitted to the hospital and fully evaluated from both a medical, psychological, and social standpoint. It was clear he had a significant dementia as well as a severe depressive illness. He was treated with antidepressant and mood stabilizing medications. He showed improvement and subsequently was discharged home with home health to help care for him. At the time of discharge, he was not having any thoughts of harming himself or others. DISCHARGE DIAGNOSES: AXIS I: 1. Vascular dementia. 2. Major depression, severe, single episode without psychosis. AXIS II: None. AXIS III: Peripheral vascular disease, diabetes, hypertension, gout, chronic kidney disease, coronary artery disease, chronic obstructive pulmonary disease, congestive heart failure and decubitus ulcer of sacral region. AXIS IV: Moderate. AXIS V: Global assessment of functioning is 30. PLAN: At the time of discharge, the patient was in good behavioral control. He had no active thoughts of harming himself or others. He was generally tolerating his medicines well. Followup is to be with his primary care physician and outpatient psychiatrist. TRANSINT:[id number] Voice Confirmation ID: [id number] DOCUMENT ID: [id number] RAFIA DEE MD at 1012 CC: [id number] DICTATION DATE: 02/18/19 1225 PICKER BOX OPERATOR: 02/18/19 1511 DIS IN 02/16/19 [place] [id number] [place] [address]
== END 2019-02-16 16:55 | disposition home or self-care (01) | DRG 885 ==
LOC: D.ER 12:32 → D.EDHOLD 15:31 → D.PSYCH 15:31
PROVIDERS: Family Medicine; Internal Medicine Nephrology; ADMIT Psychiatry & Neurology Psychiatry; ATTEND Psychiatry & Neurology Psychiatry
DX: F32.2 Major depressive disorder, single episode, severe without psychotic features (principal); I13.0 Hypertensive heart and chronic kidney disease with heart failure and stage 1 through stage 4 chronic kidney disease, or unspecified chronic kidney disease; F01.51 Vascular dementia, unspecified severity, with behavioral disturbance; R78.81 Bacteremia; Z68.45 Body mass index [BMI] 70 or greater, adult; M10.9 Gout, unspecified; E11.22 Type 2 diabetes mellitus with diabetic chronic kidney disease; I25.10 Atherosclerotic heart disease of native coronary artery without angina pectoris; J44.9 Chronic obstructive pulmonary disease, unspecified; I50.9 Heart failure, unspecified; N18.3 Chronic kidney disease, stage 3 (moderate); E55.9 Vitamin D deficiency, unspecified; K29.70 Gastritis, unspecified, without bleeding; R63.0 Anorexia; L89.152 Pressure ulcer of sacral region, stage 2; Z89.612 Acquired absence of left leg above knee; Z89.611 Acquired absence of right leg above knee